=== PATIENT | male | born 1960 | race Caucasian/White ===

== ENCOUNTER 2020-09-30 12:55 | Outpatient (REF) | payer OTHER, SELFPAY ==
--- NOTE | 2020-09-30 13:04 | XR_ITS ---
EXAMINATION: CERVICAL SPINE, THORACIC SPINE, BILATERAL SHOULDERS. CLINICAL INFORMATION: Pain. COMPARISON: None TECHNIQUE: Cervical spine 5 views. Thoracic spine 3 views. 4 views each shoulder. FINDINGS: Cervical spine: There is mild straightening of cervical lordosis. There is loss of C5-C6 and C6-C7 disc heights with moderate ventral spondylosis. Rest the disc heights are normal. There is moderate bilateral narrowing of neural foramina from uncovertebral hypertrophic changes at the C4-C5 and C5-C6 disc level. Thoracic spine: There is normal thoracic kyphosis. The vertebral heights and alignment is normal. Mild loss of T12-L1 and L1/L2 disc heights with moderate ventral spondylosis noted. There is minimal levoscoliosis and mid dorsal spine. No acute fracture, lytic or sclerotic process seen. The paravertebral soft tissues are normal. Right shoulder: There is mild loss of right AC joint space with periarticular spurring. The glenohumeral joint space is maintained normal. No fracture, loose bodies or subluxation seen. Left shoulder: The glenohumeral and AC joint space is maintained normal. No visible acute fracture, dislocation or subluxation seen. The soft tissues are normal. XR/XR thoracic spine 3V IMPRESSION: Degenerative disc changes C5-C6 and C6-C7 disc levels with ventral spondylosis. Facet joint arthropathy with bilateral narrowing of neural foramina as described above. Mild levoscoliosis mid dorsal spine. No acute fracture seen. There are degenerative disc changes T12-L1 and L1-L2 disc levels. Mild degenerative changes right AC joint. The left shoulder appears unremarkable.
--- NOTE | 2020-09-30 13:04 | XR_ITS ---
EXAMINATION: CERVICAL SPINE, THORACIC SPINE, BILATERAL SHOULDERS. CLINICAL INFORMATION: Pain. COMPARISON: None TECHNIQUE: Cervical spine 5 views. Thoracic spine 3 views. 4 views each shoulder. FINDINGS: Cervical spine: There is mild straightening of cervical lordosis. There is loss of C5-C6 and C6-C7 disc heights with moderate ventral spondylosis. Rest the disc heights are normal. There is moderate bilateral narrowing of neural foramina from uncovertebral hypertrophic changes at the C4-C5 and C5-C6 disc level. Thoracic spine: There is normal thoracic kyphosis. The vertebral heights and alignment is normal. Mild loss of T12-L1 and L1/L2 disc heights with moderate ventral spondylosis noted. There is minimal levoscoliosis and mid dorsal spine. No acute fracture, lytic or sclerotic process seen. The paravertebral soft tissues are normal. Right shoulder: There is mild loss of right AC joint space with periarticular spurring. The glenohumeral joint space is maintained normal. No fracture, loose bodies or subluxation seen. Left shoulder: The glenohumeral and AC joint space is maintained normal. No visible acute fracture, dislocation or subluxation seen. The soft tissues are normal. XR/XR shoulder LT min 2V IMPRESSION: Degenerative disc changes C5-C6 and C6-C7 disc levels with ventral spondylosis. Facet joint arthropathy with bilateral narrowing of neural foramina as described above. Mild levoscoliosis mid dorsal spine. No acute fracture seen. There are degenerative disc changes T12-L1 and L1-L2 disc levels. Mild degenerative changes right AC joint. The left shoulder appears unremarkable.
--- NOTE | 2020-09-30 13:04 | XR_ITS ---
EXAMINATION: CERVICAL SPINE, THORACIC SPINE, BILATERAL SHOULDERS. CLINICAL INFORMATION: Pain. COMPARISON: None TECHNIQUE: Cervical spine 5 views. Thoracic spine 3 views. 4 views each shoulder. FINDINGS: Cervical spine: There is mild straightening of cervical lordosis. There is loss of C5-C6 and C6-C7 disc heights with moderate ventral spondylosis. Rest the disc heights are normal. There is moderate bilateral narrowing of neural foramina from uncovertebral hypertrophic changes at the C4-C5 and C5-C6 disc level. Thoracic spine: There is normal thoracic kyphosis. The vertebral heights and alignment is normal. Mild loss of T12-L1 and L1/L2 disc heights with moderate ventral spondylosis noted. There is minimal levoscoliosis and mid dorsal spine. No acute fracture, lytic or sclerotic process seen. The paravertebral soft tissues are normal. Right shoulder: There is mild loss of right AC joint space with periarticular spurring. The glenohumeral joint space is maintained normal. No fracture, loose bodies or subluxation seen. Left shoulder: The glenohumeral and AC joint space is maintained normal. No visible acute fracture, dislocation or subluxation seen. The soft tissues are normal. XR/XR cervical spine 4V IMPRESSION: Degenerative disc changes C5-C6 and C6-C7 disc levels with ventral spondylosis. Facet joint arthropathy with bilateral narrowing of neural foramina as described above. Mild levoscoliosis mid dorsal spine. No acute fracture seen. There are degenerative disc changes T12-L1 and L1-L2 disc levels. Mild degenerative changes right AC joint. The left shoulder appears unremarkable.
== END 2020-09-30 12:56 | disposition home or self-care (01) ==
LOC: HO.LAB 12:55
PROVIDERS: Referring Provider Registered Nurse; Visit Provider Registered Nurse
DX: M25.511 Pain in right shoulder (principal); M25.512 Pain in left shoulder; M54.2 Cervicalgia; M54.9 Dorsalgia, unspecified; R22.0 Localized swelling, mass and lump, head
CPT/HCPCS: 72050; 72072; 73030

== ENCOUNTER 2020-10-28 12:07 | Outpatient (REF) | payer OTHER, SELFPAY ==
--- NOTE | ~2020-10-28 | XR_ITS ---
EXAMINATION: XR LUMBOSACRAL SPINE WITH OBLIQUES CLINICAL INFORMATION: Low back pain COMPARISON: None TECHNIQUE: AP, both oblique, and lateral views of the lumbar spine. Lateral view of the lumbosacral junction. FINDINGS: There is mild 4 mm retrolisthesis of L1 with respect to T12 and L2. Bone alignment is otherwise normal. No fracture or dislocation is seen. There is degenerative disc disease at L1-L2 and L5-S1. There is multilevel degenerative spondylosis. There is severe lower thoracic spine facet arthritis. XR/XR lumbar spine 4V min IMPRESSION: Mild retrolisthesis of L1 with respect to T12 and L2. Degenerative disc disease at L1-L2 and L5-S1. Severe lower lumbar spine facet arthritis.
--- NOTE | ~2020-10-28 | XR_ITS ---
EXAMINATION: XR HIP, BILATERAL CLINICAL INFORMATION: Hip pain. COMPARISON: None TECHNIQUE: Bilateral hips each 2 views. FINDINGS: In bilateral hips, there is normal articulation. Joint spaces are maintained. No acute fracture or dislocation. Subtle subchondral lucency in the superior acetabulum bilaterally, suggests mild degenerative changes. No acute pelvic fractures seen. Surgical clips projected over the scrotal region. XR/XR hip LT min 2V IMPRESSION: Mild bilateral hip joint degeneration. No acute findings.
--- NOTE | ~2020-10-28 | XR_ITS ---
EXAMINATION: XR HIP, BILATERAL CLINICAL INFORMATION: Hip pain. COMPARISON: None TECHNIQUE: Bilateral hips each 2 views. FINDINGS: In bilateral hips, there is normal articulation. Joint spaces are maintained. No acute fracture or dislocation. Subtle subchondral lucency in the superior acetabulum bilaterally, suggests mild degenerative changes. No acute pelvic fractures seen. Surgical clips projected over the scrotal region. XR/XR hip RT min 2V IMPRESSION: Mild bilateral hip joint degeneration. No acute findings.
== END 2020-10-28 12:08 | disposition home or self-care (01) ==
LOC: HO.XRAY 12:07
PROVIDERS: PCP General Practice; Visit Provider General Practice
DX: M25.551 Pain in right hip (principal); M25.552 Pain in left hip; M54.42 Lumbago with sciatica, left side
CPT/HCPCS: 72110; 73502

== ENCOUNTER → 2020-11-12 10:02 | Outpatient (BNVA) | payer OTHER, SELFPAY | PROVIDERS: PCP General Practice; Visit Provider Nurse Practitioner Family | DX: M54.16 Radiculopathy, lumbar region (principal); Z79.899 Other long term (current) drug therapy | CPT/HCPCS: 99202 ==

== ENCOUNTER 2020-11-27 18:51 | Outpatient (REF) | payer OTHER, SELFPAY ==
--- NOTE | ~2020-11-27 | MR_ITS ---
EXAMINATION: MR LUMBAR SPINE WITHOUT CONTRAST CLINICAL INFORMATION: Lumbar region radiculopathy. COMPARISON: Lumbar spine radiographs from 10/28/2020. TECHNIQUE: MRI of the lumbar spine was obtained using routine sequences without contrast. FINDINGS: Mild left convex curvature of the lumbar spine. Mild degenerative retrolisthesis of L1 on L2 and L3 on L4. Minimal degenerative grade 1 anterolisthesis of L4 on L5. Advanced degenerative disc disease at L1-L2 and L5-S1. Moderate degenerative disc disease at all additional lumbar levels. Associated mixed Modic type discogenic endplate change including mild Modic type I discogenic edema at L1-L2, L3-L4, and L5-S1. Mild marrow edema within the posterior elements of L3-L5 consistent with degenerative stress reaction. No additional suspicious marrow edema. Chronic anterior wedging of L1 with 10% loss of anterior body height. Schmorl's node within the inferior endplate of L3. Otherwise, the vertebral body heights are well-maintained. The conus medullaris terminates at the level of L1. The distal spinal cord is normal in appearance. No significant abnormalities of the paraspinal musculature. The prostate gland appears enlarged deforming the floor of the urinary bladder, measuring up to 5.5 cm. Limited evaluation of the intra-abdominal structures without significant abnormalities. The abdominal aorta is of normal contour and caliber. AXIAL SPINAL LEVELS: T12-L1: Mild diffuse disc bulge. There is moderate bilateral facet joint arthropathy. There is mild to moderate bilateral neural foraminal stenosis. There is mild spinal canal stenosis. L1-L2: Moderate diffuse disc bulge. There is moderate to severe bilateral facet joint arthropathy. There is severe right and moderate left neural foraminal stenosis. There is stenosis of the subarticular zones with mild spinal canal stenosis centrally. L2-L3: Shallow diffuse disc bulge. There is moderate bilateral facet joint arthropathy. There is no neural foraminal stenosis. There is no spinal canal stenosis. L3-L4: Moderate diffuse disc bulge. There is an ovoid structure with T1 hypointensity and weak T2 hyperintensity filling the right subarticular zone, measuring 0.7 x 0.7 x 1.4 cm. This lesion appears extradural in nature. There is moderate bilateral facet joint arthropathy. There is severe right and moderate to severe left neural foraminal stenosis. There is stenosis of the right subarticular zone with no overt spinal canal stenosis centrally. L4-L5: Moderate diffuse disc bulge. There is severe right and moderate left facet joint arthropathy. There is moderate to severe left and moderate right neural foraminal stenosis. There is stenosis of the subarticular zones with mild to moderate spinal canal stenosis centrally. L5-S1: Moderate diffuse disc bulge with posterior osseous ridging. There is moderate bilateral facet joint arthropathy. There is severe bilateral neural foraminal stenosis. There is stenosis of the subarticular zones with no overt spinal canal stenosis centrally. MR/MR lumbar spine wo con IMPRESSION: 1. There is an ovoid structure filling the right subarticular zone at L3-L4. The appearance favors extruded/sequestered disc material; however, it would be difficult to exclude a small schwannoma. Follow-up contrast-enhanced imaging may help to further characterize. 2. Otherwise, moderate to advanced multilevel degenerative spondyloarthropathy of the lumbar spine as described in detail above. Most notably, there is mild to moderate spinal canal stenosis at L4-L5. Mild spinal canal stenoses at T12-L1 and L1-L2. Stenoses of the subarticular zones at L1-L2 and from L3-S1. Moderate to severe neural foraminal stenoses from T12-L2 and L3-S1. 3. Limited evaluation appears to demonstrate enlargement of the prostate gland with indenting of the floor of the urinary bladder.
== END 2020-11-27 18:52 | disposition home or self-care (01) ==
LOC: HO.MRI 18:51
PROVIDERS: Visit Provider Anesthesiology
DX: M54.16 Radiculopathy, lumbar region (principal)
CPT/HCPCS: 72148

== ENCOUNTER → 2020-12-03 08:59 | Outpatient (BNVA) | payer OTHER, SELFPAY | PROVIDERS: Visit Provider Nurse Practitioner Family | DX: M54.16 Radiculopathy, lumbar region (principal) | CPT/HCPCS: 99212 ==

== ENCOUNTER 2020-12-23 14:57 | Outpatient (REF) | payer OTHER, SELFPAY ==
--- NOTE | ~2020-12-23 | MR_ITS ---
MR LUMBAR SPINE WITH CONTRAST CLINICAL INFORMATION: Abnormal findings on prior lumbar spine MRI. COMPARISON: Lumbar spine MRI 11/27/2020. TECHNIQUE: MRI of the lumbar spine was obtained using routine sequences with contrast. Intravenous contrast: Gadavist 8.5 mL. FINDINGS: The previously described abnormality within the right L3-L4 subarticular zone/right L4 lateral recess reflects a peripherally enhancing inferiorly migrating right paracentral disc extrusion arising from the L3-L4 disc that compresses the traversing right L4 nerve root within the right L4 lateral recess. No solid enhancing mass lesions. Right-sided Modic type I endplate signal changes at L3-L4. Advanced multilevel degenerative changes are better seen and described in detail on the previous diagnostic lumbar spine MRI. Please see that report for further details. MR/MR lumbar spine w con IMPRESSION: - The previously described abnormality within the right L3-L4 subarticular zone/right L4 lateral recess reflects a peripherally enhancing inferiorly migrating right paracentral disc extrusion arising from the L3-L4 disc that compresses the traversing right L4 nerve root within the right L4 lateral recess on image 20 of series 3. No solid enhancing mass lesions. - Advanced multilevel degenerative changes are better seen and described in detail on the previous diagnostic lumbar spine MRI. Please see that report for further details.
== END 2020-12-23 14:58 | disposition home or self-care (01) ==
LOC: HO.MRI 14:57
PROVIDERS: Visit Provider Anesthesiology
DX: R93.7 Abnormal findings on diagnostic imaging of other parts of musculoskeletal system (principal)
CPT/HCPCS: 72149; A9585

== ENCOUNTER → 2020-12-30 09:35 | Outpatient (BNVA) | payer OTHER, SELFPAY | PROVIDERS: PCP General Practice; Visit Provider Nurse Practitioner Family | DX: M54.16 Radiculopathy, lumbar region (principal); M48.061 Spinal stenosis, lumbar region without neurogenic claudication; M47.816 Spondylosis without myelopathy or radiculopathy, lumbar region | CPT/HCPCS: Q3014 ==

== ENCOUNTER 2020-12-31 14:53 | Outpatient (REF) | payer OTHER, SELFPAY ==
[2020-12-31 15:51] LABS: Blood Urea Nitrogen 20 mg/dL (9-16); Estimated Glomerular Filt Rate > 60
[2020-12-31 16:25] LABS: Prostate Specific Antigen 3.77 ng/mL (<0.05-4.0)
== END 2020-12-31 14:54 | disposition home or self-care (01) ==
LOC: HO.LAB 14:53
PROVIDERS: Absent Provider Nurse Practitioner Family; PCP General Practice; Visit Provider Urology
DX: Z01.818 Encounter for other preprocedural examination (principal); Z12.5 Encounter for screening for malignant neoplasm of prostate; N13.8 Other obstructive and reflux uropathy; N40.1 Benign prostatic hyperplasia with lower urinary tract symptoms
CPT/HCPCS: 36415; 82565; 84153; 84520

== ENCOUNTER → 2021-01-02 11:48 | Outpatient (BNVA) | payer OTHER, SELFPAY | PROVIDERS: PCP General Practice; Visit Provider Urology | DX: N40.1 Benign prostatic hyperplasia with lower urinary tract symptoms (principal); N52.01 Erectile dysfunction due to arterial insufficiency | CPT/HCPCS: 99212 ==

== ENCOUNTER 2021-01-07 17:00 | Outpatient (RCR) | payer OTHER, SELFPAY | END 2021-01-13 10:22 | disposition other institution (70) | LOC: HO.PT 17:00 | PROVIDERS: Visit Provider Internal Medicine | DX: M54.41 Lumbago with sciatica, right side (principal) | CPT/HCPCS: 97110; 97112; 97162 ==

== ENCOUNTER 2021-01-12 08:22 | Outpatient (REF) | payer OTHER, SELFPAY ==
--- NOTE | ~2021-01-12 | XR_ITS ---
EXAMINATION: RIGHT HIP. RIGHT KNEE. CLINICAL INFORMATION: Pain. COMPARISON: None TECHNIQUE: 2 views right hip. 4 views right knee. FINDINGS: Right hip: 2 views of right hip reveal no visible acute fracture, dislocation or bony erosive changes. No loose body seen. The soft tissues are normal. There is evidence of previous vasectomy changes along the proximal scrotum. Right knee: The tricompartment joint space is normal. There is no visible acute fracture, dislocation or subluxation seen. No joint effusion seen. No bony abnormality. XR/XR hip RT min 2V IMPRESSION: Unremarkable right hip and right knee exam.
--- NOTE | ~2021-01-12 | XR_ITS ---
EXAMINATION: RIGHT HIP. RIGHT KNEE. CLINICAL INFORMATION: Pain. COMPARISON: None TECHNIQUE: 2 views right hip. 4 views right knee. FINDINGS: Right hip: 2 views of right hip reveal no visible acute fracture, dislocation or bony erosive changes. No loose body seen. The soft tissues are normal. There is evidence of previous vasectomy changes along the proximal scrotum. Right knee: The tricompartment joint space is normal. There is no visible acute fracture, dislocation or subluxation seen. No joint effusion seen. No bony abnormality. XR/XR knee RT 4V IMPRESSION: Unremarkable right hip and right knee exam.
== END 2021-01-12 08:23 | disposition home or self-care (01) ==
LOC: HO.XRAY 08:22
PROVIDERS: PCP General Practice; Visit Provider General Practice
DX: M25.561 Pain in right knee (principal); M25.551 Pain in right hip
CPT/HCPCS: 73502; 73564

== ENCOUNTER 2021-07-15 14:54 | Outpatient (REF) | payer OTHER, SELFPAY ==
[2021-07-15 17:54] LABS: PSA,Total (Free>4and<10) 1.79 ng/mL (0.00-4.00)
== END 2021-07-15 14:55 | disposition home or self-care (01) ==
LOC: HO.LAB 14:54
PROVIDERS: PCP General Practice; Visit Provider Urology
DX: Z12.5 Encounter for screening for malignant neoplasm of prostate (principal); N40.1 Benign prostatic hyperplasia with lower urinary tract symptoms; N13.8 Other obstructive and reflux uropathy
CPT/HCPCS: 36415; 84153

== ENCOUNTER → 2021-07-17 09:50 | Outpatient (BNVA) | payer OTHER, SELFPAY | PROVIDERS: PCP General Practice; Visit Provider Urology | DX: N40.1 Benign prostatic hyperplasia with lower urinary tract symptoms (principal); N13.8 Other obstructive and reflux uropathy; N52.01 Erectile dysfunction due to arterial insufficiency | CPT/HCPCS: 51798; 99212 ==

== ENCOUNTER 2021-11-18 14:00 | Outpatient (REF) | payer OTHER, SELFPAY ==
--- NOTE | ~2021-11-18 | XR_ITS ---
EXAMINATION: XR shoulder RT min 2V CLINICAL INFORMATION: Reason for Exam PAIN IN RIGHT SHOULDER COMPARISON: None TECHNIQUE: Four views of the shoulder. XR/XR shoulder RT min 2V FINDINGS/IMPRESSION: No acute fracture or dislocation. Mild degenerative changes of the acromioclavicular joint with degenerative spurring. Glenohumeral joint space is maintained. Soft tissues are unremarkable. Visualized portion of lung appears clear.
--- NOTE | ~2021-11-18 | XR_ITS ---
EXAMINATION: XR hip RT min 2V CLINICAL INFORMATION: Reason for Exam PAIN IN RIGHT HIP COMPARISON: Pelvic radiographs 10/28/2020 and 01/12/2021 TECHNIQUE: Two views of the hip. XR/XR hip RT min 2V FINDINGS/IMPRESSION: No acute fracture or dislocation. Moderate degenerative changes of the hip with loss of superolateral joint space which appears progressed from prior. Os acetabuli. Few calcified phleboliths in the pelvis. Stable subcentimeter sclerotic density in the right femur, possibly reflective of a bone island.
== END 2021-11-18 14:01 | disposition home or self-care (01) ==
LOC: HO.XRAY 14:00
PROVIDERS: PCP General Practice; Visit Provider General Practice
DX: M25.511 Pain in right shoulder (principal)
CPT/HCPCS: 73030; 73502

== ENCOUNTER 2021-12-03 09:54 | Outpatient (REF) | payer OTHER, SELFPAY ==
--- NOTE | ~2021-12-03 | XR_ITS ---
EXAMINATION: XR PELVIS CLINICAL INFORMATION: Pain in the hip COMPARISON: 11/18/2021 TECHNIQUE: AP view of the pelvis. FINDINGS: No fracture or dislocation. The hips are well aligned. Moderate degenerative change of the right hip with joint space narrowing, sclerosis, and osteophyte formation. Mild degenerative change of the left hip. The pelvic rim is intact. The sacroiliac joints and pubic symphysis are well aligned. Degenerative changes are seen at the lower lumbar spine. XR/XR pelvis 1-2V IMPRESSION: Moderate degenerative changes of the right hip.
== END 2021-12-03 09:55 | disposition home or self-care (01) ==
LOC: HO.HOSX 09:54
PROVIDERS: Visit Provider Orthopaedic Surgery
DX: M25.551 Pain in right hip (principal); M25.552 Pain in left hip; M53.86 Other specified dorsopathies, lumbar region; M16.11 Unilateral primary osteoarthritis, right hip; S43.001D Unspecified subluxation of right shoulder joint, subsequent encounter; V29.9XXD Motorcycle rider (driver) (passenger) injured in unspecified traffic accident, subsequent encounter; M54.12 Radiculopathy, cervical region; F17.210 Nicotine dependence, cigarettes, uncomplicated; F10.21 Alcohol dependence, in remission; F19.11 Other psychoactive substance abuse, in remission; F31.9 Bipolar disorder, unspecified
CPT/HCPCS: 72170; 99202

== ENCOUNTER 2022-02-02 14:00 | Outpatient (RCR) | payer OTHER, SELFPAY | END 2022-04-07 15:08 | disposition home or self-care (01) | LOC: HO.PT 14:00 | PROVIDERS: PCP General Practice; Visit Provider General Practice | DX: M25.551 Pain in right hip (principal) | CPT/HCPCS: 97110; 97161 ==

== ENCOUNTER 2022-02-04 13:59 | Outpatient (REF) | payer OTHER, SELFPAY ==
--- NOTE | ~2022-02-04 | US_ITS ---
EXAMINATION: US SCROTUM CLINICAL INFORMATION: Right testicular mass. COMPARISON: None TECHNIQUE: A sonogram of the scrotum was performed assessing leos-scale appearance and color Doppler flow. Spectral Doppler analysis of the arterial and venous flow were performed in the testes bilaterally. FINDINGS: RIGHT: Right testicle measures 3.77 x 1.64 x 2.96 cm, volume 9.59 mL. There is a small approximately 0.1 cm calcification in the periphery of the testicle. Spectral Doppler analysis of the arterial and venous flow is normal in the right testis. Right epididymal Doppler flow is normal. There are prominent varicosities, some of which demonstrate internal heterogeneous content, suggesting varicocele with possible thrombosis. There is a small hydrocele with internal septations and layering debris. LEFT: Left testicle measures 3.55 x 1.52 x 2.84 cm, volume 8.01 mL. There are several subcentimeter calcifications, largest measuring up to 0.1 cm. Spectral Doppler analysis of the arterial and venous flow is normal in the left testis. Left epididymal Doppler flow is increased. There is an elongated hyperechoic structure measuring approximately 0.5 cm in length in the soft tissues anterior to the left testis with posterior dirty shadowing. Varicoceles are also noted. There is a moderate size hydrocele with low-level echoes. US/US scrotum IMPRESSION: Complex examination with several findings. 1. Asymmetric hyperemia of the left epididymis raising the possibility of acute epididymitis. 2. Nonspecific elongated hyperechoic structure with posterior dirty shadowing adjacent to the left testis, could represent a foreign body with surrounding air. Recommend correlation with physical examination for history of trauma or a gangrenous infection. 3. Left greater than right hydroceles with debris and septations, concerning for superimposed infection. 4. Bilateral varicoceles. Some of these engorged veins are thrombosed on the right side. 5. Nonspecific bilateral testicular calcifications. This critical result was discussed with Diana HERNANDEZ at 02/05/2022 4:37 PM and it was ascertained that the content and urgency of the report was understood at the time of direct communication.
== END 2022-02-04 14:00 | disposition home or self-care (01) ==
LOC: HO.HMGCX 13:59
PROVIDERS: Visit Provider General Practice
DX: N50.89 Other specified disorders of the male genital organs (principal)
CPT/HCPCS: 76870

== ENCOUNTER 2022-03-12 16:00 | Emergency (ER) | payer OTHER, SELFPAY ==
--- NOTE | ~2022-03-12 | US_ITS ---
EXAMINATION: US SCROTUM CLINICAL INFORMATION: Right testicular pain. Question epididymitis.. COMPARISON: Scrotal ultrasound dated 02/04/2022. TECHNIQUE: A sonogram of the scrotum was performed assessing leos-scale appearance and color Doppler flow. Spectral Doppler analysis of the arterial and venous flow were performed in the testes bilaterally. FINDINGS: RIGHT: Right testicle measures 3.9 x 2.7 x 2.3 cm, volume 12.4 mL. A few scattered parenchymal calcifications are seen, nonspecific. No focal testicular parenchymal lesions are visualized. Spectral Doppler analysis of the arterial and venous flow in the right testis was not performed. Right epididymal head is normal in size. The previously demonstrated right varicocele is not specifically imaged, though some serpiginous vascular structures are seen in the soft tissues posterior to the right testicle, incompletely visualized. There is a persistent small complex hydrocele with low-level internal echoes and thin internal septations, similar to the previous exam. Right epididymal Doppler flow is normal. LEFT: Left testicle measures 3.6 x 2.1 x 2.4 cm, volume 9.5 mL. Nonspecific coarse calcifications is seen in region of the rete testes. No focal testicular parenchymal lesions are visualized. Spectral Doppler analysis of the arterial and venous flow in the left testis was not performed. Left epididymal head is normal in size. Small left mildly complicated hydrocele with internal septations and low-level internal echoes. Previously seen left-sided varicocele was not definitely seen.. Left epididymal Doppler flow is normal.there is a linear echogenic foreign body seen in the extratesticular soft tissues in the lateral left hemiscrotum, measuring 0.6 cm in length. There is a small complex hydrocele again noted with low-level internal echoes and thin internal septations, similar to the prior exam. US/US scrotum IMPRESSION: 1. No evidence of epididymoorchitis. No definite evidence of testicular torsion, though evaluation is mildly limited without the benefit of spectral Doppler assessment. The patient had left the department and could not be brought back for spectral Doppler analysis. 2. Bilateral complex hydroceles again seen. 3. Varicoceles previously demonstrated are poorly visualized on this exam. 4. Redemonstration of linear echogenic foreign body in the soft tissues lateral to the left testicle.
[2022-03-12 16:07] VITALS: BP 143/93; PULSE 124; RESP 18; TEMP 36.4; O2SAT 95; BMI 30.7
[2022-03-12 16:28] LABS: MANUAL DIFF FLAG NO
[2022-03-12 16:29] LABS: Basophils Percent Auto 0.4 % (0-2); Eosinophils Absolute Auto 0.2 X10*3/uL (0.0-0.4); Eosinophils Percent Auto 1.9 % (0-4); Hematocrit 48.8 % (42.0-52.0); Hemoglobin 16.2 g/dl (14.0-18.0); Imm Gran Abs Auto 0.03 X10*3/uL (0.00-0.03); Imm Gran Pct Auto 0.3 % (0.0-0.4); Lymphocytes Absolute Auto 2.6 X10*3/uL (1.2-4.9); Lymphocytes Percent Auto 25.3 % (20-40); Mean Corpuscular HGB Conc 33.2 g/dl (31.0-36.0); Mean Corpuscular Hemoglobin 29.6 pg (27.0-33.0); Mean Corpuscular Volume 89.2 fL (80.0-98.0); Mean Platelet Volume 8.7 fL (9.4-12.4); Monocytes Percent Auto 9.8 % (2-11); Neutrophils Absolute Auto 6.5 x10*3/uL (2.0-8.3); Neutrophils Percent Auto 62.3 % (45-73); Platelet Count 332 X10*3/uL (160-400); Red Blood Count 5.47 X10*6/uL (4.60-5.80); Red Cell Distribution Width 13.4 % (11.0-16.0); White Blood Count 10.4 X10*3/uL (4.8-10.8)
[2022-03-12 16:37] LABS: Appearance Urine HAZY; Color Urine DK YELLOW; Glucose Urine UA NEG (NEG); Leukocyte Esterase Urine NEG (NEG); Nitrite Urine NEG (NEG); Specific Gravity - Urine >= 1.030 (1.005-1.025); UACC Culture Trigger NO; Urine Blood 3+ (NEG); Urine Ketones 5 MG/DL (NEG); Urine Protein 2+ MG/DL (NEG-TRACE)
[2022-03-12 16:54] LABS: Amorphous Sediment Urine 2+ /LPF; Calcium Oxalate Crystals Urine TRACE /LPF; Mucus Urine 4+ /LPF; RBC Urine 30-49 /HPF (0); Squamous Epithelial Cell Urine TRACE /LPF; WBC Urine 0 /HPF (0-4)
[2022-03-12 16:57] LABS: Alanine Aminotransferase 22 U/L (0-40); Albumin Level 4.2 g/dL (3.5-5.0); Alkaline Phosphatase 86 U/L (39-117); Anion Gap 12 (12-20); Aspartate Amino Transferase 16 U/L (5-37); Bilirubin Total 0.4 mg/dL (0.0-1.0); Blood Urea Nitrogen 15 mg/dL (9-16); Calcium 9.4 mg/dL (8.4-10.2); Carbon Dioxide 25 mmol/L (22-29); Chloride 107 mmol/L (96-108); Creatinine Clr Calc Pharmacy 74.8; Estimated Glomerular Filt Rate > 60; Glucose Random 128 mg/dL (60-115); Lipase 23 U/L (8-78); Sodium 140 mmol/L (135-145); Total Protein 6.6 g/dL (6.5-8.0)
--- NOTE | 2022-03-12 17:19 | ED.MALEGU ---
HPI - Male Genitourinary General Chief complaint: Urogenital-Male Stated complaint: Infection left testicle Time Seen by Provider: 03/12/22 17:19 Source: patient Mode of arrival: ambulatory Limitations: no limitations History of Present Illness HPI Narrative: Patient's history of a right epididymitis in 02/24 been treated with Levaquin comes here for increased pain and swelling for last few days now complaining of pain in the left testicle also no penile discharge no urinary symptoms Related Data Home Medications Medication Instructions Recorded Confirmed acetaminophen 650 mg 1,300 mg PO BID PRN 11/12/20 12/30/20 tablet,extended release bupropion HCl (smoking deter) 150 150 mg PO BID 11/12/20 12/30/20 mg tablet,12 hr sustained-release(smoking deterrent) diclofenac sodium 1 % topical gel g topical 11/12/20 12/30/20 divalproex 250 mg tablet,delayed 250 mg PO BID 11/12/20 12/30/20 release atorvastatin 20 mg tablet 20 mg PO DAILY 01/02/21 ibuprofen 800 mg tablet 800 mg PO TID 01/02/21 sildenafil 50 mg tablet 50 mg PO DAILY PRN 01/02/21 Previous Rx's Medication Instructions Recorded tamsulosin 0.4 mg capsule 0.4 mg PO BEDTIME PRN Urinary 01/08/21 weakness 30 days #30 caps doxycycline hyclate 100 mg tablet 100 mg PO BID #20 tabs 03/12/22 ibuprofen 600 mg tablet 600 mg PO Q6H PRN pain #20 tabs 03/12/22 Allergies Allergy/AdvReac Type Severity Reaction Status Date / Time No Known Allergies Allergy Verified 07/17/21 10:01 [No Known Allergies*] Review of Systems Review of Systems: Yes all other systems are reviewed and are negative [facility] Past Medical History Medical History Alcoholism in remission Benign prostatic hyperplasia with lower urinary tract symptoms Bipolar 1 disorder Cervical radiculopathy Chronic neck and back pain Drug addiction in remission History of adenomatous polyp of colon Social History Social History Alcohol intake: former Patient Tobacco Use Status: Current everyday Tobacco user Tobacco use type: Cigarette Cigarettes Per Day: 20 Years Smoked: 35 Advance Directives: No Advance Directives Information Provided: Yes Physical Exam Vital Signs: Vital Signs: Last Vital Signs Temp 97.6 F 03/12/22 16:07 Pulse 99 03/12/22 17:26 Resp 18 03/12/22 17:26 BP 113/71 03/12/22 17:26 Pulse Ox 95 03/12/22 17:26 O2 Del Method 03/12/22 17:26 BMI result Body Mass Index 30.7 Appearance: Alert. Oriented X3. No acute distress. Neck: Normal inspection. Neck supple. CVS: Normal heart rate and rhythm. Pulses normal. Respiratory: No respiratory distress. Equal air entry bilateral, Abdomen: Soft and nontender. Bowel sounds are present, no mass palpable, no CVA tenderness Skin: Skin warm and dry. Normal skin color. Normal skin turgor. Extremities: No lower extremity edema. No calf tenderness Neuro: Oriented X 3. : Male genitals images: 1. Slight swelling of the epididymis with tenderness no fluid collection no hydrocele or hernia MDM - Male Genitourinary MDM Narrative Medical decision making narrative: Please complex right hydrocele patient patient home advised to follow with urologist Lab Data Attestation: I reviewed the patient's lab results. Result diagrams: 03/12/22 16:21 03/12/22 16:21 Labs: Lab Results 03/12/22 03/12/22 03/12/22 Range/Units 16:21 16:21 16:21 WBC 10.4 (4.8-10.8) X10*3/uL RBC 5.47 (4.60-5.80) X10*6/uL Hgb 16.2 (14.0-18.0) g/dl Hct 48.8 (42.0-52.0) % MCV 89.2 (80.0-98.0) fL MCH 29.6 (27.0-33.0) pg MCHC 33.2 (31.0-36.0) g/dl RDW 13.4 (11.0-16.0) % Plt Count 332 (160-400) X10*3/uL MPV 8.7 L (9.4-12.4) fL Immature Gran % (Auto) 0.3 (0.0-0.4) % Neut % (Auto) 62.3 (45-73) % Lymph % (Auto) 25.3 (20-40) % [place] % (Auto) 9.8 (2-11) % Eos % (Auto) 1.9 (0-4) % Baso % (Auto) 0.4 (0-2) % Lymph # (Auto) 2.6 (1.2-4.9) X10*3/uL [place] # (Auto) 1.0 (0.1-1.2) X10*3/uL Eos # (Auto) 0.2 (0.0-0.4) X10*3/uL Baso # (Auto) 0.0 (0.0-0.2) X10*3/uL Abs Immat Gran (auto) 0.03 (0.00-0.03) X10*3/uL Absolute Neuts (auto) 6.5 (2.0-8.3) x10*3/uL Absolute Nucleated RBC 0.000 (0.0-0.012) X10*3/uL Nucleated RBC % (auto) 0.0 (0.0-0.2) /100WBC Sodium 140 (135-145) mmol/L Potassium 4.0 (3.3-5.1) mmol/L Chloride 107 (96-108) mmol/L Carbon Dioxide 25 (22-29) mmol/L Anion Gap 12 (12-20) BUN 15 (9-16) mg/dL Creatinine 1.08 (0.5-1.4) mg/dL Estim Creat Clear Calc 74.8 Estimated GFR > 60 Random Glucose 128 H (60-115) mg/dL Calcium 9.4 (8.4-10.2) mg/dL Total Bilirubin 0.4 (0.0-1.0) mg/dL AST 16 (5-37) U/L ALT 22 (0-40) U/L Alkaline Phosphatase 86 (39-117) U/L Total Protein 6.6 (6.5-8.0) g/dL Albumin 4.2 (3.5-5.0) g/dL Lipase 23 (8-78) U/L Urine Color DK YELLOW Urine Appearance HAZY Urine pH 6.0 (5.0-8.0) Ur Specific [place] >= 1.030 H (1.005-1.025) Urine Protein 2+ H (NEG-TRACE) MG/DL Urine Glucose (UA) NEG (NEG) MG/DL Urine Ketones 5 (NEG) MG/DL Urine Blood 3+ H (NEG) Urine Nitrite NEG (NEG) Ur Leukocyte Esterase NEG (NEG) Urine RBC 30-49 H (0) /HPF Urine WBC 0 (0-4) /HPF Ur Squamous Epith Cells TRACE /LPF Calcium Oxalate Crystal TRACE /LPF Amorphous Sediment 2+ /LPF Urine Bacteria NONE /LPF RBC Casts 1-4 /LPF Urine Mucus 4+ /LPF Discharge Plan Discharge Clinical Impression: Hydrocele, right Patient Disposition: Home, Self-Care Instructions: Hydrocele (ED) Additional Instructions: Scrotal support as advised Follow with urologist Doxycycline and ibuprofen for inflammation Prescriptions: New ibuprofen 600 mg tablet 600 mg PO Q6H PRN (Reason: pain) Qty: 20 0RF doxycycline hyclate 100 mg tablet 100 mg PO BID Qty: 20 0RF No Action tamsulosin 0.4 mg capsule 0.4 mg PO BEDTIME PRN (Reason: Urinary weakness) 30 Days Qty: 30 6RF acetaminophen 650 mg tablet extended release 1,300 mg PO BID PRN divalproex 250 mg tablet,delayed release (DR/EC) 250 mg PO BID diclofenac sodium 1 % gel topical bupropion HCl (smoking deter) 150 mg tablet extended release 12 hr 150 mg PO BID ibuprofen 800 mg tablet 800 mg PO TID sildenafil 50 mg tablet 50 mg PO DAILY PRN atorvastatin 20 mg tablet 20 mg PO DAILY Referrals: Silvino Dwyer MD [Physician] - 1 week Interventions: ED Discharge Assessment Last Done: 03/12/22 20:13
[2022-03-12 17:26] VITALS: BP 113/71; PULSE 99; RESP 18; O2SAT 95
[2022-03-12] MEDS: Ibuprofen 600 MG TABLET PO (19:44)
[2022-03-13 02:44] LABS: CT PCR NOT DETECTED (Not Detect.); NG PCR NOT DETECTED (Not Detect.)
== END 2022-03-12 20:22 | disposition home or self-care (01) ==
PROVIDERS: Emergency Provider Internal Medicine; PCP General Practice
DX: N43.2 Other hydrocele (principal); N50.812 Left testicular pain; N50.811 Right testicular pain; F17.200 Nicotine dependence, unspecified, uncomplicated; F11.11 Opioid abuse, in remission; F10.11 Alcohol abuse, in remission
CPT/HCPCS: 36415; 76870; 80053; 81001; 83690; 85025; 87491; 87591; 99284

== ENCOUNTER 2022-08-05 12:15 | Outpatient (REF) | payer OTHER, SELFPAY | END 2022-08-05 12:16 | disposition home or self-care (01) | LOC: HO.HOSX 12:15 | PROVIDERS: Visit Provider Orthopaedic Surgery | DX: Z13.89 Encounter for screening for other disorder (principal) ==

== ENCOUNTER 2022-10-20 11:00 | Outpatient (RCR) | payer OTHER, SELFPAY ==
--- NOTE | 2022-10-20 12:24 | P.HPPSP_ITS ---
HPI Date of Service: 10/20/22 Chief Complaint: bipolar,[place] Sources of Information: patient interviewed, chart reviewed and crisis/core team assessment reviewed HPI Medical Problems Affecting Mental Status: No Narrative: Mr. Friedman is a male, referred to partial program through his therapist, due to increased symptoms of depression, including isolation, feeling helpless, poor sleep, decreased energy, decreased appetite alternating with over eating, poor concentration. History of bipolar I and cocaine use disorder. Patient explains that past several years due to COVID he has become more more isolated, where his symptoms have steadily worsened. Also would have cocaine delivered to his home. States he would use when he got paid the beginning of the month, and it would last approximately 1 week. Lives alone. First sought treatment with a therapist in 1991, while in [place]. Has been treated off and on in the past for bipolar disorder, has had good effect with Depakote in the past. Has had episodes of coby/hypomania in his past, where he would stay up for days at a time, start multiple projects in the home, with grandiosity, flight of ideas, pressured speech, engagement in risky behaviors. Was recently started with Depakote 250 mg b.i.d. last week. Had also taken trazodone in the past, which helped with sleep. Had been taking 100 mg from an old script, dose was changed last week to 50 mg at bedtime. He states that it is helping, although continues to struggle with staying asleep. Denies any SI/HI, no safety concerns. 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 Last use of coke was 4-5 days ago. No cravings or withdrawals at this time. Describes mood today as ?impressively normal ?, but then states that he is experiencing some depression and anxiety. Looks forward to participation in the program, as he would like to become more active in his own mental health, does not want to isolate an continue to have symptoms worsen. Also would like to focus on recovery from cocaine use. Past Psychiatric History: Medication trials: Wellbutrin, Depakote, trazodone, took others, but does not recall the names. PHP in early . Has therapist, recently met with a psych prescriber through [facility], does not recall name. No IP hx Medical Evaluation Reviewed: Yes [facility] Medical History Alcoholism in remission Benign prostatic hyperplasia with lower urinary tract symptoms Bipolar 1 disorder Cervical radiculopathy Chronic neck and back pain Drug addiction in remission History of adenomatous polyp of colon Family History: Mother: Depression/anxiety Social History: Born and raised in [facility], 1 sister, 1 brother. 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 and 3 times. Two daughters 1 son. History of homelessness. Currently living in subsidized housing, would like to move to a safer neighborhood. Substance History: Nicotine: Longstanding, current half pack per day. Cannabis longstanding, occasional. Last used 10/16/2022. Crack cocaine since , longstanding chronic, last use 10/16/2022. Alcohol: history alcohol use disorder, last use 2018. Trauma History: Reports trauma history, no details provided Meds/Allergies Meds Home Medications Medication Instructions Recorded Confirmed Type acetaminophen 650 mg 1,300 mg PO BID PRN 11/12/20 12/30/20 History tablet,extended release bupropion HCl (smoking deter) 150 150 mg PO BID 11/12/20 12/30/20 History mg tablet,12 hr sustained-release(smoking deterrent) diclofenac sodium 1 % topical gel g topical 11/12/20 12/30/20 History divalproex 250 mg tablet,delayed 250 mg PO BID 11/12/20 12/30/20 History release atorvastatin 20 mg tablet 20 mg PO DAILY 01/02/21 History ibuprofen 800 mg tablet 800 mg PO TID 01/02/21 History sildenafil 50 mg tablet 50 mg PO DAILY PRN 01/02/21 History Allergies Allergies Allergy/AdvReac Type Severity Reaction Status Date / Time No Known Allergies Allergy Verified 07/07/22 14:31 [No Known Allergies*] Mental Status Exam Mental Status Exam Narrative: Well-developed male. Appears stated age. Appropriately dressed for weather/occasion. Ambulates with walker. No tics or tremors, no cogwheeling or rigidity noted. No perceptual disturbances, no evidience of psychosis noted. No constriction or lability of affect noted. Patient Appearance: Appropriate Patient Orientation: Person, Place, Time and Situation Level of Consciousness: Appropriate and Alert Patient Behavior: Appropriate, Cooperative and Good Eye Contact Mood Description: Depressed and Anxious Affect Description: Depressed and Anxious Patient Cognition Impaired: No Ability to Follow Directions: Good Speech Pattern: Appropriate Memory Description: Intact Hallucinations: None Delusions: Not Present Thought Process: Intact Thought Content: positive for Intact Depressive Symptoms: Increased Anxiety, Difficulty Sleeping, Changes in Appetite, Loss of Int. in Activity, Isolating-Friends/Family, Increased Fatigue, Loss of Energy and Difficulty Concentrating Judgement: Fair Assessment & Plan Assessment & Plan (1) Bipolar 1 disorder, depressed, moderate: Status: Acute Code(s): F31.32 - Bipolar disorder, current episode depressed, moderate Assessment and Plan: Patient presents with recent crack cocaine use, bipolar 1 disorder, episode currently depressed. Referred by outpatient therapist presents with no affect No lability or constriction of affect noted. Was referred due to increased symptoms of feeling isolated, helpless, poor sleep, decreased energy, fluctuating appetite, poor concentration. No SI, either active or passive. Recently has been restarted with Depakote 250 b.i.d., reports that he started it last week. Also reports has been restarted with trazodone, current dose 50 mg at bedtime p.r.n. for sleep. (2) Cocaine dependence, uncomplicated: Status: Acute Code(s): F14.20 - Cocaine dependence, uncomplicated Assessment and Plan: Reports has struggled with cooking addiction since the 80s. Has had periods of sobriety. Reports that he has become more isolated in past several years, was having it delivered to his home. Last use 4 days ago. He denies any withdrawals or cravings at this time. Plan 1. Continue with current [facility] plan of care. 2. Continue with medications as currently prescribed by outpatient providers. 3. Education regarding substance use provided. 4. Follow-up as per protocol. Patient educated on: diagnosis, medication risk/benefits, substance abuse and therapeutic strategies Informed Consent: understands Reason for continued partial hosp. stay Substantial Risk for: inability to function and rapid decompensation Certification I certify that partial hospital treatment is medically necessary due to the symptoms and problems resulting from the patient's mental illness and the failure to treat the patient at the partial hospital level of care would likely result in the patient requiring inpatient psychiatric care which could not be prevented at a less intensive level of care. Time Spent With Patient Time: Total time managing care of this patient today _60___ minutes.
--- NOTE | 2022-10-20 13:13 | PC.ADMIT ---
Unable to complete nursing assessment as patient left the program. I called the patient at home and the person who answered the phone stated he went to the store and will be right back. I asked the person who answered the phone to have him call me when he gets back. Patient may have thought he was here for a half day.
--- NOTE | 2022-10-21 09:35 | HO.PHP ---
The client did not come in this morning and did not call. I called him but he did not answer. I could not leave a message because he did not set up his voicemail. I called Olivia Connor , his emergency contact. She did not answer and did not have her voicemail set up either.
--- NOTE | 2022-10-21 15:18 | HO.PHP ---
I spoke with the clients contact Estefany. She reports that client was sick today and will be in tomorrow.
--- NOTE | 2022-10-21 15:19 | HO.PHP ---
The clients case was reviewed and opened in tratement team
--- NOTE | 2022-10-22 09:43 | HO.PHP ---
I called the client because he did not come in today. I could not leave a message because his voice mail is not set up.
== END 2022-10-20 23:59 | disposition left against medical advice (07) ==
LOC: HO.PHPA 11:00
PROVIDERS: Visit Provider Psychiatry & Neurology Psychiatry
DX: F31.32 Bipolar disorder, current episode depressed, moderate (principal); F14.20 Cocaine dependence, uncomplicated; Z79.899 Other long term (current) drug therapy
CPT/HCPCS: 90791; 90853

== ENCOUNTER 2022-11-22 20:11 | Emergency (ER) | payer OTHER, SELFPAY ==
[2022-11-22 20:16] VITALS: BP 152/101; BP 158/98; PULSE 102; PULSE 114; RESP 20; TEMP 36.8; O2SAT 98; O2SAT 99; BMI 29.0
--- NOTE | 2022-11-22 21:10 | ED.MALEGU ---
HPI - Male Genitourinary General Chief complaint: Urogenital-Male Stated complaint: unable to void Time Seen by Provider: 11/22/22 21:10 Source: patient Mode of arrival: ambulatory Limitations: no limitations History of Present Illness HPI Narrative: 62-year-old male who presents emergency department for evaluation of urinary retention. He states he has not been able to urinate 24 hours. He states that he is experiencing lower abdominal pain which she states the constant, pressure-like pain and the urge to urinate but is unable to. He states that in 2019 he had bladder obstruction secondary to enlarged prostate required procedure and Jones catheter. He denied fever, chills, dysuria or frequency. He states that over the past 2 months he has had difficulty urinating. Related Data Home Medications Medication Instructions Recorded Confirmed acetaminophen 650 mg 1,300 mg PO BID PRN 11/12/20 12/30/20 tablet,extended release bupropion HCl (smoking deter) 150 150 mg PO BID 11/12/20 12/30/20 mg tablet,12 hr sustained-release(smoking deterrent) diclofenac sodium 1 % topical gel g topical 11/12/20 12/30/20 divalproex 250 mg tablet,delayed 250 mg PO BID 11/12/20 12/30/20 release atorvastatin 20 mg tablet 20 mg PO DAILY 01/02/21 ibuprofen 800 mg tablet 800 mg PO TID 01/02/21 sildenafil 50 mg tablet 50 mg PO DAILY PRN 01/02/21 Previous Rx's Medication Instructions Recorded tamsulosin 0.4 mg capsule 0.4 mg PO BEDTIME PRN Urinary 01/08/21 weakness 30 days #30 caps doxycycline hyclate 100 mg tablet 100 mg PO BID #20 tabs 03/12/22 ibuprofen 600 mg tablet 600 mg PO Q6H PRN pain #20 tabs 03/12/22 ciprofloxacin HCl 500 mg tablet 500 mg PO Q12H 10 days #20 tabs 11/22/22 (Cipro) tamsulosin 0.4 mg capsule (Flomax) 0.4 mg PO DAILY #30 caps 11/22/22 Allergies Allergy/AdvReac Type Severity Reaction Status Date / Time No Known Allergies Allergy Verified 07/07/22 14:31 [No Known Allergies*] Review of Systems Review of Systems: Yes all other systems are reviewed and are negative PMFSH Past Medical History Medical History Alcoholism in remission Benign prostatic hyperplasia with lower urinary tract symptoms Bipolar 1 disorder Cervical radiculopathy Chronic neck and back pain Drug addiction in remission History of adenomatous polyp of colon Social History Social History Household Members: None Alcohol intake: never Patient Tobacco Use Status: Current everyday Tobacco user Tobacco use type: Cigarette Cigarettes Per Day: 20 Years Smoked: 35 Smoked in Last 30 Days: Yes Use of substances other than those prescribed or required for medical reasons: Yes Substance Use Type: [employer] Drugs and Marijuana Substance Use Frequency: Occasionally Advance Directives: No Advance Directives Information Provided: No Physical Exam Vital Signs: Vital Signs: Last Vital Signs Temp 98.3 F 11/22/22 20:16 Pulse 114 H 11/22/22 20:16 Resp 20 11/22/22 20:16 BP 158/98 H 11/22/22 20:16 Pulse Ox 99 11/22/22 20:16 O2 Del Method 11/22/22 20:16 BMI result Body Mass Index 29.0 Elevated blood pressure 158/90, elevated prostate 114 General: Awake, alert, male patient appears to be in distress secondary to his abdominal pain HEENT: Normal cephalic atraumatic, pupils equal round reactive light, sclera contact however normal, mouth revealed moist membranes Neck: Soft Lungs: Clear to auscultation, breath sounds symmetric bilaterally Abdomen: Bladder is distended, moderate to severe suprapubic tenderness Back: No CVA tenderness Extremities: No Neuro: Nonfocal Medical Decision Making Medical Decision Making MDM Narrative: 62-year-old male who has a history of BPH status post procedure 2019 who presents to emergency department with 2 months of difficulty urinating with 24 hours of unable to urinate. Vital signs did reveal an elevated pulse and elevated blood pressure. Exam revealed distended bladder with moderate to severe tenderness palpation over the suprapubic area. Patient's presentation is consistent with urinary retention. I ordered CBC, CMP, urinalysis. Patient was ordered to get a Jones catheter 2313: My interpretation of patient's labs are as follows: Elevated WBC 59811. Elevated BUN 18. Elevated glucose 116. Urinalysis was positive for blood, protein and leukocyte esterase negative for nitrates. Microscopic revealed 11-20 RBCs 21-50 WBCs but no bacteria. The Jones catheter was inserted by nursing staff the patient had 1600 cc of urine drained from his bladder. Patient was given Flomax 0.4 mg orally. I will treat the patient with antibiotics for possible UTI versus prostatitis. Patient was given Levaquin 750 mg orally. He was started on ciprofloxacin 500 mg q.12 hours for 7 days. He was also started on Flomax 0.4 mg at night. Patient was advised to contact her on-call urologist for follow-up in 4-7 days. Differential Diagnosis Differential Diagnoses: The differential diagnosis associated with the presentation includes Differential diagnosis includes was not limited to prostate hypertrophy, prostate cancer, prostatitis, urinary tract infection, urethral stricture, bladder dystonia Admission/Observation Differential diagnosis includes but is not limited to urinary tract infection, prostatitis, BPH, prostate cancer, bladder obstruction, urethral stricture Lab Data [facility] Lab Attestation statement: I reviewed the patient's lab results. Please see [facility] 11/22/22 21:05 11/22/22 21:05 Labs: Lab Results 11/22/22 11/22/22 11/22/22 Range/Units 21:05 21:05 21:37 WBC 12.5 H (4.8-10.8) X10*3/uL RBC 5.87 H (4.60-5.80) X10*6/uL Hgb 17.3 (14.0-18.0) g/dl Hct 52.0 (42.0-52.0) % MCV 88.6 (80.0-98.0) fL MCH 29.5 (27.0-33.0) pg MCHC 33.3 (31.0-36.0) g/dl RDW 13.2 (11.0-16.0) % Plt Count 340 (160-400) X10*3/uL MPV 8.7 L (9.4-12.4) fL Absolute Nucleated RBC 0.000 (0.0-0.012) X10*3/uL Nucleated RBC % (auto) 0.0 (0.0-0.2) /100WBC Sodium 140 (135-145) mmol/L Potassium 4.3 (3.3-5.1) mmol/L Chloride 105 (96-108) mmol/L Carbon Dioxide 24 (22-29) mmol/L Anion Gap 15 (12-20) BUN 18 H (9-16) mg/dL Creatinine 0.93 (0.5-1.4) mg/dL Estim Creat Clear Calc 84.7 Estimated GFR > 60 Random Glucose 116 H (60-115) mg/dL Calcium 9.4 (8.4-10.2) mg/dL Total Bilirubin 0.4 (0.0-1.0) mg/dL AST 14 (5-37) U/L ALT 11 (0-40) U/L Alkaline Phosphatase 78 (39-117) U/L Total Protein 6.9 (6.5-8.0) g/dL Albumin 4.3 (3.5-5.0) g/dL Urine Color Yellow Urine Appearance Clear Urine pH 6.5 (5.0-9.0) Ur Specific [place] 1.020 (1.005-1.025) Urine Protein 30 (1+) H (Neg-Trace) mg/dL Urine Glucose (UA) Negative (Negative) mg/dL Urine Ketones Trace (Negative) mg/dL Urine Blood Small (1+) H (Negative) Urine Nitrite Negative (Negative) Ur Leukocyte Esterase Small (1+) H (Negative) Urine RBC 11-20 H (0-2) /HPF Urine WBC 21-50 H (0-5) /HPF Ur Squamous Epith Cells 0-2 (0-2) /HPF Urine Bacteria None Seen (None Seen) Hyaline Casts 0-2 (0-2) /LPF Discharge Plan Discharge Clinical Impression: Acute urinary retention, Acute prostatitis Patient Disposition: Home, Self-Care Instructions: Prostatitis (ED), Urinary Retention in Men (ED) Additional Instructions: When we inserted the Jones catheter into her bladder you had 1600 cc of urine that was drained out. Your blood work was unremarkable. Your urine did reveal 11-20 red blood cells and 21-50 white blood cells in your microscopic evaluation but there was no bacteria. At this time a concerned that she might have a urinary tract infection versus an infection of your prostate as the cause of your inability to urinate. You received Levaquin 750 mg orally. I am starting you on an antibiotic called ciprofloxacin 500 mg every 12 hours. Take your 1st dose of ciprofloxacin tomorrow night (11/23/2022) at 9:00PM and then take it every 12 hours for 10 days You also received Flomax (tamsulosin) 0.4 mg orally. This medication helps reduce swelling in your prostate, take this once a night and take your next dose tomorrow night at 9:00PM Follow-up with on-call urologist, Dr. Dwyer in 4-7 days for re-evaluation. Please return to the emergency department if your symptoms get worse or if you develop any symptoms that are concerning to you. Prescriptions: New ciprofloxacin HCl [Cipro] 500 mg tablet 500 mg PO Q12H 10 Days Qty: 20 0RF tamsulosin [Flomax] 0.4 mg capsule 0.4 mg PO DAILY Qty: 30 0RF No Action tamsulosin 0.4 mg capsule 0.4 mg PO BEDTIME PRN (Reason: Urinary weakness) 30 Days Qty: 30 6RF ibuprofen 600 mg tablet 600 mg PO Q6H PRN (Reason: pain) Qty: 20 0RF doxycycline hyclate 100 mg tablet 100 mg PO BID Qty: 20 0RF acetaminophen 650 mg tablet extended release 1,300 mg PO BID PRN divalproex 250 mg tablet,delayed release (DR/EC) 250 mg PO BID diclofenac sodium 1 % gel topical bupropion HCl (smoking deter) 150 mg tablet extended release 12 hr 150 mg PO BID ibuprofen 800 mg tablet 800 mg PO TID sildenafil 50 mg tablet 50 mg PO DAILY PRN atorvastatin 20 mg tablet 20 mg PO DAILY Referrals: Silvino Dwyer MD [Physician] - 1 week (Urinary retention, 1600 cc, UTI versus prostatitis)
[2022-11-22 21:14] LABS: Hemoglobin 17.3 g/dl (14.0-18.0); Mean Corpuscular HGB Conc 33.3 g/dl (31.0-36.0); Mean Corpuscular Hemoglobin 29.5 pg (27.0-33.0); Mean Corpuscular Volume 88.6 fL (80.0-98.0); Mean Platelet Volume 8.7 fL (9.4-12.4); Platelet Count 340 X10*3/uL (160-400); Red Blood Count 5.87 X10*6/uL (4.60-5.80); Red Cell Distribution Width 13.2 % (11.0-16.0); White Blood Count 12.5 X10*3/uL (4.8-10.8)
[2022-11-22 21:40] LABS: Alanine Aminotransferase 11 U/L (0-40); Albumin Level 4.3 g/dL (3.5-5.0); Alkaline Phosphatase 78 U/L (39-117); Anion Gap 15 (12-20); Aspartate Amino Transferase 14 U/L (5-37); Bilirubin Total 0.4 mg/dL (0.0-1.0); Blood Urea Nitrogen 18 mg/dL (9-16); Calcium 9.4 mg/dL (8.4-10.2); Carbon Dioxide 24 mmol/L (22-29); Chloride 105 mmol/L (96-108); Creatinine Clr Calc Pharmacy 84.7; Estimated Glomerular Filt Rate > 60; Glucose Random 116 mg/dL (60-115); Potassium 4.3 mmol/L (3.3-5.1); Sodium 140 mmol/L (135-145); Total Protein 6.9 g/dL (6.5-8.0)
--- NOTE | 2022-11-22 21:45 | PC.NURSE ---
PT A&Ox4, reports pressure and inability to void feeling very uncomfortable x 24 hours, denies any pain. Pt independent to beside commode. Bladder scan result >999 mL, provider notified, new order to place F/C. 18 F lakhani cath placed, draining clear, dark yellow urine, sample collected and sent to lab. Pt tolerated well, reports instant relief .
[2022-11-22 21:46] LABS: Appearance Urine Clear; Color Urine Yellow; Glucose Urine UA Negative (Negative); Leukocyte Esterase Urine Small (1+) (Negative); Nitrite Urine Negative (Negative); PH 6.5 (5.0-9.0); UMIC TRIGGER UACC YES; Urine Blood Small (1+) (Negative); Urine Ketones Trace mg/dL (Negative); Urine Protein 30 (1+) mg/dL (Neg-Trace)
[2022-11-22 21:51] LABS: Bacteria Urine None Seen (None Seen); Hyaline Casts Urine 0-2 /LPF (0-2); Squamous Epithelial Cell Urine 0-2 /HPF (0-2); UACC Culture Trigger YES; WBC Urine 21-50 /HPF (0-5)
[2022-11-22] MEDS: levoFLOXacin 750 MG TABLET PO (23:27)
[2022-11-22] MEDS: Tamsulosin HCL 0.4 MG CAPSULE PO (23:27)
[2022-11-22 23:28] VITALS: BP 128/80; PULSE 90; RESP 16; TEMP 37.2; O2SAT 98
--- NOTE | 2022-11-22 23:44 | PC.NURSE ---
Pt teaching done on how to change leg bag, demonstration and teach back, pt understood.
== END 2022-11-22 23:50 | disposition home or self-care (01) ==
PROVIDERS: Emergency Provider Emergency Medicine Emergency Medical Services; PCP General Practice
DX: R33.9 Retention of urine, unspecified (principal); N41.9 Inflammatory disease of prostate, unspecified
CPT/HCPCS: 36415; 80053; 81001; 85027; 87086; 99283; 99284; 99285

== ENCOUNTER 2023-05-08 23:57 | Inpatient (IN) | payer OTHER, SELFPAY ==
[2023-05-09 00:06] VITALS: BP 118/78; PULSE 80; RESP 20; TEMP 36.8; O2SAT 95; BMI 29.4
--- NOTE | 2023-05-09 00:13 | ECG_ITS ---
Test Reason : drug use Blood Pressure : / mmHG Vent. Rate : 078 BPM Atrial Rate : 078 BPM P-R Int : 160 ms QRS Dur : 102 ms QT Int : 392 ms P-R-T Axes : 044 008 024 degrees QTc Int : 446 ms Normal sinus rhythm Nonspecific T wave abnormality Abnormal ECG No previous ECGs available Referred By: Generic ED Physician Electronically Signed By:RAMANA ROBLES
--- NOTE | 2023-05-09 00:37 | ED_ITS ---
HPI - General Adult General Chief complaint: Psychiatric Symptoms Stated complaint: si and drug use Time Seen by Provider: 05/09/23 00:15 Source: patient, RN notes reviewed and old records reviewed Mode of arrival: EMS Limitations: no limitations History of Present Illness HPI narrative: Patient is a 63-year-old male presents for evaluation of cocaine abuse. Patient reports that he has been smoking crack cocaine since Tuesday. He reported to EMS staff that he was apparently suicidal. At the time of my evaluation he reports that he is not having any thoughts of harming himself or anybody else It was reported that he had taken unknown amount of trazodone prior to arrival Patient reports ?I took 2 or 3 pills. ? He reports that he is seeking help with cocaine abuse because ?I just need to stop. ? Patient reports chronic lower back pain and ?sciatica. ? He is able to ambulate with his walker Denies any change from baseline regarding his back pain He does not use IV drugs Related Data Home Medications Medication Instructions Recorded Confirmed acetaminophen 650 mg 1,300 mg PO BID PRN 11/12/20 12/30/20 tablet,extended release bupropion HCl (smoking deter) 150 150 mg PO BID 11/12/20 12/30/20 mg tablet,12 hr sustained-release(smoking deterrent) diclofenac sodium 1 % topical gel g topical 11/12/20 12/30/20 divalproex 250 mg tablet,delayed 250 mg PO BID 11/12/20 12/30/20 release atorvastatin 20 mg tablet 20 mg PO DAILY 01/02/21 ibuprofen 800 mg tablet 800 mg PO TID 01/02/21 sildenafil 50 mg tablet 50 mg PO DAILY PRN 01/02/21 Previous Rx's Medication Instructions Recorded tamsulosin 0.4 mg capsule 0.4 mg PO BEDTIME PRN Urinary 01/08/21 weakness 30 days #30 caps doxycycline hyclate 100 mg tablet 100 mg PO BID #20 tabs 03/12/22 ibuprofen 600 mg tablet 600 mg PO Q6H PRN pain #20 tabs 03/12/22 ciprofloxacin HCl 500 mg tablet 500 mg PO Q12H 10 days #20 tabs 11/22/22 (Cipro) tamsulosin 0.4 mg capsule (Flomax) 0.4 mg PO DAILY #30 caps 11/22/22 Allergies Allergy/AdvReac Type Severity Reaction Status Date / Time No Known Allergies Allergy Verified 07/07/22 14:31 [No Known Allergies*] Review of Systems 2 Constitutional: Constitutional: Denies chills, Denies fever(s) and Denies headache(s) Eyes: Eyes: Denies blurry vision ENT: Denies headache(s) Cardiovascular: Cardiovascular: Denies chest pain and Denies dyspnea Respiratory: Respiratory: Denies cough and Denies dyspnea Gastrointestinal: Gastrointestinal: Denies abdominal pain, Denies nausea and Denies vomiting Musculoskeletal: Musculoskeletal: Reports back pain (chronic) Integumentary/Breasts: Skin/Breast: Denies rash Neurologic: Denies headache(s) Psychiatric: Psychiatric: Reports suicidal ideation PMFSH Past Medical History Medical History Alcoholism in remission Benign prostatic hyperplasia with lower urinary tract symptoms Bipolar 1 disorder Cervical radiculopathy Chronic neck and back pain Drug addiction in remission History of adenomatous polyp of colon Social History Social History Household Members: None Alcohol intake: never Patient Tobacco Use Status: Current everyday Tobacco user Tobacco use type: Cigarette Cigarettes Per Day: 20 Years Smoked: 35 Smoked in Last 30 Days: Yes Use of substances other than those prescribed or required for medical reasons: Yes Substance Use Type: Crack/Cocaine Advance Directives: No Advance Directives Information Provided: No Healthcare Proxy: No Guardian: No Physical Exam ED Vital Signs: Vital Signs - 24 hr 05/09/23 00:06 05/09/23 00:53 05/09/23 03:50 Temperature 98.3 F 98.6 F Pulse Rate 80 84 81 Respiratory Rate 20 16 17 Blood Pressure 118/78 109/72 107/64 Pulse Oximetry 95 93 95 Oxygen Delivery Method Room Air Room Air Room Air 05/09/23 05:50 Temperature 99.1 F Pulse Rate 81 Respiratory Rate 20 Blood Pressure 111/63 Pulse Oximetry 93 Oxygen Delivery Method Room Air BMI result Body Mass Index 29.4 Const General: healthy appearing, comfortable, no acute distress, alert and awake Nutritional Appearance: well nourished Orientation/consciousness: patient oriented x3 HENMT Head: Yes normocephalic and Yes atraumatic Eyes Eyelids: Yes eyelids normal Conjunctivae: conjunctivae normal Sclerae: sclerae normal Corneas: corneas normal Pupils: Equal, round and reactive pupils present EOM: EOMs intact bilaterally Neck Neck: Yes full ROM Resp Effort & Inspection: normal respiratory effort, able to speak in complete sentences and not labored GI Inspection: No distended Skin General skin exam: elasticity normal Neuro General: patient oriented x3 Cranial nerves: Yes Equal, round and reactive pupils present and Yes Bilaterally intact EOM present Cognition (Neuro): normal cognition Extrem Other: Moving all extremities well without any obvious deformities Course Reevaluation(s) Reevaluation #1: And nursing staff discussed with poison control who recommended adding on a magnesium and phosphorus level. Also recommends giving magnesium a at were above 2 and potassium at above 4. The patient's potassium was 3.6, therefore he was given oral potassium Time: 01:28 Reevaluation #2: On both EKGs there are no issues, CPK is down trending, poison Control has cleared the patient and I am clearing the patient for further evaluation by the care team. Time: 06:28 Reevaluation #3: patient under physician observation, normal vital signs, no events overnight reported by nurses, still expressing suicidal ideation, bed search is underway patient is coming voluntary, continuous physician observation. Time: 12:42 Medications Administered Discontinued Medications Generic Name Dose Route Start Last Admin Trade Name Freq PRN Reason Stop Dose Admin Ceftriaxone Sodium 1 gm/ 50 mls @ 100 mls/hr 05/09/23 04:59 05/09/23 06:15 Sodium Chloride IV 05/09/23 05:28 Infused ONCE ONE Infusion Potassium Chloride 40 meq 05/09/23 01:27 05/09/23 01:32 Potassium Chloride Er 20 Meq Tab.Er.Prt PO 05/09/23 01:28 40 meq ONCE ONE Administration Medical Decision Making Medical Decision Making [facility] Narrative: 63-year-old male presents for evaluation of cocaine abuse and reported suicidal ideation. The patient denies suicidal ideation to me. Given the discrepancy in the story he will still be evaluate the care team once medically cleared. The patient reports that healing took 2 or 3 trazodone. Plan for labs, urine sample for medical clearance Differential Diagnosis Differential Diagnoses: The differential diagnosis associated with the presentation includes Depression Suicidal ideation Bipolar disorder Cocaine abuse Polysubstance abuse Lab Data 05/09/23 00:51 05/09/23 00:51 Labs: Lab Results 05/09/23 05/09/2305/09/23 Range/Units 00:51 00:51 00:51 WBC 10.5 (4.8-10.8) X10*3/uL RBC 5.36 (4.60-5.80) X10*6/uL Hgb 15.8 (14.0-18.0) g/dl Hct 46.2 (42.0-52.0) % MCV 86.2 (80.0-98.0) fL MCH 29.5 (27.0-33.0) pg MCHC 34.2 (31.0-36.0) g/dl RDW 13.5 (11.0-16.0) % Plt Count 284 (160-400) X10*3/uL MPV 8.6 L (9.4-12.4) fL Immature Gran % (Auto) 0.2 (0.0-0.4) % Neut % (Auto) 61.5 (45-73) % Lymph % (Auto) 21.3 (20-40) % Marshall % (Auto) 14.1 H (2-11) % Eos % (Auto) 2.4 (0-4) % Baso % (Auto) 0.5 (0-2) % Lymph # (Auto) 2.2 (1.2-4.9) X10*3/uL Marshall # (Auto) 1.5 H (0.1-1.2) X10*3/uL Eos # (Auto) 0.3 (0.0-0.4) X10*3/uL Baso # (Auto) 0.1 (0.0-0.2) X10*3/uL Abs Immat Gran (auto) 0.02 (0.00-0.03) X10*3/uL Absolute Neuts (auto) 6.5 (2.0-8.3) x10*3/uL Absolute Nucleated RBC 0.000 (0.0-0.012) X10*3/uL Nucleated RBC % (auto) 0.0 (0.0-0.2) /100WBC PT (11.1-13.3) SEC INR (0.9-1.1) Sodium 140 (135-145) mmol/L Potassium 3.6 (3.3-5.1) mmol/L Chloride 106 (96-108) mmol/L Carbon Dioxide 26 (22-29) mmol/L Anion Gap 12 (12-20) BUN 16 (9-16) mg/dL Creatinine 0.87 (0.5-1.4) mg/dL Estim Creat Clear Calc 89.9 Estimated GFR > 60 Random Glucose 123 H (60-115) mg/dL Calcium 9.5 (8.4-10.2) mg/dL Phosphorus 4.1 (2.7-4.5) mg/dL Magnesium 2.1 (1.6-2.6) mg/dL Total Bilirubin 0.8 (0.0-1.0) mg/dL AST 24 (5-37) U/L ALT 18 (0-40) U/L Alkaline Phosphatase 58 (39-117) U/L Total Creatine Kinase 676 H (38-174) U/L Troponin I High Sens (<3.5-35.0) ng/L Total Protein 6.4 L (6.5-8.0) g/dL Albumin 4.1 (3.5-5.0) g/dL Urine Color Urine Appearance Urine pH (5.0-9.0) Ur Specific Moriarty (1.005-1.025) Urine Protein (Neg-Trace) mg/dL Urine Glucose (UA) (Negative) mg/dL Urine Ketones (Negative) mg/dL Urine Blood (Negative) Urine Nitrite (Negative) Ur Leukocyte Esterase (Negative) Urine RBC (0-2) /HPF Urine WBC (0-5) /HPF Ur Squamous Epith Cells (0-2) /HPF Urine Bacteria (None Seen) Hyaline Casts (0-2) /LPF Salicylates < 5.0 L (15-30) mg/dL Urine Opiates Screen (Not Detect) Urine Fentanyl Screen (Not Detect) Acetaminophen < 17 (<30) mcg/mL Ur Barbiturates Screen (Not Detect) Ur Phencyclidine Scrn (Not Detect) Ur Amphetamines Screen (Not Detect) U Benzodiazepines Scrn (Not Detect) Urine Cocaine Screen (Not Detect) U Marijuana (THC) Screen (Not Detect) Ethyl Alcohol mg/dL 05/09/23 05/09/23 05/09/23 Range/Units 00:51 00:51 00:51 WBC (4.8-10.8) X10*3/uL RBC (4.60-5.80) X10*6/uL Hgb (14.0-18.0) g/dl Hct (42.0-52.0) % MCV (80.0-98.0) fL MCH (27.0-33.0) pg MCHC (31.0-36.0) g/dl RDW (11.0-16.0) % Plt Count (160-400) X10*3/uL MPV (9.4-12.4) fL Immature Gran % (Auto) (0.0-0.4) % Neut % (Auto) (45-73) % Lymph % (Auto) (20-40) % Marshall % (Auto) (2-11) % Eos % (Auto) (0-4) % Baso % (Auto) (0-2) % Lymph # (Auto) (1.2-4.9) X10*3/uL Marshall # (Auto) (0.1-1.2) X10*3/uL Eos # (Auto) (0.0-0.4) X10*3/uL Baso # (Auto) (0.0-0.2) X10*3/uL Abs Immat Gran (auto) (0.00-0.03) X10*3/uL Absolute Neuts (auto) (2.0-8.3) x10*3/uL Absolute Nucleated RBC (0.0-0.012) X10*3/uL Nucleated RBC % (auto) (0.0-0.2) /100WBC PT 12.5 (11.1-13.3) SEC INR 1.0 (0.9-1.1) Sodium (135-145) mmol/L Potassium (3.3-5.1) mmol/L Chloride (96-108) mmol/L Carbon Dioxide (22-29) mmol/L Anion Gap (12-20) BUN (9-16) mg/dL Creatinine (0.5-1.4) mg/dL Estim Creat Clear Calc Estimated GFR Random Glucose (60-115) mg/dL Calcium (8.4-10.2) mg/dL Phosphorus (2.7-4.5) mg/dL Magnesium (1.6-2.6) mg/dL Total Bilirubin (0.0-1.0) mg/dL AST (5-37) U/L ALT (0-40) U/L Alkaline Phosphatase (39-117) U/L Total Creatine Kinase (38-174) U/L Troponin I High Sens < 2.7 (<3.5-35.0) ng/L Total Protein (6.5-8.0) g/dL Albumin (3.5-5.0) g/dL Urine Color Urine Appearance Urine pH (5.0-9.0) Ur Specific Moriarty (1.005-1.025) Urine Protein (Neg-Trace) mg/dL Urine Glucose (UA) (Negative) mg/dL Urine Ketones (Negative) mg/dL Urine Blood (Negative) Urine Nitrite (Negative) Ur Leukocyte Esterase (Negative) Urine RBC (0-2) /HPF Urine WBC (0-5) /HPF Ur Squamous Epith Cells (0-2) /HPF Urine Bacteria (None Seen) Hyaline Casts (0-2) /LPF Salicylates (15-30) mg/dL Urine Opiates Screen (Not Detect) Urine Fentanyl Screen (Not Detect) Acetaminophen (<30) mcg/mL Ur Barbiturates Screen (Not Detect) Ur Phencyclidine Scrn (Not Detect) Ur Amphetamines Screen (Not Detect) U Benzodiazepines Scrn (Not Detect) Urine Cocaine Screen (Not Detect) U Marijuana (THC) Screen (Not Detect) Ethyl Alcohol < 10 mg/dL 05/09/23 05/09/23 05/09/23 Range/Units 04:35 04:35 06:04 WBC (4.8-10.8) X10*3/uL RBC (4.60-5.80) X10*6/uL Hgb (14.0-18.0) g/dl Hct (42.0-52.0) % MCV (80.0-98.0) fL MCH (27.0-33.0) pg MCHC (31.0-36.0) g/dl RDW (11.0-16.0) % Plt Count (160-400) X10*3/uL MPV (9.4-12.4) fL Immature Gran % (Auto) (0.0-0.4) % Neut % (Auto) (45-73) % Lymph % (Auto) (20-40) % Marshall % (Auto) (2-11) % Eos % (Auto) (0-4) % Baso % (Auto) (0-2) % Lymph # (Auto) (1.2-4.9) X10*3/uL Marshall # (Auto) (0.1-1.2) X10*3/uL Eos # (Auto) (0.0-0.4) X10*3/uL Baso # (Auto) (0.0-0.2) X10*3/uL Abs Immat Gran (auto) (0.00-0.03) X10*3/uL Absolute Neuts (auto) (2.0-8.3) x10*3/uL Absolute Nucleated RBC (0.0-0.012) X10*3/uL Nucleated RBC % (auto) (0.0-0.2) /100WBC PT (11.1-13.3) SEC INR (0.9-1.1) Sodium (135-145) mmol/L Potassium (3.3-5.1) mmol/L Chloride (96-108) mmol/L Carbon Dioxide (22-29) mmol/L Anion Gap (12-20) BUN (9-16) mg/dL Creatinine (0.5-1.4) mg/dL Estim Creat Clear Calc Estimated GFR Random Glucose (60-115) mg/dL Calcium (8.4-10.2) mg/dL Phosphorus (2.7-4.5) mg/dL Magnesium (1.6-2.6) mg/dL Total Bilirubin (0.0-1.0) mg/dL AST (5-37) U/L ALT (0-40) U/L Alkaline Phosphatase (39-117) U/L Total Creatine Kinase 537 H (38-174) U/L Troponin I High Sens (<3.5-35.0) ng/L Total Protein (6.5-8.0) g/dL Albumin (3.5-5.0) g/dL Urine Color Yellow Urine Appearance Clear Urine pH 6.0 (5.0-9.0) Ur Specific Moriarty 1.010 (1.005-1.025) Urine Protein Trace (Neg-Trace) mg/dL Urine Glucose (UA) Negative (Negative) mg/dL Urine Ketones Negative (Negative) mg/dL Urine Blood Moderate (2+) H (Negative) Urine Nitrite Positive H (Negative) Ur Leukocyte Esterase Small (1+) H (Negative) Urine RBC 11-20 H (0-2) /HPF Urine WBC 21-50 H (0-5) /HPF Ur Squamous Epith Cells 0-2 (0-2) /HPF Urine Bacteria Trace (None Seen) Hyaline Casts 0-2 (0-2) /LPF Salicylates (15-30) mg/dL Urine Opiates Screen Not Detected (Not Detect) Urine Fentanyl Screen Not Detected (Not Detect) Acetaminophen (<30) mcg/mL Ur Barbiturates Screen Not Detected (Not Detect) Ur Phencyclidine Scrn Not Detected (Not Detect) Ur Amphetamines Screen Not Detected (Not Detect) U Benzodiazepines Scrn Not Detected (Not Detect) Urine Cocaine Screen POSITIVE H (Not Detect) U Marijuana (THC) Screen Not Detected (Not Detect) Ethyl Alcohol mg/dL Discharge Plan Discharge Clinical Impression: Cocaine abuse, Depression, Suicide attempt, Acute UTI Patient Disposition: Still a Patient Prescriptions: No Action tamsulosin 0.4 mg capsule 0.4 mg PO BEDTIME PRN (Reason: Urinary weakness) 30 Days Qty: 30 6RF ciprofloxacin HCl [Cipro] 500 mg tablet 500 mg PO Q12H 10 Days Qty: 20 0RF tamsulosin [Flomax] 0.4 mg capsule 0.4 mg PO DAILY Qty: 30 0RF ibuprofen 600 mg tablet 600 mg PO Q6H PRN (Reason: pain) Qty: 20 0RF doxycycline hyclate 100 mg tablet 100 mg PO BID Qty: 20 0RF acetaminophen 650 mg tablet extended release 1,300 mg PO BID PRN divalproex 250 mg tablet,delayed release (DR/EC) 250 mg PO BID diclofenac sodium 1 % gel topical bupropion HCl (smoking deter) 150 mg tablet extended release 12 hr 150 mg PO BID ibuprofen 800 mg tablet 800 mg PO TID sildenafil 50 mg tablet 50 mg PO DAILY PRN atorvastatin 20 mg tablet 20 mg PO DAILY Interventions: [place]-Suicide Risk Severity Scale Last Done: 05/09/23 05:56
[2023-05-09 00:53] VITALS: BP 109/72; PULSE 84; RESP 16; TEMP 37; O2SAT 93
[2023-05-09 00:58] LABS: Basophils Absolute Auto 0.1 X10*3/uL (0.0-0.2); Basophils Percent Auto 0.5 % (0-2); Eosinophils Absolute Auto 0.3 X10*3/uL (0.0-0.4); Eosinophils Percent Auto 2.4 % (0-4); Hematocrit 46.2 % (42.0-52.0); Hemoglobin 15.8 g/dl (14.0-18.0); Imm Gran Abs Auto 0.02 X10*3/uL (0.00-0.03); Imm Gran Pct Auto 0.2 % (0.0-0.4); Lymphocytes Absolute Auto 2.2 X10*3/uL (1.2-4.9); Lymphocytes Percent Auto 21.3 % (20-40); MANUAL DIFF FLAG NO; Mean Corpuscular HGB Conc 34.2 g/dl (31.0-36.0); Mean Corpuscular Hemoglobin 29.5 pg (27.0-33.0); Mean Corpuscular Volume 86.2 fL (80.0-98.0); Mean Platelet Volume 8.6 fL (9.4-12.4); Monocytes Absolute Auto 1.5 X10*3/uL (0.1-1.2); Monocytes Percent Auto 14.1 % (2-11); Neutrophils Absolute Auto 6.5 x10*3/uL (2.0-8.3); Neutrophils Percent Auto 61.5 % (45-73); Platelet Count 284 X10*3/uL (160-400); Red Blood Count 5.36 X10*6/uL (4.60-5.80); Red Cell Distribution Width 13.5 % (11.0-16.0); White Blood Count 10.5 X10*3/uL (4.8-10.8)
[2023-05-09 01:03] LABS: Prothrombin Time 12.5 SEC (11.1-13.3)
[2023-05-09 01:14] LABS: Alanine Aminotransferase 18 U/L (0-40); Albumin Level 4.1 g/dL (3.5-5.0); Alkaline Phosphatase 58 U/L (39-117); Anion Gap 12 (12-20); Aspartate Amino Transferase 24 U/L (5-37); Bilirubin Total 0.8 mg/dL (0.0-1.0); Blood Urea Nitrogen 16 mg/dL (9-16); Calcium 9.5 mg/dL (8.4-10.2); Carbon Dioxide 26 mmol/L (22-29); Chloride 106 mmol/L (96-108); Creatinine Clr Calc Pharmacy 89.9; Estimated Glomerular Filt Rate > 60; Glucose Random 123 mg/dL (60-115); Potassium 3.6 mmol/L (3.3-5.1); Sodium 140 mmol/L (135-145); Total Protein 6.4 g/dL (6.5-8.0)
[2023-05-09 01:15] LABS: Acetaminophen LAB < 17 mcg/mL (<30); Ethanol < 10 mg/dL; Salicylate < 5.0 mg/dL (15-30)
[2023-05-09 01:24] LABS: Troponin-I High Sensitivity < 2.7 ng/L (<3.5-35.0)
--- NOTE | 2023-05-09 01:27 | PC.NURSE ---
this rn contacted poison control center regarding pt to start new case per poison control staff. recommendations include, add magnesium and CPK levels. potassium should be maintained at 4.0 supplement if under 4.0. if magnesium under 2.0 supplement. supportive care should be followed this rn made ivan lee aware of poison control recommendations. awaiting orders at this time
[2023-05-09] MEDS: Potassium Chloride ER 20 MEQ TAB.ER.PRT 40 MEQ PO (01:32)
[2023-05-09 02:06] LABS: Magnesium 2.1 mg/dL (1.6-2.6); Phosphorus 4.1 mg/dL (2.7-4.5)
--- NOTE | 2023-05-09 03:46 | PC.NURSE ---
1: [address] lights dimmed awaiting for pt to provide urine sample
[2023-05-09 03:50] VITALS: BP 107/64; PULSE 81; RESP 17; O2SAT 95
--- NOTE | 2023-05-09 04:15 | ECG_ITS ---
Test Reason : DRUG USE - REPEAT EKG Blood Pressure : / mmHG Vent. Rate : 079 BPM Atrial Rate : 079 BPM P-R Int : 156 ms QRS Dur : 102 ms QT Int : 390 ms P-R-T Axes : 063 019 045 degrees QTc Int : 447 ms Normal sinus rhythm Normal ECG When compared with ECG of 09-MAY-2023 00:15, No significant change was found Referred By: Cristin Chatman Electronically Signed By:RAMANA ROBLES
[2023-05-09 04:41] LABS: Appearance Urine Clear; Color Urine Yellow; Glucose Urine UA Negative (Negative); Leukocyte Esterase Urine Small (1+) (Negative); Nitrite Urine Positive (Negative); UMIC TRIGGER UACC YES; Urine Blood Moderate (2+) (Negative); Urine Ketones Negative (Negative); Urine Protein Trace mg/dL (Neg-Trace)
[2023-05-09 04:46] LABS: Bacteria Urine Trace (None Seen); Hyaline Casts Urine 0-2 /LPF (0-2); Squamous Epithelial Cell Urine 0-2 /HPF (0-2); UACC Culture Trigger YES; WBC Urine 21-50 /HPF (0-5)
[2023-05-09 04:55] LABS: Amphetamine Screen Urine Not Detected (Not Detect); Barbiturates, Urine Not Detected (Not Detect); Benzodiazepines Screen Urine Not Detected (Not Detect); Cannabinoid Screen Urine Not Detected (Not Detect); Cocaine Screen Urine POSITIVE (Not Detect); Fentanyl, urine Not Detected (Not Detect); Opiate Screen Urine Not Detected (Not Detect); Phencyclidine Screen Urine Not Detected (Not Detect)
[2023-05-09] MEDS: cefTRIAXone sodium 1 GM in 0.9 % Sodium Chloride 50 ML IV (05:28)
--- NOTE | 2023-05-09 05:37 | PC.NURSE ---
repeat ekg done per poison control this rn contacted poison control with results from ekg. per poison control staff repeat cpk NOW and pt should be awake for pt to be considered medically cleared by poison control this rn made dr dominique aware of poison control recomendations
--- NOTE | 2023-05-09 05:39 | PC.NURSE ---
per dr dominique pt to get iv antibiotics does not need blood cultures prior pt medicated according to lokesh
[2023-05-09 05:50] VITALS: BP 111/63; PULSE 81; RESP 20; TEMP 37.3; O2SAT 93
--- NOTE | 2023-05-09 05:51 | MHC.EDTECH ---
Patient was using urinal and it spilled a bit so I replaced all the bed linens. He sat on the side of the bed and stood for 2-3 seconds with 1 assist, very unsteady and wobbled so patient was directed to sit back on the side of the bed, which he did with no problems.
--- NOTE | 2023-05-09 06:41 | PC.NURSE ---
late entry- per poison control pt okay to be medically cleared if CPK is trending down. per dr dominique pt cleared for pod. pt able to tolerate po liquids and food. pt ambulatory with walker as baseline iv removed prior to transfer to pod
--- NOTE | 2023-05-09 07:13 | PC.NURSE ---
Resumed care of patient this AM, they are currently resting, safety measures in place, Q15 min checks maintained. Awaiting care team consult at this time
--- NOTE | 2023-05-09 08:02 | PC.NURSE ---
Care team at bedside with patient, pt reporting he was having leg cramps, pt making groaning noises. Care team attempting to do their assessment, and pt not fully answering questions. Staff asked patient multiple times if he wanted her to come back, pt kept saying no, but did not want to fully participate in conversation.
--- NOTE | 2023-05-09 08:10 | MHC.CARE ---
care team attempted to meet with patient. He appears to be unable to engage at this point. intermittently falling asleep, possibly responding to internal stimuli. Bizarre affect. Reports nonstop use of crack since Tuesday and also states he maybe attempted suicide on trazodone but states he got too tired. Plan to have patient sleep for another hour or so and attempt assessment again. Alluded to wanting breakfast and asked when we were going to [employer].
--- NOTE | 2023-05-09 09:56 | PC.NURSE ---
Pt started yelling out, and rolling around in the bed, this RN to bedside to assess patient where he reported having a charley horse, and just needed to sit up. Pt would not fully open eyes, and was not speaking full sentences and words to respond to RN questions. Pt then got up to go to BR, he was unsure of how to use walker, staff assist. Pt in bathroom, making uncomprehendable sounds, reporting to staff he is okay at this time.
--- NOTE | 2023-05-09 11:59 | MHC.CARE ---
at this time, given patient making suicidal statements and inconsistent / avoidant reporting around mental health sx and the intent of his over ingestion of trazodone (to sleep or to attempt suicide) he will be admitted inpatient psych for safety, further observation.
[2023-05-09 14:14] VITALS: BP 121/69; PULSE 83; RESP 18; TEMP 36.1; O2SAT 99
--- NOTE | 2023-05-09 15:10 | PC.NURSE ---
assumed care of patient at 1500, patient resting on bed at this time, respirations even and unlabored, skin pwd, no apparent distress. Continue plan of care for inpt admission
[2023-05-09 16:08] LABS: COVID-19 Test Negative (Negative); IDNOW Serial# BCCEAD1C
--- NOTE | 2023-05-09 18:41 | PC.NURSE ---
report given to DAVID Finley on M5
[2023-05-09] MEDS: traZODone HCL 50 MG TABLET PO (22:18)
[2023-05-09] MEDS: Nicotine Polacrilex 2 MG GUM 4 MG BUCCAL (22:19)
[2023-05-09] MEDS: Acetaminophen 325 MG TABLET 650 MG PO (22:19)
[2023-05-09] MEDS: Nitrofurantoin Monohyd/M-Cryst 100 MG CAPSULE PO (22:19)
[2023-05-09] MEDS: Tamsulosin HCL 0.4 MG CAPSULE PO (22:19)
--- NOTE | 2023-05-09 22:34 | PC.ADMIT ---
PT is a 63 year old Indonesian speaking male that arrived on this unit at 20:00 from the [facility] and was placed on 5 minute safety checks due to equipment (walker to assist with ambulation). PT was BIBA after an unknown person called EMS due to pt ingesting more than prescribed Trazodone. PT reports to this sports book writer that he was smoking excessive amounts of crack cocaine since Tuesday and took like 3 Trazodone in an attempt to end his life. PT alludes to someone wanting to kill him and he felt his only choice was to commit suicide. PT's thought process is disorganized and speech is tangential. It is unclear if this is delusional in nature. PT reports a chronic longstanding hx of crack cocaine use and a pattern of spending all of his money on drugs when he is paid and then leaving himself with no money for the rest of the month. PT also reports frequently being indebted to dealers and feels hopeless to stop this cycle. PT frequently alludes to being afraid for his life throughout the entirety of admissions process but does not elaborate. PT reports one prior psych admission about 20 years ago. PT reports having adult children with whom he has strained relationships with and a support system is lacking. PT reports a positive relationship with his providers at [facility]. When asked about goals for discharge pt states I need to get out of here. Maybe out to [place]? I need to be kept safe . TOX + for cocaine, COVID neg, labs did show a UTI and PT is being treated with Macrobid. PT is a current someday smoker and is interested in Nicotine replacement. PT agrees to the annual FLU vaccine. PT denies current SI/HI, AH/VH. VS stable. Currently resting, in no apparent distress. Admission orders obtained, tx plan completed. Safety tool still needs to be completed. Will continue to monitor.
[2023-05-10] MEDS: OLANZapine 5 MG TABLET PO (02:41)
[2023-05-10] MEDS: traZODone HCL 50 MG TABLET PO ×2 (02:41→20:47)
[2023-05-10 08:34] LABS: Estimated Average Glucose 111 mg/dL; Hemoglobin A1C 149.6703 umol/L; Hemoglobin A1c % 5.5 % (<6.0)
[2023-05-10 08:41] LABS: Alanine Aminotransferase 17 U/L (0-40); Albumin Level 3.9 g/dL (3.5-5.0); Alkaline Phosphatase 57 U/L (39-117); Anion Gap 12 (12-20); Aspartate Amino Transferase 17 U/L (5-37); Bilirubin Total 0.2 mg/dL (0.0-1.0); Blood Urea Nitrogen 17 mg/dL (9-16); Calcium 9.5 mg/dL (8.4-10.2); Carbon Dioxide 27 mmol/L (22-29); Chloride 106 mmol/L (96-108); Cholesterol 152 mg/dL (<200); Creatinine Clr Calc Pharmacy 95.4; Estimated Glomerular Filt Rate > 60; Glucose Fasting 123 mg/dL (60-99); HDL Cholesterol 41 mg/dL (>40); LDL Cholesterol Calculated 82 mg/dL (<100); Potassium 3.8 mmol/L (3.3-5.1); Sodium 141 mmol/L (135-145); Total Protein 6.4 g/dL (6.5-8.0); Triglycerides 146 mg/dL (<150)
[2023-05-10 09:06] VITALS: BP 117/69; PULSE 74; RESP 16; TEMP 37.1; O2SAT 97
[2023-05-10] MEDS: bisacodyL 5 MG TABLET.DR PO (09:09)
[2023-05-10] MEDS: Tamsulosin HCL 0.4 MG CAPSULE PO (09:09)
[2023-05-10] MEDS: Nitrofurantoin Monohyd/M-Cryst 100 MG CAPSULE PO ×2 (09:10→20:47)
--- NOTE | 2023-05-10 16:34 | HO.PSYADMNOT ---
HPI Date of Service: 05/10/23 Chief Complaint: Bipolar Disorder, Cocaine Use Disorder Sources of Information: patient interviewed, chart reviewed and crisis/core team assessment reviewed HPI Subjective Notes: Ayala Warning and Conditional Voluntary Healthcare Proxy: No Guardianship: No Medical Problems Affecting Mental Status: No Narrative: 63 yo male, history of bipolar disorder, cocaine use disorder to ER via EMS he believes due to binge cocaine use and overuse of Trazodone to assist with sleep and possibly as a suicide attempt. Pt reports a long history of addiction, beginning AA for alcohol dependence in 1991 and crack in the s. He reports he had stopped, however after graduating from [employer] in 2019 with AD in chemistry and environmental science he impulsively returned to use/relapse after partner left him. Today, he is somewhat tangential, and needed to be interviewed while resting in bed. He is scattered in history, however, does give this message. He currently believes that he needs to leave the area as he owes money to peers and believes his safety may be at risk. He discussed CSS and encouraged tw to make contact with [facility] Kareem Shaffer (therapist), he will tell you what I need to do. I need to get away from this stuff . Pt also reports a history of bipolar disorder, type I with history of coby and current noncompliance with Valproate. Past Psychiatric History: Medication trials: Wellbutrin, Depakote, trazodone, took others, but does not recall the names. PHP in early . Has therapist, recently met with a psych prescriber through [facility], does not recall name. No IP hx PHP Oct 2022 [facility] [place] Medical Evaluation Reviewed: Yes [facility] Medical History Alcoholism in remission Benign prostatic hyperplasia with lower urinary tract symptoms Bipolar 1 disorder Cervical radiculopathy Chronic neck and back pain Drug addiction in remission History of adenomatous polyp of colon Family History: Mother: Depression/anxiety Social History: Born and raised in [place] [facility] [facility] [place], 1 sister, 1 brother. 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 Two daughters 1 son. History of homelessness. Currently living in subsidized housing, would like to move to a safer neighborhood. 2019 graduate [employer] in chemistry and environmental sciences- AD Substance History: Alcohol-sober Cocaine-since Cannabis Nicotine Trauma History: Reports trauma history, no details provided Diagnostics Vital Signs (24Hr): Vital Signs - 24 hr 05/10/23 09:06 Temperature 98.7 F Pulse Rate 74 Respiratory Rate 16 Blood Pressure 117/69 Pulse Oximetry 97 Oxygen Delivery Method Room Air BMI result Body Mass Index 29.4 Labs 05/09/23 00:51 05/10/23 08:01 Labs: Laboratory Results - last 48 hr 05/09/23 05/09/23 05/09/23 00:51 00:51 00:51 WBC 10.5 RBC 5.36 Hgb 15.8 Hct 46.2 MCV 86.2 MCH 29.5 MCHC 34.2 RDW 13.5 Plt Count 284 MPV 8.6 L Immature Gran % (Auto) 0.2 Neut % (Auto) 61.5 Lymph % (Auto) 21.3 [place] % (Auto) 14.1 H Eos % (Auto) 2.4 Baso % (Auto) 0.5 Lymph # (Auto) 2.2 [place] # (Auto) 1.5 H Eos # (Auto) 0.3 Baso # (Auto) 0.1 Abs Immat Gran (auto) 0.02 Absolute Neuts (auto) 6.5 Absolute Nucleated RBC 0.000 Nucleated RBC % (auto) 0.0 PT INR Sodium 140 Potassium 3.6 Chloride 106 Carbon Dioxide 26 Anion Gap 12 BUN 16 Creatinine 0.87 Estim Creat Clear Calc 89.9 Estimated GFR > 60 Random Glucose 123 H Fasting Glucose Estimat Average Glucose Hemoglobin A1c % Calcium 9.5 Phosphorus 4.1 Magnesium 2.1 Total Bilirubin 0.8 AST 24 ALT 18 Alkaline Phosphatase 58 Total Creatine Kinase 676 H Troponin I High Sens Total Protein 6.4 L Albumin 4.1 Triglycerides Cholesterol LDL Cholesterol, Calc HDL Cholesterol Urine Color Urine Appearance Urine pH Ur Specific Lott Urine Protein Urine Glucose (UA) Urine Ketones Urine Blood Urine Nitrite Ur Leukocyte Esterase Urine RBC Urine WBC Ur Squamous Epith Cells Urine Bacteria Hyaline Casts Salicylates < 5.0 L Urine Opiates Screen Urine Fentanyl Screen Acetaminophen < 17 Ur Barbiturates Screen Ur Phencyclidine Scrn Ur Amphetamines Screen U Benzodiazepines Scrn Urine Cocaine Screen U Marijuana (THC) Screen Ethyl Alcohol COVID-19 ([facility]) COVID-19 Clin Com 05/09/23 05/09/2305/09/23 00:51 00:51 00:51 WBC RBC Hgb Hct MCV MCH MCHC RDW Plt Count MPV Immature Gran % (Auto) Neut % (Auto) Lymph % (Auto) Marinette % (Auto) Eos % (Auto) Baso % (Auto) Lymph # (Auto) [place] # (Auto) Eos # (Auto) Baso # (Auto) Abs Immat Gran (auto) Absolute Neuts (auto) Absolute Nucleated RBC Nucleated RBC % (auto) PT 12.5 INR 1.0 Sodium Potassium Chloride Carbon Dioxide Anion Gap BUN Creatinine Estim Creat Clear Calc Estimated GFR Random Glucose Fasting Glucose Estimat Average Glucose Hemoglobin A1c % Calcium Phosphorus Magnesium Total Bilirubin AST ALT Alkaline Phosphatase Total Creatine Kinase Troponin I High Sens < 2.7 Total Protein Albumin Triglycerides Cholesterol LDL Cholesterol, Calc HDL Cholesterol Urine Color Urine Appearance Urine pH Ur Specific Lott Urine Protein Urine Glucose (UA) Urine Ketones Urine Blood Urine Nitrite Ur Leukocyte Esterase Urine RBC Urine WBC Ur Squamous Epith Cells Urine Bacteria Hyaline Casts Salicylates Urine Opiates Screen Urine Fentanyl Screen Acetaminophen Ur Barbiturates Screen Ur Phencyclidine Scrn Ur Amphetamines Screen U Benzodiazepines Scrn Urine Cocaine Screen U Marijuana (THC) Screen Ethyl Alcohol < 10 COVID-19 (BREONNA) COVID-19 Clin Com 05/09/23 05/09/23 05/09/23 04:35 04:35 06:04 WBC RBC Hgb Hct MCV MCH MCHC RDW Plt Count MPV Immature Gran % (Auto) Neut % (Auto) Lymph % (Auto) Marinette % (Auto) Eos % (Auto) Baso % (Auto) Lymph # (Auto) Marinette # (Auto) Eos # (Auto) Baso # (Auto) Abs Immat Gran (auto) Absolute Neuts (auto) Absolute Nucleated RBC Nucleated RBC % (auto) PT INR Sodium Potassium Chloride Carbon Dioxide Anion Gap BUN Creatinine Estim Creat Clear Calc Estimated GFR Random Glucose Fasting Glucose Estimat Average Glucose Hemoglobin A1c % Calcium Phosphorus Magnesium Total Bilirubin AST ALT Alkaline Phosphatase Total Creatine Kinase 537 H Troponin I High Sens Total Protein Albumin Triglycerides Cholesterol LDL Cholesterol, Calc HDL Cholesterol Urine Color Yellow Urine Appearance Clear Urine pH 6.0 Ur Specific Lott 1.010 Urine Protein Trace Urine Glucose (UA) Negative Urine Ketones Negative Urine Blood Moderate (2+) H Urine Nitrite Positive H Ur Leukocyte Esterase Small (1+) H Urine RBC 11-20 H Urine WBC 21-50 H Ur Squamous Epith Cells 0-2 Urine Bacteria Trace Hyaline Casts 0-2 Salicylates Urine Opiates Screen Not Detected Urine Fentanyl Screen Not Detected Acetaminophen Ur Barbiturates Screen Not Detected Ur Phencyclidine Scrn Not Detected Ur Amphetamines Screen Not Detected U Benzodiazepines Scrn Not Detected Urine Cocaine Screen POSITIVE H U Marijuana (THC) Screen Not Detected Ethyl Alcohol COVID-19 (BREONNA) COVID-19 Clin Com 05/09/23 05/10/23 05/10/23 15:50 08:01 08:01 WBC RBC Hgb Hct MCV MCH MCHC RDW Plt Count MPV Immature Gran % (Auto) Neut % (Auto) Lymph % (Auto) Marinette % (Auto) Eos % (Auto) Baso % (Auto) Lymph # (Auto) [place] # (Auto) Eos # (Auto) Baso # (Auto) Abs Immat Gran (auto) Absolute Neuts (auto) Absolute Nucleated RBC Nucleated RBC % (auto) PT INR Sodium 141 Potassium 3.8 Chloride 106 Carbon Dioxide 27 Anion Gap 12 BUN 17 H Creatinine 0.82 Estim Creat Clear Calc 95.4 Estimated GFR > 60 Random Glucose Fasting Glucose 123 H Estimat Average Glucose 111 Hemoglobin A1c % 5.5 Calcium 9.5 Phosphorus Magnesium Total Bilirubin 0.2 AST 17 ALT 17 Alkaline Phosphatase 57 Total Creatine Kinase 339 H Troponin I High Sens Total Protein 6.4 L Albumin 3.9 Triglycerides 146 Cholesterol 152 LDL Cholesterol, Calc 82 HDL Cholesterol 41 Urine Color Urine Appearance Urine pH Ur Specific Lott Urine Protein Urine Glucose (UA) Urine Ketones Urine Blood Urine Nitrite Ur Leukocyte Esterase Urine RBC Urine WBC Ur Squamous Epith Cells Urine Bacteria Hyaline Casts Salicylates Urine Opiates Screen Urine Fentanyl Screen Acetaminophen Ur Barbiturates Screen Ur Phencyclidine Scrn Ur Amphetamines Screen U Benzodiazepines Scrn Urine Cocaine Screen U Marijuana (THC) Screen Ethyl Alcohol COVID-19 (BREONNA) Negative COVID-19 Clin Com See Note EKG EKG Comment: 05/09- NSR QTc 447, rate 79 Meds/Allergies Meds Home Medications Medication Instructions Recorded Confirmed Type sildenafil 50 mg tablet 50 mg PO DAILY PRN Sexual Activity 01/02/21 05/09/23 History bisacodyl 5 mg tablet,delayed 5 mg PO DAILY 05/09/23 05/09/23 History release trazodone 100 mg tablet 100 mg PO BEDTIME 05/09/23 05/09/23 History Allergies Allergies Allergy/AdvReac Type Severity Reaction Status Date / Time No Known Allergies Allergy Verified 05/09/23 18:22 [No Known Allergies*] Mental Status Exam Mental Status Exam Patient Appearance: Fatigued Patient Orientation: Person, Place and Situation Level of Consciousness: Alert Patient Behavior: Talkative, Anxious, Fearful, Fatigued, Distractible, Confused and Good Eye Contact Mood Description: Anxious and Apprehensive Affect Description: Anxious and Apprehensive Patient Cognition Impaired: Yes Ability to Follow Directions: Fair Speech Pattern: Spontaneous Speech Memory Description: Episodic Impaired Hallucinations: None Delusions: Paranoid Ideation and Present Perceptual Disturbances: Derealization Thought Process: Distracted, Rumination and Confusion Thought Content: positive for Flight of Ideas, positive for Circumstantial, positive for Perseveration, positive for Tangential and positive for Suicidal Ideation Depressive Symptoms: Increased Anxiety, Diff. Making Decisions, Difficulty Sleeping, Feelings of Worthlessness, Hopelessness, Isolating-Friends/Family, Feelings of Guilt, Unhappiness, Increased Fatigue, Thoughts of /Suicide, Low Self Esteem, Loss of Energy and Difficulty Concentrating Judgement: Poor Assessment & Plan Assessment & Plan (1) Bipolar 1 disorder, depressed, moderate: Status: Acute Code(s): F31.32 - Bipolar disorder, current episode depressed, moderate (2) Cocaine dependence, uncomplicated: Status: Acute Code(s): F14.20 - Cocaine dependence, uncomplicated Plan 63 yo male, history of bipolar I disorder with coby, cocaine use disorder. To ER due to binge use of cocaine and overuse of Trazodone in an attempt to sleep/suicide attempt. Plan: Restart Depakote ER 500 mg HS MVI/Folic Acid B12,Folate, TSH, A1C Collateral contact Discharge planning-pt looking for a program out of the local area. Patient educated on: therapeutic strategies Informed Consent: understands and further education needed Reason for continued inpatient stay Substantial Risk for: rapid decompensation Statement Statement: I have reviewed the history and physical and performed a pertinent examination on my patient. No changes have occurred unless specified. If the History and Physical was not performed prior to admission, the Hospitalist's service will be consulted for completing the admission physical. Time Spent With Patient Time: Total time managing care of this patient today ____ minutes.
[2023-05-10 18:00] VITALS: BP 145/75; PULSE 101; RESP 22; TEMP 37; O2SAT 93
[2023-05-10] MEDS: Divalproex Sodium ER 500 MG TAB.ER.24H PO (20:49)
[2023-05-11 08:30] VITALS: BP 113/81; PULSE 82; RESP 18; TEMP 36.3; O2SAT 95
[2023-05-11] MEDS: Tamsulosin HCL 0.4 MG CAPSULE PO (09:06)
[2023-05-11] MEDS: Multivitamin TABLET 1 TAB PO (09:07)
[2023-05-11] MEDS: Nitrofurantoin Monohyd/M-Cryst 100 MG CAPSULE PO ×2 (09:07→20:42)
[2023-05-11] MEDS: bisacodyL 5 MG TABLET.DR PO (09:07)
[2023-05-11 09:45] LABS: Estimated Average Glucose 111 mg/dL; Hemoglobin A1c % 5.5 % (<6.0)
[2023-05-11 10:42] LABS: Thyroid Stimulating Hormone 1.05 uIU/mL (0.32-4.0)
[2023-05-11 10:50] LABS: Folate 7.1 ng/mL (> or = 4.0); Vitamin B12 256 pg/mL (200-900)
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
[2023-05-11 20:00] VITALS: BP 131/63; PULSE 97; TEMP 36.4
[2023-05-11] MEDS: Divalproex Sodium ER 500 MG TAB.ER.24H PO (20:41)
[2023-05-11] MEDS: traZODone HCL 100 MG TABLET PO (20:41)
[2023-05-11] MEDS: Milk of Magnesia 30 ML ORAL.SUSP PO (20:48)
[2023-05-12] MEDS: bisacodyL 5 MG TABLET.DR PO (09:35)
[2023-05-12] MEDS: Multivitamin TABLET 1 TAB PO (09:35)
[2023-05-12] MEDS: Nitrofurantoin Monohyd/M-Cryst 100 MG CAPSULE PO ×2 (09:35→21:14)
[2023-05-12] MEDS: Tamsulosin HCL 0.4 MG CAPSULE PO (09:35)
[2023-05-12 09:50] VITALS: BP 125/58; PULSE 90; RESP 18; TEMP 36.4; O2SAT 95
[2023-05-12 12:42] VITALS: BMI 30.3
[2023-05-12] MEDS: polyethylene glycoL 3350 17 GM POWD.PACK PO (13:06)
[2023-05-12 16:19] VITALS: BP 110/85; PULSE 88; TEMP 36.9
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
[2023-05-12] MEDS: Divalproex Sodium ER 500 MG TAB.ER.24H PO (21:14)
[2023-05-12] MEDS: Ibuprofen 600 MG TABLET PO (21:14)
[2023-05-12] MEDS: traZODone HCL 100 MG TABLET PO (21:14)
[2023-05-13 08:20] VITALS: BP 139/74; PULSE 92; RESP 18; TEMP 35.8; O2SAT 94
[2023-05-13] MEDS: Nitrofurantoin Monohyd/M-Cryst 100 MG CAPSULE PO ×2 (08:45→22:05)
[2023-05-13] MEDS: Tamsulosin HCL 0.4 MG CAPSULE PO (08:45)
[2023-05-13] MEDS: bisacodyL 5 MG TABLET.DR PO (08:45)
[2023-05-13] MEDS: Multivitamin TABLET 1 TAB PO (08:45)
[2023-05-13] MEDS: Ibuprofen 600 MG TABLET PO ×2 (08:47→20:19)
[2023-05-13] MEDS: Nicotine Polacrilex 2 MG GUM 4 MG BUCCAL ×2 (14:13→16:40)
--- NOTE | 2023-05-13 18:25 | MHC.RECOVRN ---
This travel writer met with patient after receiving addiction consult. Pt admitted for SI. Pt engaged in conversation, hyperverbal, some tangents. Pt reports stimulant use since the 1979's. Pt reports long periods of recovery [id number], brief recurrence, recovery time [id number]. Pt states during periods of sustained recovery was deeply involved with NA, which pt found helpful in maintaining recovery. 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 Pt reports increased stressors in 2019 led to recurrence. Pt reports involved with [facility] [place]. Pt reports goal of abstinence, is interested in CSS then TSS level of care. Pt requesting to speak with job coach/job developer. This travel writer reviewed recovery resources, pt verbalize understanding. Pt extremely knowledgeable of harm reduction, recovery supports. Resources left with patient. job coach/job developer to meet with patient edy.
--- NOTE | 2023-05-13 19:21 | P.PNPSI_ITS ---
Subjective Subjective Date of Service: 05/13/23 Reason For Visit: Bipolar Disorder, Cocaine Use Disorder Subjective Notes: Conditional Voluntary Healthcare Proxy: No Guardianship: No Medical Problems Affecting Mental Status: No Interim History: Pt continues to become clearer in thought and decision making. I will go to [facility], that is a reasonable program who can help me. Maybe I have over-reacted to my interpretation of my situation. Continues to look at program options, however, believes he will be healthier not living locally. Medication Compliance: Yes Side effects from medications: No Attending Groups: Intermittent Review of Systems Acute medical concerns: No Medical Review of Systems: unchanged Mental Status Exam Mental Status Exam Patient Appearance: Appropriate Patient Orientation: Person, Place, Time and Situation Level of Consciousness: Alert Patient Behavior: Talkative, Anxious, Distractible and Good Eye Contact Mood Description: Apprehensive Affect Description: Apprehensive Patient Cognition Impaired: No Ability to Follow Directions: Good Speech Pattern: Spontaneous Speech Memory Description: Episodic Impaired Hallucinations: None Delusions: Not Present Perceptual Disturbances: Derealization Thought Process: Distracted and Rumination Thought Content: positive for Circumstantial and positive for Perseveration Depressive Symptoms: Increased Anxiety, Diff. Making Decisions, Difficulty Sleeping, Feelings of Worthlessness, Hopelessness, Isolating-Friends/Family, Feelings of Guilt, Unhappiness, Low Self Esteem, Loss of Energy and Difficulty Concentrating Judgement: Good Diagnostics Vital Signs (24Hr): Vital Signs - 24 hr 05/13/23 08:20 Temperature 96.5 F L Pulse Rate 92 Respiratory Rate 18 Blood Pressure 139/74 Pulse Oximetry 94 Oxygen Delivery Method Room Air BMI result Body Mass Index 30.3 Labs 05/09/23 00:51 05/10/23 08:01 Medications Medications Current Medications Acetaminophen (Acetaminophen 325 Mg Tablet) 650 mg PO Q6H PRN PRN Reason: Headache/Pain Mild Scale (1-3) Last Admin: 05/09/23 22:19 Dose: 650 mg Al Hydroxide/Mg Hydroxide (Magnesium Hydrox/Alum Hydrox 30 Ml Oral.Susp) 30 ml PO Q6H PRN PRN Reason: Heartburn/Nausea Bisacodyl (Bisacodyl 5 Mg Tablet.) 5 mg PO DAILY LENNY Last Admin: 05/13/23 08:45 Dose: 5 mg Bisacodyl (Bisacodyl 5 Mg Tablet.) 10 mg PO DAILY PRN PRN Reason: Constipation Divalproex Sodium (Divalproex Sodium Er 500 Mg Tab.Er.24h) 1,000 mg PO BEDTIME LENNY Ibuprofen (Ibuprofen 600 Mg Tablet) 600 mg PO Q6H PRN PRN Reason: Pain, Mild (Pain Scale 1-3) Magnesium Hydroxide (Milk Of Magnesia 30 Ml Oral.Susp) 30 ml PO DAILY PRN PRN Reason: Constipation Last Admin: 05/11/23 20:48 Dose: 30 ml Multivitamins/Vitamin C (Multivitamin Tablet) 1 tab PO DAILY LENNY Last Admin: 05/13/23 08:45 Dose: 1 tab Nicotine (Nicotine 21 Mg Patch.Td24) 21 mg TRANSDERMA DAILY PRN PRN Reason: smoking cessation Nicotine Polacrilex (Nicotine Polacrilex 2 Mg Gum) 4 mg BUCCAL Q2H PRN PRN Reason: Nicotine Cravings Last Admin: 05/13/23 16:40 Dose: 4 mg Nitrofurantoin Macrocrystals (Nitrofurantoin Monohyd/M-Cryst 100 Mg Capsule) 100 mg PO BID [facility] Stop: 05/16/23 22:04 Last Admin: 05/13/23 08:45 Dose: 100 mg Olanzapine (Olanzapine 5 Mg Tablet) 5 mg PO TID PRN PRN Reason: agitation Last Admin: 05/10/23 02:41 Dose: 5 mg Olanzapine (Olanzapine 5 Mg Tablet) 5 mg PO BEDTIME [facility] Polyethylene Glycol (Polyethylene Glycol 3350 17 Gm Powd.Pack) 17 gm PO DAILY PRN PRN Reason: Constipation Last Admin: 05/12/23 13:06 Dose: 17 gm Tamsulosin HCl (Tamsulosin Hcl 0.4 Mg Capsule) 0.4 mg PO DAILY [facility] Last Admin: 05/13/23 08:45 Dose: 0.4 mg Trazodone HCl (Trazodone Hcl 100 Mg Tablet) 100 mg PO BEDTIME PRN PRN Reason: Insomnia Last Admin: 05/12/23 21:14 Dose: 100 mg Allergies Allergies Allergy/AdvReac Type Severity Reaction Status Date / Time No Known Allergies Allergy Verified 05/09/23 18:22 [No Known Allergies*] Assessment & Plan Assessment & Plan (1) Bipolar 1 disorder, depressed, moderate: Status: Acute Code(s): F31.32 - Bipolar disorder, current episode depressed, moderate (2) Cocaine dependence, uncomplicated: Status: Acute Code(s): F14.20 - Cocaine dependence, uncomplicated Plan 63 yo male, history of bipolar I disorder with coby, cocaine use disorder. To ER due to binge use of cocaine and overuse of Trazodone in an attempt to sleep/suicide attempt. Plan: Restart Depakote ER 500 mg HS MVI/Folic Acid B12,Folate, TSH, A1C Collateral contact Discharge planning-pt looking for a program out of the local area. 05/12/23 Increase Depakote to 1000 mg HS Zyprexa 5 mg hs 05/13/23 Tolerating medication changes Continue current regime/plan Patient educated on: medication risk/benefits and therapeutic strategies Informed Consent: understands Reason for continued inpatient stay Substantial Risk for: rapid decompensation Time Spent With Patient Time: Total time managing care of this patient today ____ minutes.
--- NOTE | 2023-05-13 20:36 | MHC.RECOVSUP ---
? Reason for consult:[place] o? Current location:[place]? o? Identified substance use concern:? -? Support ? Intervention: o? Community resources provided o? Harm reduction discussion ? Plan:Continue with inpatient treatment ? ? Additional information:RC met with this pt and discussed treatment options, this pt would like to continue treatment at a [facility], please follow up with this pt and submit a referral for [facility].
[2023-05-13 20:40] VITALS: BP 128/80; PULSE 93; TEMP 36.5
[2023-05-13] MEDS: Divalproex Sodium ER 500 MG TAB.ER.24H 1000 MG PO (22:04)
[2023-05-13] MEDS: traZODone HCL 100 MG TABLET PO (22:04)
[2023-05-13] MEDS: OLANZapine 5 MG TABLET PO (22:05)
[2023-05-14] MEDS: Ibuprofen 600 MG TABLET PO ×3 (02:34→21:00)
--- NOTE | 2023-05-14 08:15 | P.EN_ITS ---
Event Note Date of Service: 05/14/23 Event Note: Addiction consult placed for resource recovery engineer support Patient seen by financial wellness coach on 05/13. Requesting CSS referral Time Spent With Patient Time: Total time managing care of this patient today ____ minutes.
--- NOTE | 2023-05-14 08:15 | PM.EVENT ---
Event Note Date of Service: 05/14/23 Event Note: Addiction consult placed for college basketball coach support Patient seen by head girls golf coach on 05/13. Requesting CSS referral Time Spent With Patient Time: Total time managing care of this patient today ____ minutes.
[2023-05-14] MEDS: Nitrofurantoin Monohyd/M-Cryst 100 MG CAPSULE PO ×2 (08:40→20:59)
[2023-05-14] MEDS: Multivitamin TABLET 1 TAB PO (08:40)
[2023-05-14] MEDS: bisacodyL 5 MG TABLET.DR PO (08:40)
[2023-05-14] MEDS: Tamsulosin HCL 0.4 MG CAPSULE PO (08:40)
[2023-05-14 08:43] VITALS: BP 100/49; PULSE 70; RESP 18; TEMP 37.1; O2SAT 96
--- NOTE | 2023-05-14 08:47 | HO.PSYCHPN ---
Subjective Subjective Date of Service: 05/14/23 Reason For Visit: Bipolar Disorder, Cocaine Use Disorder Subjective Notes: Conditional Voluntary Healthcare Proxy: No Guardianship: No Medical Problems Affecting Mental Status: No Interim History: Increase in back pain reports-Lidocaine patch ordered, pt moved closer to the nursing station to decrease ambulation need. Today, discussed concerns about relationships with his son and son's mother. Son has pseudoseizure disorder and mental health issues. He reports a stronger alliance with son that son's mother and worries how this will effect him going away for treatment. This was discussed. Tolerating medications-finding increase dosage of Valproate and initiation of Olanzapine helpful. Will get labs 05/15. Medication Compliance: Yes Side effects from medications: No Attending Groups: Intermittent Review of Systems Acute medical concerns: No Medical Review of Systems: unchanged Mental Status Exam Mental Status Exam Patient Appearance: Appropriate Patient Orientation: Person, Place, Time and Situation Level of Consciousness: Alert Patient Behavior: Talkative, Anxious, Distractible and Good Eye Contact Mood Description: Apprehensive Affect Description: Apprehensive Patient Cognition Impaired: No Ability to Follow Directions: Good Speech Pattern: Spontaneous Speech Memory Description: Episodic Impaired Hallucinations: None Delusions: Not Present Perceptual Disturbances: Derealization Thought Process: Distracted and Rumination Thought Content: positive for Circumstantial and positive for Perseveration Depressive Symptoms: Increased Anxiety, Diff. Making Decisions, Difficulty Sleeping, Feelings of Worthlessness, Hopelessness, Isolating-Friends/Family, Feelings of Guilt, Unhappiness, Low Self Esteem, Loss of Energy and Difficulty Concentrating Judgement: Good Diagnostics Vital Signs (24Hr): Vital Signs - 24 hr 05/13/23 20:40 05/14/23 08:43 Temperature 97.7 F 98.7 F Pulse Rate 93 70 Respiratory Rate 18 Blood Pressure 128/80 100/49 L Pulse Oximetry 96 Oxygen Delivery Method Room Air BMI result Body Mass Index 30.3 Labs 05/15/23 07:19 05/15/23 07:19 Medications Medications Current Medications Acetaminophen (Acetaminophen 325 Mg Tablet) 650 mg PO Q6H PRN PRN Reason: Headache/Pain Mild Scale (1-3) Last Admin: 05/09/23 22:19 Dose: 650 mg Al Hydroxide/Mg Hydroxide (Magnesium Hydrox/Alum Hydrox 30 Ml Oral.Susp) 30 ml PO Q6H PRN PRN Reason: Heartburn/Nausea Bisacodyl (Bisacodyl 5 Mg Tablet.Dr) 5 mg PO DAILY [facility] Last Admin: 05/14/23 08:40 Dose: 5 mg Bisacodyl (Bisacodyl 5 Mg Tablet.Dr) 10 mg PO DAILY PRN PRN Reason: Constipation Divalproex Sodium (Divalproex Sodium Er 500 Mg Tab.Er.24h) 1,000 mg PO BEDTIME [facility] Last Admin: 05/13/23 22:04 Dose: 1,000 mg Ibuprofen (Ibuprofen 600 Mg Tablet) 600 mg PO Q6H PRN PRN Reason: Pain, Mild (Pain Scale 1-3) Last Admin: 05/14/23 02:34 Dose: 600 mg Magnesium Hydroxide (Milk Of Magnesia 30 Ml Oral.Susp) 30 ml PO DAILY PRN PRN Reason: Constipation Last Admin: 05/11/23 20:48 Dose: 30 ml Multivitamins/Vitamin C (Multivitamin Tablet) 1 tab PO DAILY [facility] Last Admin: 05/14/23 08:40 Dose: 1 tab Nicotine (Nicotine 21 Mg Patch.Td24) 21 mg TRANSDERMA DAILY PRN PRN Reason: smoking cessation Nicotine Polacrilex (Nicotine Polacrilex 2 Mg Gum) 4 mg BUCCAL Q2H PRN PRN Reason: Nicotine Cravings Last Admin: 05/13/23 16:40 Dose: 4 mg Nitrofurantoin Macrocrystals (Nitrofurantoin Monohyd/M-Cryst 100 Mg Capsule) 100 mg PO BID [facility] Stop: 05/16/23 22:04 Last Admin: 05/14/23 08:40 Dose: 100 mg Olanzapine (Olanzapine 5 Mg Tablet) 5 mg PO TID PRN PRN Reason: agitation Last Admin: 05/10/23 02:41 Dose: 5 mg Olanzapine (Olanzapine 5 Mg Tablet) 5 mg PO BEDTIME [facility] Last Admin: 05/13/23 22:05 Dose: 5 mg Polyethylene Glycol (Polyethylene Glycol 3350 17 Gm Powd.Pack) 17 gm PO DAILY PRN PRN Reason: Constipation Last Admin: 05/12/23 13:06 Dose: 17 gm Tamsulosin HCl (Tamsulosin Hcl 0.4 Mg Capsule) 0.4 mg PO DAILY [facility] Last Admin: 05/14/23 08:40 Dose: 0.4 mg Trazodone HCl (Trazodone Hcl 100 Mg Tablet) 100 mg PO BEDTIME PRN PRN Reason: Insomnia Last Admin: 05/13/23 22:04 Dose: 100 mg Allergies Allergies Allergy/AdvReac Type Severity Reaction Status Date / Time No Known Allergies Allergy Verified 05/09/23 18:22 [No Known Allergies*] Assessment & Plan Assessment & Plan (1) Bipolar 1 disorder, depressed, moderate: Status: Acute Code(s): F31.32 - Bipolar disorder, current episode depressed, moderate (2) Cocaine dependence, uncomplicated: Status: Acute Code(s): F14.20 - Cocaine dependence, uncomplicated Plan 63 yo male, history of bipolar I disorder with coby, cocaine use disorder. To ER due to binge use of cocaine and overuse of Trazodone in an attempt to sleep/suicide attempt. Plan: Restart Depakote ER 500 mg HS MVI/Folic Acid B12,Folate, TSH, A1C Collateral contact Discharge planning-pt looking for a program out of the local area. 05/12/23 Increase Depakote to 1000 mg HS Olanzapine 5 mg hs 05/13/23 Lidocaine Patch for back x 2. Continue regime and plan of care. Tolerating medication changes 05/14/23 Valproate Level Patient educated on: therapeutic strategies Informed Consent: understands Reason for continued inpatient stay Substantial Risk for: rapid decompensation Time Spent With Patient Time: Total time managing care of this patient today ____ minutes.
[2023-05-14] MEDS: Acetaminophen 325 MG TABLET 650 MG PO (12:53)
[2023-05-14] MEDS: Lidocaine 4 % Patch ADH..PATCH 1 PATCH TRANSDERMA (14:52)
[2023-05-14 18:00] VITALS: BP 148/97; PULSE 94; RESP 18; TEMP 36.7; O2SAT 96
[2023-05-14] MEDS: Divalproex Sodium ER 500 MG TAB.ER.24H 1000 MG PO (20:59)
[2023-05-14] MEDS: OLANZapine 5 MG TABLET PO ×2 (20:59→23:24)
[2023-05-14] MEDS: traZODone HCL 100 MG TABLET PO (21:00)
--- NOTE | 2023-05-15 05:45 | P.PNPSI_ITS ---
Subjective Subjective Date of Service: 05/15/23 Reason For Visit: Bipolar Disorder, Cocaine Use Disorder Subjective Notes: Conditional Voluntary Healthcare Proxy: No Guardianship: No Medical Problems Affecting Mental Status: No Interim History: Valproate Level 38.8 Continues to improve. Engaged with family, peers, milieu. Making discharge plans for longer term addiction treatment. Tolerating regime, feeling Olanzapine added to Valproate has been useful. Medication Compliance: Yes Side effects from medications: No Attending Groups: Intermittent Review of Systems Acute medical concerns: No Medical Review of Systems: unchanged Mental Status Exam Mental Status Exam Patient Appearance: Appropriate Patient Orientation: Person, Place, Time and Situation Level of Consciousness: Alert Patient Behavior: Talkative, Anxious, Distractible and Good Eye Contact Mood Description: Apprehensive Affect Description: Apprehensive Patient Cognition Impaired: No Ability to Follow Directions: Good Speech Pattern: Spontaneous Speech Memory Description: Episodic Impaired Hallucinations: None Delusions: Not Present Perceptual Disturbances: Derealization Thought Process: Distracted and Rumination Thought Content: positive for Circumstantial and positive for Perseveration Depressive Symptoms: Increased Anxiety, Diff. Making Decisions, Difficulty Sleeping, Feelings of Worthlessness, Hopelessness, Isolating-Friends/Family, Feelings of Guilt, Unhappiness, Low Self Esteem, Loss of Energy and Difficulty Concentrating Judgement: Good Diagnostics Vital Signs (24Hr): Vital Signs - 24 hr 05/14/23 08:43 05/14/23 18:00 Temperature 98.7 F 98.1 F Pulse Rate 70 94 Respiratory Rate 18 18 Blood Pressure 100/49 L 148/97 H Pulse Oximetry 96 96 Oxygen Delivery Method Room Air Room Air BMI result Body Mass Index 30.3 Labs 05/15/23 07:19 05/15/23 07:19 Medications Medications Current Medications Acetaminophen (Acetaminophen 325 Mg Tablet) 650 mg PO Q6H PRN PRN Reason: Headache/Pain Mild Scale (1-3) Last Admin: 05/14/23 12:53 Dose: 650 mg Al Hydroxide/Mg Hydroxide (Magnesium Hydrox/Alum Hydrox 30 Ml Oral.Susp) 30 ml PO Q6H PRN PRN Reason: Heartburn/Nausea Bisacodyl (Bisacodyl 5 Mg Tablet.Dr) 5 mg PO DAILY LENNY Last Admin: 05/14/23 08:40 Dose: 5 mg Bisacodyl (Bisacodyl 5 Mg Tablet.) 10 mg PO DAILY PRN PRN Reason: Constipation Divalproex Sodium (Divalproex Sodium Er 500 Mg Tab.Er.24h) 1,000 mg PO BEDTIME [facility] Last Admin: 05/14/23 20:59 Dose: 1,000 mg Ibuprofen (Ibuprofen 600 Mg Tablet) 600 mg PO Q6H PRN PRN Reason: Pain, Mild (Pain Scale 1-3) Last Admin: 05/14/23 21:00 Dose: 600 mg Lidocaine (Lidocaine 4 % Patch Adh..Patch) 2 patch TRANSDERMA DAILY [facility]; Protocol Last Admin: 05/14/23 18:09 Dose: Not Given Magnesium Hydroxide (Milk Of Magnesia 30 Ml Oral.Susp) 30 ml PO DAILY PRN PRN Reason: Constipation Last Admin: 05/11/23 20:48 Dose: 30 ml Multivitamins/Vitamin C (Multivitamin Tablet) 1 tab PO DAILY [facility] Last Admin: 05/14/23 08:40 Dose: 1 tab Nicotine (Nicotine 21 Mg Patch.Td24) 21 mg TRANSDERMA DAILY PRN PRN Reason: smoking cessation Nicotine Polacrilex (Nicotine Polacrilex 2 Mg Gum) 4 mg BUCCAL Q2H PRN PRN Reason: Nicotine Cravings Last Admin: 05/13/23 16:40 Dose: 4 mg Nitrofurantoin Macrocrystals (Nitrofurantoin Monohyd/M-Cryst 100 Mg Capsule) 100 mg PO BID [facility] Stop: 05/16/23 22:04 Last Admin: 05/14/23 20:59 Dose: 100 mg Olanzapine (Olanzapine 5 Mg Tablet) 5 mg PO TID PRN PRN Reason: agitation Last Admin: 05/14/23 23:24 Dose: 5 mg Olanzapine (Olanzapine 5 Mg Tablet) 5 mg PO BEDTIME [facility] Last Admin: 05/14/23 20:59 Dose: 5 mg Polyethylene Glycol (Polyethylene Glycol 3350 17 Gm Powd.Pack) 17 gm PO DAILY PRN PRN Reason: Constipation Last Admin: 05/12/23 13:06 Dose: 17 gm Tamsulosin HCl (Tamsulosin Hcl 0.4 Mg Capsule) 0.4 mg PO DAILY [facility] Last Admin: 05/14/23 08:40 Dose: 0.4 mg Trazodone HCl (Trazodone Hcl 100 Mg Tablet) 100 mg PO BEDTIME PRN PRN Reason: Insomnia Last Admin: 05/14/23 21:00 Dose: 100 mg Allergies Allergies Allergy/AdvReac Type Severity Reaction Status Date / Time No Known Allergies Allergy Verified 05/09/23 18:22 [No Known Allergies*] Assessment & Plan Assessment & Plan (1) Bipolar 1 disorder, depressed, moderate: Status: Acute Code(s): F31.32 - Bipolar disorder, current episode depressed, moderate (2) Cocaine dependence, uncomplicated: Status: Acute Code(s): F14.20 - Cocaine dependence, uncomplicated Plan 63 yo male, history of bipolar I disorder with coby, cocaine use disorder. To ER due to binge use of cocaine and overuse of Trazodone in an attempt to sleep/suicide attempt. Plan: Restart Depakote ER 500 mg HS MVI/Folic Acid B12,Folate, TSH, A1C Collateral contact Discharge planning-pt looking for a program out of the local area. 05/12/23 Increase Depakote to 1000 mg HS Olanzapine 5 mg hs 05/13/23 Lidocaine Patch for back x 2. Continue regime and plan of care. Tolerating medication changes 05/15/23 Awaiting placement acceptance Valproate 38.8. Dosage increase 05/16. Continue current regime Patient educated on: therapeutic strategies Informed Consent: understands Reason for continued inpatient stay Substantial Risk for: rapid decompensation Time Spent With Patient Time: Total time managing care of this patient today ____ minutes.
[2023-05-15 07:37] LABS: Basophils Absolute Auto 0.1 X10*3/uL (0.0-0.2); Basophils Percent Auto 0.6 % (0-2); Eosinophils Absolute Auto 0.3 X10*3/uL (0.0-0.4); Eosinophils Percent Auto 3.7 % (0-4); Hematocrit 47.1 % (42.0-52.0); Hemoglobin 15.8 g/dl (14.0-18.0); Imm Gran Abs Auto 0.06 X10*3/uL (0.00-0.03); Imm Gran Pct Auto 0.7 % (0.0-0.4); Lymphocytes Absolute Auto 2.8 X10*3/uL (1.2-4.9); Lymphocytes Percent Auto 32.2 % (20-40); MANUAL DIFF FLAG NO; Mean Corpuscular HGB Conc 33.5 g/dl (31.0-36.0); Mean Corpuscular Hemoglobin 29.8 pg (27.0-33.0); Mean Corpuscular Volume 88.9 fL (80.0-98.0); Mean Platelet Volume 8.6 fL (9.4-12.4); Monocytes Percent Auto 11.4 % (2-11); Neutrophils Absolute Auto 4.5 x10*3/uL (2.0-8.3); Neutrophils Percent Auto 51.4 % (45-73); Platelet Count 293 X10*3/uL (160-400); Red Cell Distribution Width 13.2 % (11.0-16.0); White Blood Count 8.7 X10*3/uL (4.8-10.8)
[2023-05-15 07:56] LABS: Valproate 38.8 mcg/mL (50.0-100.0)
[2023-05-15 07:59] LABS: Alanine Aminotransferase 20 U/L (0-40); Albumin Level 3.8 g/dL (3.5-5.0); Alkaline Phosphatase 61 U/L (39-117); Anion Gap 17 (12-20); Aspartate Amino Transferase 15 U/L (5-37); Bilirubin Total 0.2 mg/dL (0.0-1.0); Blood Urea Nitrogen 9 mg/dL (9-16); Calcium 9.1 mg/dL (8.4-10.2); Carbon Dioxide 21 mmol/L (22-29); Chloride 106 mmol/L (96-108); Creatinine Clr Calc Pharmacy 99.2; Estimated Glomerular Filt Rate > 60; Glucose Random 186 mg/dL (60-115); Potassium 4.2 mmol/L (3.3-5.1); Sodium 140 mmol/L (135-145); Total Protein 6.7 g/dL (6.5-8.0)
[2023-05-15] MEDS: Nitrofurantoin Monohyd/M-Cryst 100 MG CAPSULE PO ×2 (08:27→21:27)
[2023-05-15] MEDS: Ibuprofen 600 MG TABLET PO ×2 (08:27→21:27)
[2023-05-15] MEDS: Tamsulosin HCL 0.4 MG CAPSULE PO (08:28)
[2023-05-15] MEDS: bisacodyL 5 MG TABLET.DR PO (08:28)
[2023-05-15] MEDS: Multivitamin TABLET 1 TAB PO (08:28)
[2023-05-15 08:35] VITALS: BP 115/76; PULSE 85; RESP 18; TEMP 36.7; O2SAT 96
[2023-05-15] MEDS: Lidocaine 4 % Patch ADH..PATCH 2 PATCH TRANSDERMA (11:57)
[2023-05-15 16:28] VITALS: BP 149/74; PULSE 100; RESP 20; TEMP 36.6; O2SAT 96
[2023-05-15] MEDS: OLANZapine 5 MG TABLET PO (21:26)
[2023-05-15] MEDS: Divalproex Sodium ER 500 MG TAB.ER.24H 1000 MG PO (21:27)
[2023-05-15] MEDS: traZODone HCL 100 MG TABLET PO (21:28)
[2023-05-16] MEDS: Lidocaine 4 % Patch ADH..PATCH 2 PATCH TRANSDERMA (06:46)
[2023-05-16] MEDS: Nitrofurantoin Monohyd/M-Cryst 100 MG CAPSULE PO ×2 (08:26→20:46)
[2023-05-16] MEDS: Tamsulosin HCL 0.4 MG CAPSULE PO (08:26)
[2023-05-16] MEDS: bisacodyL 5 MG TABLET.DR PO (08:26)
[2023-05-16] MEDS: Multivitamin TABLET 1 TAB PO (08:26)
[2023-05-16 08:40] VITALS: BP 124/75; PULSE 91; RESP 18; TEMP 36.4; O2SAT 96
[2023-05-16] MEDS: Ibuprofen 600 MG TABLET PO ×2 (09:28→20:46)
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
[2023-05-16 20:38] VITALS: BP 151/95; PULSE 109; TEMP 36.8
[2023-05-16] MEDS: Divalproex Sodium ER 500 MG TAB.ER.24H 1500 MG PO (20:46)
[2023-05-16] MEDS: traZODone HCL 100 MG TABLET PO (20:47)
[2023-05-16] MEDS: OLANZapine 5 MG TABLET PO (20:47)
[2023-05-16] MEDS: Magnesium Hydrox/Alum Hydrox 30 ML ORAL.SUSP PO (20:47)
[2023-05-17 06:00] VITALS: BP 117/69; PULSE 80; RESP 16; TEMP 36.6; O2SAT 96
[2023-05-17] MEDS: bisacodyL 5 MG TABLET.DR PO (09:23)
[2023-05-17] MEDS: Nicotine Polacrilex 2 MG GUM 4 MG BUCCAL (09:23)
[2023-05-17] MEDS: Tamsulosin HCL 0.4 MG CAPSULE PO (09:23)
[2023-05-17] MEDS: Multivitamin TABLET 1 TAB PO (09:23)
[2023-05-17] MEDS: Ibuprofen 600 MG TABLET PO (09:26)
--- NOTE | 2023-05-17 16:41 | P.PNPSI_ITS ---
Subjective Subjective Date of Service: 05/17/23 Reason For Visit: Bipolar Disorder, Cocaine Use Disorder Subjective Notes: Conditional Voluntary Healthcare Proxy: No Guardianship: No Medical Problems Affecting Mental Status: No Interim History: I act like a clown most of the time, but I hurt . Pt continues to be clear, awaits [facility] placement. Depakote increase to 1500 mg, EKG WNL, Valproate 38.8 Reports feeling improved. Spent time today talking about his relationship with his son, who has mental illness, and his concerns for him moving forward. Discussed therapeutic interventions and supportive techniques he can utilize to support his son. Discussed supports he can access for himself for parenting. Medication Compliance: Yes Side effects from medications: No Attending Groups: Intermittent Review of Systems Acute medical concerns: No Medical Review of Systems: unchanged Mental Status Exam Mental Status Exam Patient Appearance: Appropriate Patient Orientation: Person, Place, Time and Situation Level of Consciousness: Alert Patient Behavior: Talkative, Anxious, Distractible and Good Eye Contact Mood Description: Apprehensive Affect Description: Apprehensive Patient Cognition Impaired: No Ability to Follow Directions: Good Speech Pattern: Spontaneous Speech Memory Description: Episodic Impaired Diagnostics Vital Signs (24Hr): Vital Signs - 24 hr 05/16/23 20:38 05/17/23 06:00 Temperature 98.2 F 98 F Pulse Rate 109 H 80 Respiratory Rate 16 Blood Pressure 151/95 H 117/69 Pulse Oximetry 96 Oxygen Delivery Method Room Air BMI result Body Mass Index 30.3 Labs 05/15/23 07:19 05/15/23 07:19 Medications Medications Current Medications Acetaminophen (Acetaminophen 325 Mg Tablet) 650 mg PO Q6H PRN PRN Reason: Headache/Pain Mild Scale (1-3) Last Admin: 05/14/23 12:53 Dose: 650 mg Al Hydroxide/Mg Hydroxide (Magnesium Hydrox/Alum Hydrox 30 Ml Oral.Susp) 30 ml PO Q6H PRN PRN Reason: Heartburn/Nausea Last Admin: 05/16/23 20:47 Dose: 30 ml Bisacodyl (Bisacodyl 5 Mg Tablet.Dr) 5 mg PO DAILY [facility] Last Admin: 05/17/23 09:23 Dose: 5 mg Bisacodyl (Bisacodyl 5 Mg Tablet.) 10 mg PO DAILY PRN PRN Reason: Constipation Divalproex Sodium (Divalproex Sodium Er 500 Mg Tab.Er.24h) 1,500 mg PO BEDTIME [facility] Last Admin: 05/16/23 20:46 Dose: 1,500 mg Ibuprofen (Ibuprofen 600 Mg Tablet) 600 mg PO Q6H PRN PRN Reason: Pain, Mild (Pain Scale 1-3) Last Admin: 05/17/23 09:26 Dose: 600 mg Lidocaine (Lidocaine 4 % Patch Adh..Patch) 2 patch TRANSDERMA DAILY [facility]; Protocol Last Admin: 05/17/23 09:28 Dose: Not Given Magnesium Hydroxide (Milk Of Magnesia 30 Ml Oral.Susp) 30 ml PO DAILY PRN PRN Reason: Constipation Last Admin: 05/11/23 20:48 Dose: 30 ml Multivitamins/Vitamin C (Multivitamin Tablet) 1 tab PO DAILY [facility] Last Admin: 05/17/23 09:23 Dose: 1 tab Nicotine (Nicotine 21 Mg Patch.Td24) 21 mg TRANSDERMA DAILY PRN PRN Reason: smoking cessation Nicotine Polacrilex (Nicotine Polacrilex 2 Mg Gum) 4 mg BUCCAL Q2H PRN PRN Reason: Nicotine Cravings Last Admin: 05/17/23 09:23 Dose: 4 mg Olanzapine (Olanzapine 5 Mg Tablet) 5 mg PO TID PRN PRN Reason: agitation Last Admin: 05/14/23 23:24 Dose: 5 mg Olanzapine (Olanzapine 5 Mg Tablet) 5 mg PO BEDTIME [facility] Last Admin: 05/16/23 20:47 Dose: 5 mg Polyethylene Glycol (Polyethylene Glycol 3350 17 Gm Powd.Pack) 17 gm PO DAILY PRN PRN Reason: Constipation Last Admin: 05/12/23 13:06 Dose: 17 gm Tamsulosin HCl (Tamsulosin Hcl 0.4 Mg Capsule) 0.4 mg PO DAILY [facility] Last Admin: 05/17/23 09:23 Dose: 0.4 mg Trazodone HCl (Trazodone Hcl 100 Mg Tablet) 100 mg PO BEDTIME PRN PRN Reason: Insomnia Last Admin: 05/16/23 20:47 Dose: 100 mg Allergies Allergies Allergy/AdvReac Type Severity Reaction Status Date / Time No Known Allergies Allergy Verified 05/09/23 18:22 [No Known Allergies*] Assessment & Plan Assessment & Plan (1) Bipolar 1 disorder, depressed, moderate: Status: Acute Code(s): F31.32 - Bipolar disorder, current episode depressed, moderate (2) Cocaine dependence, uncomplicated: Status: Acute Code(s): F14.20 - Cocaine dependence, uncomplicated Plan 63 yo male, history of bipolar I disorder with coby, cocaine use disorder. To ER due to binge use of cocaine and overuse of Trazodone in an attempt to sleep/suicide attempt. Plan: Restart Depakote ER 500 mg HS MVI/Folic Acid B12,Folate, TSH, A1C Collateral contact Discharge planning-pt looking for a program out of the local area. 05/12/23 Increase Depakote to 1000 mg HS Olanzapine 5 mg hs 05/13/23 Lidocaine Patch for back x 2. Continue regime and plan of care. Tolerating medication changes 05/15/23 Awaiting placement acceptance Valproate 38.8. Dosage increase 05/16. Continue current regime 05/16 continue tx. pending acceptance to [facility]. 05/17 Continue current regime and plan of care. Patient educated on: therapeutic strategies Informed Consent: understands Reason for continued inpatient stay Substantial Risk for: rapid decompensation Time Spent With Patient Time: Total time managing care of this patient today ____ minutes.
[2023-05-17 17:39] VITALS: BP 122/68; PULSE 99; TEMP 36.9
[2023-05-17] MEDS: Lidocaine 4 % Patch ADH..PATCH 2 PATCH TRANSDERMA (18:04)
[2023-05-17] MEDS: Divalproex Sodium ER 500 MG TAB.ER.24H 1500 MG PO (21:45)
[2023-05-17] MEDS: OLANZapine 5 MG TABLET PO (21:45)
[2023-05-17] MEDS: traZODone HCL 100 MG TABLET PO (21:45)
[2023-05-18 08:08] VITALS: BP 119/75; PULSE 94; RESP 16; TEMP 36.3; O2SAT 100
[2023-05-18] MEDS: Multivitamin TABLET 1 TAB PO (08:39)
[2023-05-18] MEDS: Tamsulosin HCL 0.4 MG CAPSULE PO (08:39)
[2023-05-18] MEDS: bisacodyL 5 MG TABLET.DR PO (08:41)
[2023-05-18] MEDS: Ibuprofen 600 MG TABLET PO (14:29)
[2023-05-18] MEDS: guaiFENesin DM 200/20/10 ML 10 ML SYRUP PO ×2 (14:29→19:09)
[2023-05-18 15:33] LABS: COVID-19 Test Negative (Negative); IDNOW Serial# BCCEAD1C
--- NOTE | 2023-05-18 17:22 | P.PNPSI_ITS ---
Subjective Subjective Date of Service: 05/18/23 Reason For Visit: Bipolar Disorder, Cocaine Use Disorder Subjective Notes: Conditional Voluntary Healthcare Proxy: No Guardianship: No Medical Problems Affecting Mental Status: No Interim History: Telling peers he will go to [place] to a recovery center. Discussed with pt. He has no plans to go to [place], states his brother lives there and I wanted to throw people off. 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 HI expressed. When discussed pt has no intent, I just want to go in my direction and leave them alone while they leave me alone. Will leave his apartment. Looking forward to [facility]. Medication Compliance: Yes Side effects from medications: No Attending Groups: Intermittent Review of Systems Acute medical concerns: No Medical Review of Systems: unchanged Mental Status Exam Mental Status Exam Patient Appearance: Appropriate Patient Orientation: Person, Place, Time and Situation Level of Consciousness: Alert Patient Behavior: Talkative, Anxious, Distractible and Good Eye Contact Mood Description: Apprehensive Affect Description: Apprehensive Patient Cognition Impaired: No Ability to Follow Directions: Good Speech Pattern: Spontaneous Speech Memory Description: Episodic Impaired Diagnostics Vital Signs (24Hr): Vital Signs - 24 hr 05/17/23 17:39 05/18/23 08:08 Temperature 98.4 F 97.4 F Pulse Rate 99 94 Respiratory Rate 16 Blood Pressure 122/68 119/75 Pulse Oximetry 100 Oxygen Delivery Method Room Air BMI result Body Mass Index 30.3 Labs 05/15/23 07:19 05/15/23 07:19 Labs: Laboratory Results - last 48 hr 05/18/23 14:42 COVID-19 ([facility]) Negative COVID-19 Clin Com See Note Medications Medications Current Medications Acetaminophen (Acetaminophen 325 Mg Tablet) 650 mg PO Q6H PRN PRN Reason: Headache/Pain Mild Scale (1-3) Last Admin: 05/14/23 12:53 Dose: 650 mg Al Hydroxide/Mg Hydroxide (Magnesium Hydrox/Alum Hydrox 30 Ml Oral.Susp) 30 ml PO Q6H PRN PRN Reason: Heartburn/Nausea Last Admin: 05/16/23 20:47 Dose: 30 ml Bisacodyl (Bisacodyl 5 Mg Tablet.) 5 mg PO DAILY [facility] Last Admin: 05/18/23 08:41 Dose: 5 mg Bisacodyl (Bisacodyl 5 Mg Tablet.Dr) 10 mg PO DAILY PRN PRN Reason: Constipation Divalproex Sodium (Divalproex Sodium Er 500 Mg Tab.Er.24h) 1,500 mg PO BEDTIME [facility] Last Admin: 05/17/23 21:45 Dose: 1,500 mg Guaifenesin/Dextromethorphan (Guaifenesin Dm 200/20/10 Ml 10 Ml Syrup) 10 ml PO Q6H [facility] Last Admin: 05/18/23 14:29 Dose: 10 ml Ibuprofen (Ibuprofen 600 Mg Tablet) 600 mg PO Q6H PRN PRN Reason: Pain, Mild (Pain Scale 1-3) Last Admin: 05/18/23 14:29 Dose: 600 mg Lidocaine (Lidocaine 4 % Patch Adh..Patch) 2 patch TRANSDERMA DAILY [facility]; Protocol Last Admin: 05/18/23 08:45 Dose: Not Given Magnesium Hydroxide (Milk Of Magnesia 30 Ml Oral.Susp) 30 ml PO DAILY PRN PRN Reason: Constipation Last Admin: 05/11/23 20:48 Dose: 30 ml Multivitamins/Vitamin C (Multivitamin Tablet) 1 tab PO DAILY [facility] Last Admin: 05/18/23 08:39 Dose: 1 tab Nicotine (Nicotine 21 Mg Patch.Td24) 21 mg TRANSDERMA DAILY PRN PRN Reason: smoking cessation Nicotine Polacrilex (Nicotine Polacrilex 2 Mg Gum) 4 mg BUCCAL Q2H PRN PRN Reason: Nicotine Cravings Last Admin: 05/17/23 09:23 Dose: 4 mg Olanzapine (Olanzapine 5 Mg Tablet) 5 mg PO TID PRN PRN Reason: agitation Last Admin: 05/14/23 23:24 Dose: 5 mg Olanzapine (Olanzapine 5 Mg Tablet) 5 mg PO BEDTIME [facility] Last Admin: 05/17/23 21:45 Dose: 5 mg Polyethylene Glycol (Polyethylene Glycol 3350 17 Gm Powd.Pack) 17 gm PO DAILY PRN PRN Reason: Constipation Last Admin: 05/12/23 13:06 Dose: 17 gm Tamsulosin HCl (Tamsulosin Hcl 0.4 Mg Capsule) 0.4 mg PO DAILY [facility] Last Admin: 05/18/23 08:39 Dose: 0.4 mg Trazodone HCl (Trazodone Hcl 100 Mg Tablet) 100 mg PO BEDTIME PRN PRN Reason: Insomnia Last Admin: 05/17/23 21:45 Dose: 100 mg Allergies Allergies Allergy/AdvReac Type Severity Reaction Status Date / Time No Known Allergies Allergy Verified 05/09/23 18:22 [No Known Allergies*] Assessment & Plan Assessment & Plan (1) Bipolar 1 disorder, depressed, moderate: Status: Acute Code(s): F31.32 - Bipolar disorder, current episode depressed, moderate (2) Cocaine dependence, uncomplicated: Status: Acute Code(s): F14.20 - Cocaine dependence, uncomplicated Plan 63 yo male, history of bipolar I disorder with coby, cocaine use disorder. To ER due to binge use of cocaine and overuse of Trazodone in an attempt to sleep/suicide attempt. Plan: Restart Depakote ER 500 mg HS MVI/Folic Acid B12,Folate, TSH, A1C Collateral contact Discharge planning-pt looking for a program out of the local area. 05/12/23 Increase Depakote to 1000 mg HS Olanzapine 5 mg hs 05/13/23 Lidocaine Patch for back x 2. Continue regime and plan of care. Tolerating medication changes 05/15/23 Awaiting placement acceptance Valproate 38.8. Dosage increase 05/16. Continue current regime 05/16 continue tx. pending acceptance to [facility]. 05/18 continue regime and plan of care. Does report cough, cough medicine prn ordered Continue to monitor Patient educated on: medication risk/benefits, therapeutic strategies and medical condition Informed Consent: understands Reason for continued inpatient stay Substantial Risk for: rapid decompensation Time Spent With Patient Time: Total time managing care of this patient today ____ minutes.
[2023-05-18] MEDS: Acetaminophen 325 MG TABLET 650 MG PO (17:48)
[2023-05-18 18:00] VITALS: BP 124/70; PULSE 90; RESP 18; TEMP 36.1
[2023-05-18] MEDS: Nicotine Polacrilex 2 MG GUM 4 MG BUCCAL (20:03)
[2023-05-18] MEDS: Lidocaine 4 % Patch ADH..PATCH 2 PATCH TRANSDERMA (21:42)
[2023-05-18] MEDS: Divalproex Sodium ER 500 MG TAB.ER.24H 1500 MG PO (21:42)
[2023-05-18] MEDS: traZODone HCL 100 MG TABLET PO (21:42)
[2023-05-18] MEDS: OLANZapine 5 MG TABLET PO (21:42)
[2023-05-19 08:10] VITALS: BP 135/87; PULSE 89; RESP 16; TEMP 36.6; O2SAT 96
[2023-05-19] MEDS: guaiFENesin DM 200/20/10 ML 10 ML SYRUP PO ×3 (09:10→18:45)
[2023-05-19] MEDS: bisacodyL 5 MG TABLET.DR PO (09:10)
[2023-05-19] MEDS: Multivitamin TABLET 1 TAB PO (09:10)
[2023-05-19] MEDS: Tamsulosin HCL 0.4 MG CAPSULE PO (09:10)
[2023-05-19 12:55] VITALS: BMI 31.9
[2023-05-19] MEDS: Ibuprofen 600 MG TABLET PO (17:47)
--- NOTE | 2023-05-19 18:55 | HO.PSYCHPN ---
Subjective Subjective Date of Service: 05/19/23 Reason For Visit: Bipolar Disorder, Cocaine Use Disorder Subjective Notes: Conditional Voluntary Healthcare Proxy: No Guardianship: No Medical Problems Affecting Mental Status: No Interim History: Discussed feeling good about getting his treatment in order and doing what is needed to take care of himself. Discussed concerns about his finances and irresponsiblity. Talked of a possible search for a personal financial representative payee. Feels the first of the month is triggering as he has funds, needs to pay expenses but is tempted . Wanting to manage that time better to avoid a problem. Discussed back pain and his surgery on 01/23 along with concerns about chronic pain mgt. Medication Compliance: Yes Side effects from medications: No Attending Groups: Yes Review of Systems Acute medical concerns: No Medical Review of Systems: unchanged Mental Status Exam Mental Status Exam Patient Appearance: Appropriate Patient Orientation: Person, Place, Time and Situation Level of Consciousness: Alert Patient Behavior: Talkative, Anxious, Distractible and Good Eye Contact Mood Description: Apprehensive Affect Description: Apprehensive Patient Cognition Impaired: No Ability to Follow Directions: Good Speech Pattern: Spontaneous Speech Memory Description: Episodic Impaired Diagnostics Vital Signs (24Hr): Vital Signs - 24 hr 05/19/23 08:10 Temperature 97.8 F Pulse Rate 89 Respiratory Rate 16 Blood Pressure 135/87 Pulse Oximetry 96 Oxygen Delivery Method Room Air BMI result Body Mass Index 31.9 Labs 05/15/23 07:19 05/15/23 07:19 Labs: Laboratory Results - last 48 hr 05/18/23 14:42 COVID-19 ([facility]) Negative COVID-19 Clin Com See Note Medications Medications Current Medications Acetaminophen (Acetaminophen 325 Mg Tablet) 650 mg PO Q6H PRN PRN Reason: Headache/Pain Mild Scale (1-3) Last Admin: 05/18/23 17:48 Dose: 650 mg Al Hydroxide/Mg Hydroxide (Magnesium Hydrox/Alum Hydrox 30 Ml Oral.Susp) 30 ml PO Q6H PRN PRN Reason: Heartburn/Nausea Last Admin: 05/16/23 20:47 Dose: 30 ml Bisacodyl (Bisacodyl 5 Mg Tablet.) 5 mg PO DAILY [facility] Last Admin: 05/19/23 09:10 Dose: 5 mg Bisacodyl (Bisacodyl 5 Mg Tablet.) 10 mg PO DAILY PRN PRN Reason: Constipation Divalproex Sodium (Divalproex Sodium Er 500 Mg Tab.Er.24h) 1,500 mg PO BEDTIME [facility] Last Admin: 05/18/23 21:42 Dose: 1,500 mg Guaifenesin/Dextromethorphan (Guaifenesin Dm 200/20/10 Ml 10 Ml Syrup) 10 ml PO Q6H [facility] Last Admin: 05/19/23 18:45 Dose: 10 ml Ibuprofen (Ibuprofen 600 Mg Tablet) 600 mg PO Q6H PRN PRN Reason: Pain, Mild (Pain Scale 1-3) Last Admin: 05/19/23 17:47 Dose: 600 mg Lidocaine (Lidocaine 4 % Patch Adh..Patch) 2 patch TRANSDERMA DAILY [facility]; Protocol Last Admin: 05/18/23 21:42 Dose: 2 patch Magnesium Hydroxide (Milk Of Magnesia 30 Ml Oral.Susp) 30 ml PO DAILY PRN PRN Reason: Constipation Last Admin: 05/11/23 20:48 Dose: 30 ml Multivitamins/Vitamin C (Multivitamin Tablet) 1 tab PO DAILY [facility] Last Admin: 05/19/23 09:10 Dose: 1 tab Nicotine (Nicotine 21 Mg Patch.Td24) 21 mg TRANSDERMA DAILY PRN PRN Reason: smoking cessation Nicotine Polacrilex (Nicotine Polacrilex 2 Mg Gum) 4 mg BUCCAL Q2H PRN PRN Reason: Nicotine Cravings Last Admin: 05/18/23 20:03 Dose: 4 mg Olanzapine (Olanzapine 5 Mg Tablet) 5 mg PO TID PRN PRN Reason: agitation Last Admin: 05/14/23 23:24 Dose: 5 mg Olanzapine (Olanzapine 5 Mg Tablet) 5 mg PO BEDTIME [facility] Last Admin: 05/18/23 21:42 Dose: 5 mg Polyethylene Glycol (Polyethylene Glycol 3350 17 Gm Powd.Pack) 17 gm PO DAILY PRN PRN Reason: Constipation Last Admin: 05/12/23 13:06 Dose: 17 gm Tamsulosin HCl (Tamsulosin Hcl 0.4 Mg Capsule) 0.4 mg PO DAILY [facility] Last Admin: 05/19/23 09:10 Dose: 0.4 mg Trazodone HCl (Trazodone Hcl 100 Mg Tablet) 100 mg PO BEDTIME PRN PRN Reason: Insomnia Last Admin: 05/18/23 21:42 Dose: 100 mg Allergies Allergies Allergy/AdvReac Type Severity Reaction Status Date / Time No Known Allergies Allergy Verified 05/09/23 18:22 [No Known Allergies*] Assessment & Plan Assessment & Plan (1) Bipolar 1 disorder, depressed, moderate: Status: Acute Code(s): F31.32 - Bipolar disorder, current episode depressed, moderate (2) Cocaine dependence, uncomplicated: Status: Acute Code(s): F14.20 - Cocaine dependence, uncomplicated Plan 63 yo male, history of bipolar I disorder with coby, cocaine use disorder. To ER due to binge use of cocaine and overuse of Trazodone in an attempt to sleep/suicide attempt. Plan: Restart Depakote ER 500 mg HS MVI/Folic Acid B12,Folate, TSH, A1C Collateral contact Discharge planning-pt looking for a program out of the local area. 05/12/23 Increase Depakote to 1000 mg HS Olanzapine 5 mg hs 05/13/23 Lidocaine Patch for back x 2. Continue regime and plan of care. Tolerating medication changes 05/15/23 Awaiting placement acceptance Valproate 38.8. Dosage increase 05/16. Continue current regime 05/16 continue tx. pending acceptance to [facility]. 05/17 Continue current regime and plan of care. 05/19 Continue current regime and plan of care. Patient educated on: therapeutic strategies and medical condition Informed Consent: understands and further education needed Reason for continued inpatient stay Substantial Risk for: rapid decompensation Time Spent With Patient Time: Total time managing care of this patient today ____ minutes.
[2023-05-19] MEDS: Nicotine Polacrilex 2 MG GUM 4 MG BUCCAL (19:16)
[2023-05-19 19:40] VITALS: BP 126/75; PULSE 99; TEMP 36.8
[2023-05-19] MEDS: Divalproex Sodium ER 500 MG TAB.ER.24H 1500 MG PO (22:04)
[2023-05-19] MEDS: traZODone HCL 100 MG TABLET PO (22:04)
[2023-05-19] MEDS: OLANZapine 5 MG TABLET PO (22:04)
[2023-05-20] MEDS: guaiFENesin DM 200/20/10 ML 10 ML SYRUP PO ×2 (06:33→20:44)
[2023-05-20] MEDS: Tamsulosin HCL 0.4 MG CAPSULE PO (08:55)
[2023-05-20] MEDS: Ibuprofen 600 MG TABLET PO ×2 (08:56→16:04)
[2023-05-20] MEDS: bisacodyL 5 MG TABLET.DR PO (08:56)
[2023-05-20] MEDS: Multivitamin TABLET 1 TAB PO (08:56)
[2023-05-20 09:05] VITALS: BP 129/70; PULSE 94; RESP 18; TEMP 36.6; O2SAT 96
--- NOTE | 2023-05-20 12:54 | HO.PSYCHPN ---
Subjective Subjective Date of Service: 05/20/23 Reason For Visit: Bipolar Disorder, Cocaine Use Disorder Subjective Notes: Conditional Voluntary Healthcare Proxy: No Guardianship: No Medical Problems Affecting Mental Status: No Interim History: Discussed increasing HS Olanzapine vs adding a.m. dose. Pt prefers HS consolidation. Will increase to 10 mg. Also reports some breakthrough sx when going to bed in the form of feeling agitated. Overall feeling improved, on track and working things out he reports. Physical therapy ordered for gait weakness (spinal surgery 01/25). Anxious about going to [facility]. Apprehensive as to when they will have a bed. Medication Compliance: Yes Side effects from medications: No Attending Groups: Yes Review of Systems Acute medical concerns: No Mental Status Exam Mental Status Exam Patient Appearance: Appropriate Patient Orientation: Person, Place, Time and Situation Level of Consciousness: Alert Patient Behavior: Talkative, Anxious, Distractible and Good Eye Contact Mood Description: Apprehensive Affect Description: Apprehensive Patient Cognition Impaired: No Ability to Follow Directions: Good Speech Pattern: Spontaneous Speech Memory Description: Episodic Impaired Diagnostics Vital Signs (24Hr): Vital Signs - 24 hr 05/19/23 19:40 05/20/23 09:05 Temperature 98.2 F 97.9 F Pulse Rate 99 94 Respiratory Rate 18 Blood Pressure 126/75 129/70 Pulse Oximetry 96 Oxygen Delivery Method Room Air BMI result Body Mass Index 31.9 Labs 05/15/23 07:19 05/15/23 07:19 Labs: Laboratory Results - last 48 hr 05/18/23 14:42 COVID-19 (BREONNA) Negative COVID-19 Clin Com See Note Medications Medications Current Medications Acetaminophen (Acetaminophen 325 Mg Tablet) 650 mg PO Q6H PRN PRN Reason: Headache/Pain Mild Scale (1-3) Last Admin: 05/18/23 17:48 Dose: 650 mg Al Hydroxide/Mg Hydroxide (Magnesium Hydrox/Alum Hydrox 30 Ml Oral.Susp) 30 ml PO Q6H PRN PRN Reason: Heartburn/Nausea Last Admin: 05/16/23 20:47 Dose: 30 ml Bisacodyl (Bisacodyl 5 Mg Tablet.) 5 mg PO DAILY LENNY Last Admin: 05/20/23 08:56 Dose: 5 mg Bisacodyl (Bisacodyl 5 Mg Tablet.) 10 mg PO DAILY PRN PRN Reason: Constipation Divalproex Sodium (Divalproex Sodium Er 500 Mg Tab.Er.24h) 1,500 mg PO BEDTIME [facility] Last Admin: 05/19/23 22:04 Dose: 1,500 mg Guaifenesin/Dextromethorphan (Guaifenesin Dm 200/20/10 Ml 10 Ml Syrup) 10 ml PO Q6H [facility] Last Admin: 05/20/23 06:33 Dose: 10 ml Ibuprofen (Ibuprofen 600 Mg Tablet) 600 mg PO Q6H PRN PRN Reason: Pain, Mild (Pain Scale 1-3) Last Admin: 05/20/23 08:56 Dose: 600 mg Lidocaine (Lidocaine 4 % Patch Adh..Patch) 2 patch TRANSDERMA DAILY [facility]; Protocol Last Admin: 05/20/23 08:58 Dose: Not Given Magnesium Hydroxide (Milk Of Magnesia 30 Ml Oral.Susp) 30 ml PO DAILY PRN PRN Reason: Constipation Last Admin: 05/11/23 20:48 Dose: 30 ml Multivitamins/Vitamin C (Multivitamin Tablet) 1 tab PO DAILY [facility] Last Admin: 05/20/23 08:56 Dose: 1 tab Nicotine (Nicotine 21 Mg Patch.Td24) 21 mg TRANSDERMA DAILY PRN PRN Reason: smoking cessation Nicotine Polacrilex (Nicotine Polacrilex 2 Mg Gum) 4 mg BUCCAL Q2H PRN PRN Reason: Nicotine Cravings Last Admin: 05/19/23 19:16 Dose: 4 mg Olanzapine (Olanzapine 5 Mg Tablet) 5 mg PO TID PRN PRN Reason: agitation Last Admin: 05/14/23 23:24 Dose: 5 mg Olanzapine (Olanzapine 5 Mg Tablet) 5 mg PO BID [facility] Polyethylene Glycol (Polyethylene Glycol 3350 17 Gm Powd.Pack) 17 gm PO DAILY PRN PRN Reason: Constipation Last Admin: 05/12/23 13:06 Dose: 17 gm Tamsulosin HCl (Tamsulosin Hcl 0.4 Mg Capsule) 0.4 mg PO DAILY [facility] Last Admin: 05/20/23 08:55 Dose: 0.4 mg Trazodone HCl (Trazodone Hcl 100 Mg Tablet) 100 mg PO BEDTIME PRN PRN Reason: Insomnia Last Admin: 05/19/23 22:04 Dose: 100 mg Allergies Allergies Allergy/AdvReac Type Severity Reaction Status Date / Time No Known Allergies Allergy Verified 05/09/23 18:22 [No Known Allergies*] Assessment & Plan Assessment & Plan (1) Bipolar 1 disorder, depressed, moderate: Status: Acute Code(s): F31.32 - Bipolar disorder, current episode depressed, moderate (2) Cocaine dependence, uncomplicated: Status: Acute Code(s): F14.20 - Cocaine dependence, uncomplicated Plan 63 yo male, history of bipolar I disorder with coby, cocaine use disorder. To ER due to binge use of cocaine and overuse of Trazodone in an attempt to sleep/suicide attempt. Plan: Restart Depakote ER 500 mg HS MVI/Folic Acid B12,Folate, TSH, A1C Collateral contact Discharge planning-pt looking for a program out of the local area. 05/12/23 Increase Depakote to 1000 mg HS Olanzapine 5 mg hs 05/13/23 Lidocaine Patch for back x 2. Continue regime and plan of care. Tolerating medication changes 05/15/23 Awaiting placement acceptance Valproate 38.8. Dosage increase 05/16. Continue current regime 05/16 continue tx. pending acceptance to [facility]. 05/17 Continue current regime and plan of care. 05/20 Increase Olanzapine to 10 mg HS Patient educated on: medication risk/benefits and therapeutic strategies Informed Consent: understands Reason for continued inpatient stay Substantial Risk for: rapid decompensation Time Spent With Patient Time: Total time managing care of this patient today ____ minutes.
[2023-05-20] MEDS: Lidocaine 4 % Patch ADH..PATCH 2 PATCH TRANSDERMA (16:04)
[2023-05-20 18:00] VITALS: BP 128/72; PULSE 82; RESP 18; TEMP 36.6; O2SAT 96
[2023-05-20] MEDS: Divalproex Sodium ER 500 MG TAB.ER.24H 1500 MG PO (20:45)
[2023-05-21 07:50] VITALS: BP 104/70; PULSE 88; RESP 18; TEMP 36.8; O2SAT 97
[2023-05-21] MEDS: Lidocaine 4 % Patch ADH..PATCH 2 PATCH TRANSDERMA (08:45)
[2023-05-21] MEDS: Multivitamin TABLET 1 TAB PO (08:46)
[2023-05-21] MEDS: guaiFENesin DM 200/20/10 ML 10 ML SYRUP PO ×3 (08:47→18:43)
[2023-05-21] MEDS: Tamsulosin HCL 0.4 MG CAPSULE PO (08:47)
[2023-05-21] MEDS: bisacodyL 5 MG TABLET.DR PO (08:47)
--- NOTE | 2023-05-21 10:41 | HO.PSYCHPN ---
Subjective Subjective Date of Service: 05/21/23 Reason For Visit: Bipolar Disorder, Cocaine Use Disorder Subjective Notes: Conditional Voluntary Interim History: Pt confused by my saying I was the doctor went into hx of back surgery and co back pain, then said he wanted a walker- as pain worsened last few days and that dr was going to change something before he came in but then he came into hospital- When clarified Iwas interested in his mental health, and that the back issue seemed like a longer standing issue- he reported he was fine mentally- denied current depression/si, or drug cravings Medication Compliance: Yes Side effects from medications: No Attending Groups: Yes Review of Systems Acute medical concerns: Yes back pain worsened in last few days- but seems to be walking around unit fine- no indication of need for a walker Medical Review of Systems: unchanged Mental Status Exam Mental Status Exam Patient Appearance: Unkempt Patient Orientation: Person, Place, Time and Situation Level of Consciousness: Drowsy Patient Behavior: Talkative Behavior Comments: seem to be looking for some ? of support around back issues- but then seem to dismiss psychiatric concerns Mood Description: Calm Affect Description: Labile (mild) Ability to Follow Directions: Good Speech Pattern: Rambling and Mumbled Hallucinations: None Thought Process: Distracted Thought Content: positive for Perseveration Judgement: Fair Diagnostics Vital Signs (24Hr): Vital Signs - 24 hr 05/20/23 18:00 05/21/23 07:50 Temperature 98 F 98.2 F Pulse Rate 82 88 Respiratory Rate 18 18 Blood Pressure 128/72 104/70 Pulse Oximetry 96 97 Oxygen Delivery Method Room Air Room Air BMI result Body Mass Index 31.9 Labs 05/15/23 07:19 05/15/23 07:19 Medications Medications Current Medications Acetaminophen (Acetaminophen 325 Mg Tablet) 650 mg PO Q6H PRN PRN Reason: Headache/Pain Mild Scale (1-3) Last Admin: 05/18/23 17:48 Dose: 650 mg Al Hydroxide/Mg Hydroxide (Magnesium Hydrox/Alum Hydrox 30 Ml Oral.Susp) 30 ml PO Q6H PRN PRN Reason: Heartburn/Nausea Last Admin: 05/16/23 20:47 Dose: 30 ml Bisacodyl (Bisacodyl 5 Mg Tablet.Dr) 5 mg PO DAILY [facility]ENNY Last Admin: 05/21/23 08:47 Dose: 5 mg Bisacodyl (Bisacodyl 5 Mg Tablet.Dr) 10 mg PO DAILY PRN PRN Reason: Constipation Divalproex Sodium (Divalproex Sodium Er 500 Mg Tab.Er.24h) 1,500 mg PO BEDTIME [facility] Last Admin: 05/20/23 20:45 Dose: 1,500 mg Guaifenesin/Dextromethorphan (Guaifenesin Dm 200/20/10 Ml 10 Ml Syrup) 10 ml PO Q6H [facility] Last Admin: 05/21/23 08:47 Dose: 10 ml Ibuprofen (Ibuprofen 600 Mg Tablet) 600 mg PO Q6H PRN PRN Reason: Pain, Mild (Pain Scale 1-3) Last Admin: 05/20/23 16:04 Dose: 600 mg Lidocaine (Lidocaine 4 % Patch Adh..Patch) 2 patch TRANSDERMA DAILY [facility]; Protocol Last Admin: 05/21/23 08:45 Dose: 2 patch Magnesium Hydroxide (Milk Of Magnesia 30 Ml Oral.Susp) 30 ml PO DAILY PRN PRN Reason: Constipation Last Admin: 05/11/23 20:48 Dose: 30 ml Multivitamins/Vitamin C (Multivitamin Tablet) 1 tab PO DAILY [facility] Last Admin: 05/21/23 08:46 Dose: 1 tab Nicotine (Nicotine 21 Mg Patch.Td24) 21 mg TRANSDERMA DAILY PRN PRN Reason: smoking cessation Nicotine Polacrilex (Nicotine Polacrilex 2 Mg Gum) 4 mg BUCCAL Q2H PRN PRN Reason: Nicotine Cravings Last Admin: 05/19/23 19:16 Dose: 4 mg Olanzapine (Olanzapine 5 Mg Tablet) 5 mg PO TID PRN PRN Reason: agitation Last Admin: 05/14/23 23:24 Dose: 5 mg Olanzapine (Olanzapine 10 Mg Tablet) 10 mg PO BEDTIME [facility] Polyethylene Glycol (Polyethylene Glycol 3350 17 Gm Powd.Pack) 17 gm PO DAILY PRN PRN Reason: Constipation Last Admin: 05/12/23 13:06 Dose: 17 gm Tamsulosin HCl (Tamsulosin Hcl 0.4 Mg Capsule) 0.4 mg PO DAILY [facility] Last Admin: 05/21/23 08:47 Dose: 0.4 mg Trazodone HCl (Trazodone Hcl 100 Mg Tablet) 100 mg PO BEDTIME PRN PRN Reason: Insomnia Last Admin: 05/19/23 22:04 Dose: 100 mg Allergies Allergies Allergy/AdvReac Type Severity Reaction Status Date / Time No Known Allergies Allergy Verified 05/09/23 18:22 [No Known Allergies*] Assessment & Plan Assessment & Plan (1) Bipolar 1 disorder, depressed, moderate: Status: Acute Code(s): F31.32 - Bipolar disorder, current episode depressed, moderate (2) Cocaine dependence, uncomplicated: Status: Acute Code(s): F14.20 - Cocaine dependence, uncomplicated Plan 63 yo male, history of bipolar I disorder with coby, cocaine use disorder. To ER due to binge use of cocaine and overuse of Trazodone in an attempt to sleep/suicide attempt. Plan: Restart Depakote ER 500 mg HS MVI/Folic Acid B12,Folate, TSH, A1C Collateral contact Discharge planning-pt looking for a program out of the local area. 05/12/23 Increase Depakote to 1000 mg HS Olanzapine 5 mg hs 05/13/23 Lidocaine Patch for back x 2. Continue regime and plan of care. Tolerating medication changes 05/15/23 Awaiting placement acceptance Valproate 38.8. Dosage increase 05/16. Continue current regime 05/16 continue tx. pending acceptance to [facility]. 05/17 Continue current regime and plan of care. 05/20 Increase Olanzapine to 10 mg HS 05/21 CTP referred back to outpatien around back issues Patient educated on: medical condition Informed Consent: further education needed Reason for continued inpatient stay Substantial Risk for: rapid decompensation Time Spent With Patient Time: Total time managing care of this patient today ____ minutes.
--- NOTE | 2023-05-21 12:44 | PC.NURSE ---
Pt requested walker as he is having an increase in back and hip pain since discontinuing use. Walker given, pt placed on 5 minute safety checks for equipment. Charge (AC) aware.
[2023-05-21] MEDS: Ibuprofen 600 MG TABLET PO (16:52)
[2023-05-21 21:45] VITALS: BP 123/72; PULSE 94; RESP 18; TEMP 37.2
[2023-05-21] MEDS: Divalproex Sodium ER 500 MG TAB.ER.24H 1500 MG PO (21:45)
[2023-05-21] MEDS: traZODone HCL 100 MG TABLET PO (21:45)
[2023-05-21] MEDS: OLANZapine 10 MG TABLET PO (21:46)
[2023-05-22] MEDS: guaiFENesin DM 200/20/10 ML 10 ML SYRUP PO ×4 (02:06→18:34)
[2023-05-22 08:11] VITALS: BP 132/83; PULSE 80; RESP 16; TEMP 36.4; O2SAT 96
[2023-05-22] MEDS: Tamsulosin HCL 0.4 MG CAPSULE PO (08:28)
[2023-05-22] MEDS: Multivitamin TABLET 1 TAB PO (08:28)
[2023-05-22] MEDS: bisacodyL 5 MG TABLET.DR PO (08:28)
[2023-05-22] MEDS: Ibuprofen 600 MG TABLET PO (08:28)
--- NOTE | 2023-05-22 11:31 | HO.PSYCHPN ---
Subjective Subjective Date of Service: 05/22/23 Reason For Visit: Bipolar Disorder, Cocaine Use Disorder Subjective Notes: Conditional Voluntary Interim History: 63 yo HM with problems with his drug dealer- describe convoluted story in which he is being harrased/stalked by this latrice- who accompanies him to get his ssi check monthly? - He says when he is on his med /depakote he is fine but on dc doesn't take consistently - and ends up using - unclear how much insight he actually has into this as his TP are a bit disorganized though that may be [place] Citizen as second language. Medication Compliance: Yes Side effects from medications: No Attending Groups: Yes Review of Systems Acute medical concerns: No Review of Systems: ongoing back pain/mild gait difficulty- mostly refusing to use walker - Mental Status Exam Mental Status Exam Narrative: up and engaged, less irritable or odd with provider somewhat hard to understand or follow at times Patient Appearance: Unkempt Patient Orientation: Person, Place, Time and Situation Level of Consciousness: Awake Patient Behavior: Appropriate and Cooperative Mood Description: Calm Affect Description: Apprehensive Ability to Follow Directions: Fair Speech Pattern: Garbled, Rambling, Mumbled and Poor Articulation Delusions: Present (? or could be real) Thought Process: Distracted Thought Content: positive for Perseveration and positive for Disorganized Depressive Symptoms: Increased Anxiety and Back Pain Judgement: Fair Diagnostics Vital Signs (24Hr): Vital Signs - 24 hr 05/21/23 21:45 05/22/23 08:11 Temperature 98.9 F 97.6 F Pulse Rate 94 80 Respiratory Rate 18 16 Blood Pressure 123/72 132/83 Pulse Oximetry 96 Oxygen Delivery Method Room Air BMI result Body Mass Index 31.9 Labs 05/15/23 07:19 05/15/23 07:19 Medications Medications Current Medications Acetaminophen (Acetaminophen 325 Mg Tablet) 650 mg PO Q6H PRN PRN Reason: Headache/Pain Mild Scale (1-3) Last Admin: 05/18/23 17:48 Dose: 650 mg Al Hydroxide/Mg Hydroxide (Magnesium Hydrox/Alum Hydrox 30 Ml Oral.Susp) 30 ml PO Q6H PRN PRN Reason: Heartburn/Nausea Last Admin: 05/16/23 20:47 Dose: 30 ml Bisacodyl (Bisacodyl 5 Mg Tablet.Dr) 5 mg PO DAILY [facility]ENNY Last Admin: 05/22/23 08:28 Dose: 5 mg Bisacodyl (Bisacodyl 5 Mg Tablet.Dr) 10 mg PO DAILY PRN PRN Reason: Constipation Divalproex Sodium (Divalproex Sodium Er 500 Mg Tab.Er.24h) 1,500 mg PO BEDTIME [facility] Last Admin: 05/21/23 21:45 Dose: 1,500 mg Guaifenesin/Dextromethorphan (Guaifenesin Dm 200/20/10 Ml 10 Ml Syrup) 10 ml PO Q6H [facility] Last Admin: 05/22/23 06:01 Dose: 10 ml Ibuprofen (Ibuprofen 600 Mg Tablet) 600 mg PO Q6H PRN PRN Reason: Pain, Mild (Pain Scale 1-3) Last Admin: 05/22/23 08:28 Dose: 600 mg Lidocaine (Lidocaine 4 % Patch Adh..Patch) 2 patch TRANSDERMA DAILY [facility]; Protocol Last Admin: 05/22/23 08:29 Dose: Not Given Magnesium Hydroxide (Milk Of Magnesia 30 Ml Oral.Susp) 30 ml PO DAILY PRN PRN Reason: Constipation Last Admin: 05/11/23 20:48 Dose: 30 ml Multivitamins/Vitamin C (Multivitamin Tablet) 1 tab PO DAILY [facility] Last Admin: 05/22/23 08:28 Dose: 1 tab Nicotine (Nicotine 21 Mg Patch.Td24) 21 mg TRANSDERMA DAILY PRN PRN Reason: smoking cessation Nicotine Polacrilex (Nicotine Polacrilex 2 Mg Gum) 4 mg BUCCAL Q2H PRN PRN Reason: Nicotine Cravings Last Admin: 05/19/23 19:16 Dose: 4 mg Olanzapine (Olanzapine 5 Mg Tablet) 5 mg PO TID PRN PRN Reason: agitation Last Admin: 05/14/23 23:24 Dose: 5 mg Olanzapine (Olanzapine 10 Mg Tablet) 10 mg PO BEDTIME [facility] Last Admin: 05/22/23 07:44 Dose: Not Given Polyethylene Glycol (Polyethylene Glycol 3350 17 Gm Powd.Pack) 17 gm PO DAILY PRN PRN Reason: Constipation Last Admin: 05/12/23 13:06 Dose: 17 gm Tamsulosin HCl (Tamsulosin Hcl 0.4 Mg Capsule) 0.4 mg PO DAILY [facility] Last Admin: 05/22/23 08:28 Dose: 0.4 mg Trazodone HCl (Trazodone Hcl 100 Mg Tablet) 100 mg PO BEDTIME PRN PRN Reason: Insomnia Last Admin: 05/21/23 21:45 Dose: 100 mg Allergies Allergies Allergy/AdvReac Type Severity Reaction Status Date / Time No Known Allergies Allergy Verified 05/09/23 18:22 [No Known Allergies*] Assessment & Plan Assessment & Plan (1) Bipolar 1 disorder, depressed, moderate: Status: Acute Code(s): F31.32 - Bipolar disorder, current episode depressed, moderate (2) Cocaine dependence, uncomplicated: Status: Acute Code(s): F14.20 - Cocaine dependence, uncomplicated Plan 63 yo male, history of bipolar I disorder with coby, cocaine use disorder. To ER due to binge use of cocaine and overuse of Trazodone in an attempt to sleep/suicide attempt. Plan: Restart Depakote ER 500 mg HS MVI/Folic Acid B12,Folate, TSH, A1C Collateral contact Discharge planning-pt looking for a program out of the local area. 05/12/23 Increase Depakote to 1000 mg HS Olanzapine 5 mg hs 05/13/23 Lidocaine Patch for back x 2. Continue regime and plan of care. Tolerating medication changes 05/15/23 Awaiting placement acceptance Valproate 38.8. Dosage increase 05/16. Continue current regime 05/16 continue tx. pending acceptance to [facility]. 05/17 Continue current regime and plan of care. 05/20 Increase Olanzapine to 10 mg HS 05/21 CTP referred back to outpatien around back issues 05/22 - check depakote level tomorrow - Patient educated on: other (lab) Informed Consent: understands Reason for continued inpatient stay Substantial Risk for: harm to others and rapid decompensation Time Spent With Patient Time: Total time managing care of this patient today ____ minutes.
[2023-05-22] MEDS: Nicotine Polacrilex 2 MG GUM 4 MG BUCCAL (14:00)
[2023-05-22 18:14] VITALS: BP 123/77; PULSE 92; TEMP 36.6
[2023-05-22] MEDS: Lidocaine 4 % Patch ADH..PATCH 2 PATCH TRANSDERMA (20:16)
[2023-05-22] MEDS: traZODone HCL 100 MG TABLET PO (20:22)
[2023-05-22] MEDS: Divalproex Sodium ER 500 MG TAB.ER.24H 1500 MG PO (20:22)
[2023-05-22] MEDS: OLANZapine 10 MG TABLET PO (20:22)
[2023-05-23 07:45] VITALS: BP 137/76; PULSE 79; RESP 20; TEMP 36.9; O2SAT 97
[2023-05-23] MEDS: Multivitamin TABLET 1 TAB PO (08:37)
[2023-05-23] MEDS: Ibuprofen 600 MG TABLET PO ×2 (08:37→20:47)
[2023-05-23] MEDS: Tamsulosin HCL 0.4 MG CAPSULE PO (08:37)
[2023-05-23 09:05] LABS: MANUAL DIFF FLAG NO
[2023-05-23 09:18] LABS: Basophils Absolute Auto 0.1 X10*3/uL (0.0-0.2); Basophils Percent Auto 0.7 % (0-2); Eosinophils Absolute Auto 0.3 X10*3/uL (0.0-0.4); Eosinophils Percent Auto 3.1 % (0-4); Hematocrit 47.7 % (42.0-52.0); Hemoglobin 15.8 g/dl (14.0-18.0); Imm Gran Abs Auto 0.08 X10*3/uL (0.00-0.03); Imm Gran Pct Auto 0.9 % (0.0-0.4); Lymphocytes Absolute Auto 2.8 X10*3/uL (1.2-4.9); Lymphocytes Percent Auto 31.5 % (20-40); Mean Corpuscular HGB Conc 33.1 g/dl (31.0-36.0); Mean Corpuscular Hemoglobin 29.8 pg (27.0-33.0); Mean Platelet Volume 9.2 fL (9.4-12.4); Monocytes Absolute Auto 1.3 X10*3/uL (0.1-1.2); Monocytes Percent Auto 14.7 % (2-11); Neutrophils Absolute Auto 4.4 x10*3/uL (2.0-8.3); Neutrophils Percent Auto 49.1 % (45-73); Platelet Count 281 X10*3/uL (160-400); Red Cell Distribution Width 13.4 % (11.0-16.0); White Blood Count 8.9 X10*3/uL (4.8-10.8)
[2023-05-23 09:25] LABS: Valproate 53.7 mcg/mL (50.0-100.0)
[2023-05-23 09:26] LABS: Valproate 53.2 mcg/mL (50.0-100.0)
[2023-05-23 09:30] LABS: Alanine Aminotransferase 19 U/L (0-40); Albumin Level 3.8 g/dL (3.5-5.0); Alkaline Phosphatase 52 U/L (39-117); Anion Gap 13 (12-20); Aspartate Amino Transferase 18 U/L (5-37); Bilirubin Total 0.3 mg/dL (0.0-1.0); Blood Urea Nitrogen 7 mg/dL (9-16); Calcium 9.1 mg/dL (8.4-10.2); Carbon Dioxide 25 mmol/L (22-29); Chloride 106 mmol/L (96-108); Creatinine Clr Calc Pharmacy 96.8; Estimated Glomerular Filt Rate > 60; Glucose Random 127 mg/dL (60-115); Potassium 4.3 mmol/L (3.3-5.1); Sodium 140 mmol/L (135-145); Total Protein 6.5 g/dL (6.5-8.0)
--- NOTE | 2023-05-23 13:34 | P.PNPSI_ITS ---
Subjective Subjective Date of Service: 05/23/23 Reason For Visit: Bipolar Disorder, Cocaine Use Disorder Subjective Notes: Conditional Voluntary Interim History: Reviewed in team and . Patient reports feeling upset because I found out my son is depressed . Patient reports he is hoping to get into a program soon because this place has too much drama and is like high school . Patient is hopeful and future oriented. Denies SI/HI/VH/AH. Medication Compliance: Yes Side effects from medications: No Attending Groups: Yes Review of Systems Constitutional: Reports as per HPI Eyes: Reports as per HPI Reports as per HPI Cardiovascular: Reports as per HPI Respiratory: Reports as per HPI Gastrointestinal: Reports as per HPI Genitourinary: Reports as per HPI Musculoskeletal: Reports as per HPI Skin/Breast: Reports as per HPI Reports as per HPI Psychiatric: Reports as per HPI Endocrine: Reports as per HPI Hematologic/Lymphatic: Reports as per HPI Allergic/Immunologic: Reports as per HPI Mental Status Exam Mental Status Exam Narrative: Pt is alert and oriented; behavior is cooperative, friendly and calm; dressed in casual attire; mood is described as upset ; eye contact appropriate; Speech is normal rate, volume and prosody and not pressured; no psychomotor agitation/retardation present; thought process is organized and goal directed; Thought content is on tx; otherwise pertinent to relevant topics and without any delusional content, paranoid ideations or grandiosity; denies SI/HI. There is no evidence of perceptual disturbance. Patients insight and judgment are poor but improving. Diagnostics Vital Signs (24Hr): Vital Signs - 24 hr 05/22/23 18:14 05/23/23 07:45 Temperature 97.8 F 98.5 F Pulse Rate 92 79 Respiratory Rate 20 Blood Pressure 123/77 137/76 Pulse Oximetry 97 Oxygen Delivery Method Room Air BMI result Body Mass Index 31.9 Labs 05/23/23 08:27 05/23/23 08:27 Labs: Laboratory Results - last 48 hr 05/23/23 05/23/23 08:27 08:27 WBC 8.9 RBC 5.30 Hgb 15.8 Hct 47.7 MCV 90.0 MCH 29.8 MCHC 33.1 RDW 13.4 Plt Count 281 MPV 9.2 L Immature Gran % (Auto) 0.9 H Neut % (Auto) 49.1 Lymph % (Auto) 31.5 Lake % (Auto) 14.7 H Eos % (Auto) 3.1 Baso % (Auto) 0.7 Lymph # (Auto) 2.8 Lake # (Auto) 1.3 H Eos # (Auto) 0.3 Baso # (Auto) 0.1 Abs Immat Gran (auto) 0.08 H Absolute Neuts (auto) 4.4 Absolute Nucleated RBC 0.000 Nucleated RBC % (auto) 0.0 Sodium 140 Potassium 4.3 Chloride 106 Carbon Dioxide 25 Anion Gap 13 BUN 7 L Creatinine 0.84 Estim Creat Clear Calc 96.8 Estimated GFR > 60 Random Glucose 127 H Calcium 9.1 Total Bilirubin 0.3 AST 18 ALT 19 Alkaline Phosphatase 52 Total Protein 6.5 Albumin 3.8 Valproic Acid 53.2 53.7 Medications Medications Current Medications Acetaminophen (Acetaminophen 325 Mg Tablet) 650 mg PO Q6H PRN PRN Reason: Headache/Pain Mild Scale (1-3) Last Admin: 05/18/23 17:48 Dose: 650 mg Al Hydroxide/Mg Hydroxide (Magnesium Hydrox/Alum Hydrox 30 Ml Oral.Susp) 30 ml PO Q6H PRN PRN Reason: Heartburn/Nausea Last Admin: 05/16/23 20:47 Dose: 30 ml Bisacodyl (Bisacodyl 5 Mg Tablet.) 5 mg PO DAILY [facility] Last Admin: 05/23/23 09:07 Dose: Not Given Bisacodyl (Bisacodyl 5 Mg Tablet.Dr) 10 mg PO DAILY PRN PRN Reason: Constipation Divalproex Sodium (Divalproex Sodium Er 500 Mg Tab.Er.24h) 1,500 mg PO BEDTIME [facility] Last Admin: 05/22/23 20:22 Dose: 1,500 mg Guaifenesin/Dextromethorphan (Guaifenesin Dm 200/20/10 Ml 10 Ml Syrup) 10 ml PO Q6H [facility] Last Admin: 05/23/23 08:37 Dose: Not Given Ibuprofen (Ibuprofen 600 Mg Tablet) 600 mg PO Q6H PRN PRN Reason: Pain, Mild (Pain Scale 1-3) Last Admin: 05/23/23 08:37 Dose: 600 mg Lidocaine (Lidocaine 4 % Patch Adh..Patch) 2 patch TRANSDERMA DAILY [facility]; Protocol Last Admin: 05/23/23 09:08 Dose: Not Given Magnesium Hydroxide (Milk Of Magnesia 30 Ml Oral.Susp) 30 ml PO DAILY PRN PRN Reason: Constipation Last Admin: 05/11/23 20:48 Dose: 30 ml Multivitamins/Vitamin C (Multivitamin Tablet) 1 tab PO DAILY [facility] Last Admin: 05/23/23 08:37 Dose: 1 tab Nicotine (Nicotine 21 Mg Patch.Td24) 21 mg TRANSDERMA DAILY PRN PRN Reason: smoking cessation Nicotine Polacrilex (Nicotine Polacrilex 2 Mg Gum) 4 mg BUCCAL Q2H PRN PRN Reason: Nicotine Cravings Last Admin: 05/22/23 14:00 Dose: 4 mg Olanzapine (Olanzapine 5 Mg Tablet) 5 mg PO TID PRN PRN Reason: agitation Last Admin: 05/14/23 23:24 Dose: 5 mg Olanzapine (Olanzapine 10 Mg Tablet) 10 mg PO BEDTIME [facility] Last Admin: 05/22/23 20:22 Dose: 10 mg Polyethylene Glycol (Polyethylene Glycol 3350 17 Gm Powd.Pack) 17 gm PO DAILY PRN PRN Reason: Constipation Last Admin: 05/12/23 13:06 Dose: 17 gm Tamsulosin HCl (Tamsulosin Hcl 0.4 Mg Capsule) 0.4 mg PO DAILY [facility] Last Admin: 05/23/23 08:37 Dose: 0.4 mg Trazodone HCl (Trazodone Hcl 100 Mg Tablet) 100 mg PO BEDTIME PRN PRN Reason: Insomnia Last Admin: 05/22/23 20:22 Dose: 100 mg Allergies Allergies Allergy/AdvReac Type Severity Reaction Status Date / Time No Known Allergies Allergy Verified 05/09/23 18:22 [No Known Allergies*] Assessment & Plan Assessment & Plan (1) Bipolar 1 disorder, depressed, moderate: Status: Acute Code(s): F31.32 - Bipolar disorder, current episode depressed, moderate (2) Cocaine dependence, uncomplicated: Status: Acute Code(s): F14.20 - Cocaine dependence, uncomplicated Plan 63 yo male, history of bipolar I disorder with coby, cocaine use disorder. To ER due to binge use of cocaine and overuse of Trazodone in an attempt to sleep/suicide attempt. Plan: Restart Depakote ER 500 mg HS MVI/Folic Acid B12,Folate, TSH, A1C Collateral contact Discharge planning-pt looking for a program out of the local area. 05/12/23 Increase Depakote to 1000 mg HS Olanzapine 5 mg hs 05/13/23 Lidocaine Patch for back x 2. Continue regime and plan of care. Tolerating medication changes 05/15/23 Awaiting placement acceptance Valproate 38.8. Dosage increase 05/16. Continue current regime 05/16 continue tx. pending acceptance to [facility]. 05/17 Continue current regime and plan of care. 05/20 Increase Olanzapine to 10 mg HS 05/21 CTP referred back to outpatien around back issues 05/22 - check depakote level tomorrow - 05/23: Patient reports feeling upset because I found out my son is depressed . Patient reports he is hoping to get into a program soon because this place has too much drama and is like high school . Patient is hopeful and future oriented. Denies SI/HI/VH/AH. [place]ate 53.7 Patient educated on: diagnosis, medication risk/benefits, substance abuse and therapeutic strategies Informed Consent: understands Reason for continued inpatient stay Substantial Risk for: med/psych decompensation Time Spent With Patient Time: Total time managing care of this patient today _30___ minutes.
[2023-05-23] MEDS: Lidocaine 4 % Patch ADH..PATCH 2 PATCH TRANSDERMA (13:54)
[2023-05-23] MEDS: Acetaminophen 325 MG TABLET 650 MG PO (13:56)
[2023-05-23 18:25] VITALS: BP 149/86; PULSE 94; RESP 18; TEMP 36.4; O2SAT 96
[2023-05-23] MEDS: Divalproex Sodium ER 500 MG TAB.ER.24H 1500 MG PO (20:44)
[2023-05-23] MEDS: OLANZapine 5 MG TABLET PO (20:44)
[2023-05-23] MEDS: OLANZapine 10 MG TABLET PO (20:44)
[2023-05-23] MEDS: traZODone HCL 100 MG TABLET PO (20:44)
[2023-05-23] MEDS: guaiFENesin DM 200/20/10 ML 10 ML SYRUP PO (20:45)
[2023-05-24] MEDS: guaiFENesin DM 200/20/10 ML 10 ML SYRUP PO ×3 (05:17→20:56)
[2023-05-24 08:15] VITALS: BP 133/88; PULSE 88; RESP 16; TEMP 36.4; O2SAT 97
[2023-05-24] MEDS: bisacodyL 5 MG TABLET.DR PO (08:17)
[2023-05-24] MEDS: Tamsulosin HCL 0.4 MG CAPSULE PO (08:17)
[2023-05-24] MEDS: Multivitamin TABLET 1 TAB PO (08:17)
--- NOTE | 2023-05-24 12:20 | HO.PSYCHPN ---
Subjective Subjective Date of Service: 05/24/23 Reason For Visit: Bipolar Disorder, Cocaine Use Disorder Subjective Notes: Conditional Voluntary Interim History: Reviewed in team and . Patient presents friendly and bright today. Patient stated, I feel better today because I found out my son went to [facility] and is doing better . Patient reports he continues to be hopeful about getting into program. Social with peers and staff. Medication Compliance: Yes Side effects from medications: No Attending Groups: Yes Review of Systems Constitutional: Reports as per HPI Eyes: Reports as per HPI Reports as per HPI Cardiovascular: Reports as per HPI Respiratory: Reports as per HPI Gastrointestinal: Reports as per HPI Genitourinary: Reports as per HPI Musculoskeletal: Reports as per HPI Skin/Breast: Reports as per HPI Reports as per HPI Psychiatric: Reports as per HPI Endocrine: Reports as per HPI Hematologic/Lymphatic: Reports as per HPI Allergic/Immunologic: Reports as per HPI Mental Status Exam Mental Status Exam Narrative: Pt is alert and oriented; behavior is cooperative, friendly and calm; dressed in casual attire; mood is described as better ; eye contact appropriate; Speech is normal rate, volume and prosody and not pressured; no psychomotor agitation/retardation present; thought process is organized and goal directed; Thought content is on tx; otherwise pertinent to relevant topics and without any delusional content, paranoid ideations or grandiosity; denies SI/HI. There is no evidence of perceptual disturbance. Patients insight and judgment are fair. Behavior Comments: seem to be looking for some ? of support around back issues- but then seem to dismiss psychiatric concerns Diagnostics Vital Signs (24Hr): Vital Signs - 24 hr 05/23/23 18:25 05/24/23 08:15 Temperature 97.5 F 97.6 F Pulse Rate 94 88 Respiratory Rate 18 16 Blood Pressure 149/86 H 133/88 Pulse Oximetry 96 97 Oxygen Delivery Method Room Air Room Air BMI result Body Mass Index 31.9 Labs 05/23/23 08:27 05/23/23 08:27 Labs: Laboratory Results - last 48 hr 05/23/23 05/23/23 08:27 08:27 WBC 8.9 RBC 5.30 Hgb 15.8 Hct 47.7 MCV 90.0 MCH 29.8 MCHC 33.1 RDW 13.4 Plt Count 281 MPV 9.2 L Immature Gran % (Auto) 0.9 H Neut % (Auto) 49.1 Lymph % (Auto) 31.5 Mcculloch % (Auto) 14.7 H Eos % (Auto) 3.1 Baso % (Auto) 0.7 Lymph # (Auto) 2.8 Mcculloch # (Auto) 1.3 H Eos # (Auto) 0.3 Baso # (Auto) 0.1 Abs Immat Gran (auto) 0.08 H Absolute Neuts (auto) 4.4 Absolute Nucleated RBC 0.000 Nucleated RBC % (auto) 0.0 Sodium 140 Potassium 4.3 Chloride 106 Carbon Dioxide 25 Anion Gap 13 BUN 7 L Creatinine 0.84 Estim Creat Clear Calc 96.8 Estimated GFR > 60 Random Glucose 127 H Calcium 9.1 Total Bilirubin 0.3 AST 18 ALT 19 Alkaline Phosphatase 52 Total Protein 6.5 Albumin 3.8 Valproic Acid 53.2 53.7 Medications Medications Current Medications Acetaminophen (Acetaminophen 325 Mg Tablet) 650 mg PO Q6H PRN PRN Reason: Headache/Pain Mild Scale (1-3) Last Admin: 05/23/23 13:56 Dose: 650 mg Al Hydroxide/Mg Hydroxide (Magnesium Hydrox/Alum Hydrox 30 Ml Oral.Susp) 30 ml PO Q6H PRN PRN Reason: Heartburn/Nausea Last Admin: 05/16/23 20:47 Dose: 30 ml Bisacodyl (Bisacodyl 5 Mg Tablet.Dr) 5 mg PO DAILY [facility] Last Admin: 05/24/23 08:17 Dose: 5 mg Bisacodyl (Bisacodyl 5 Mg Tablet.Dr) 10 mg PO DAILY PRN PRN Reason: Constipation Divalproex Sodium (Divalproex Sodium Er 500 Mg Tab.Er.24h) 1,500 mg PO BEDTIME [facility] Last Admin: 05/23/23 20:44 Dose: 1,500 mg Guaifenesin/Dextromethorphan (Guaifenesin Dm 200/20/10 Ml 10 Ml Syrup) 10 ml PO Q6H [facility] Last Admin: 05/24/23 12:19 Dose: 10 ml Ibuprofen (Ibuprofen 600 Mg Tablet) 600 mg PO Q6H PRN PRN Reason: Pain, Mild (Pain Scale 1-3) Last Admin: 05/23/23 20:47 Dose: 600 mg Lidocaine (Lidocaine 4 % Patch Adh..Patch) 2 patch TRANSDERMA DAILY [facility]; Protocol Last Admin: 05/24/23 08:34 Dose: Not Given Magnesium Hydroxide (Milk Of Magnesia 30 Ml Oral.Susp) 30 ml PO DAILY PRN PRN Reason: Constipation Last Admin: 05/11/23 20:48 Dose: 30 ml Multivitamins/Vitamin C (Multivitamin Tablet) 1 tab PO DAILY [facility] Last Admin: 05/24/23 08:17 Dose: 1 tab Nicotine (Nicotine 21 Mg Patch.Td24) 21 mg TRANSDERMA DAILY PRN PRN Reason: smoking cessation Nicotine Polacrilex (Nicotine Polacrilex 2 Mg Gum) 4 mg BUCCAL Q2H PRN PRN Reason: Nicotine Cravings Last Admin: 05/22/23 14:00 Dose: 4 mg Olanzapine (Olanzapine 5 Mg Tablet) 5 mg PO TID PRN PRN Reason: agitation Last Admin: 05/23/23 20:44 Dose: 5 mg Olanzapine (Olanzapine 10 Mg Tablet) 10 mg PO BEDTIME [facility] Last Admin: 05/23/23 20:44 Dose: 10 mg Polyethylene Glycol (Polyethylene Glycol 3350 17 Gm Powd.Pack) 17 gm PO DAILY PRN PRN Reason: Constipation Last Admin: 05/12/23 13:06 Dose: 17 gm Tamsulosin HCl (Tamsulosin Hcl 0.4 Mg Capsule) 0.4 mg PO DAILY [facility] Last Admin: 05/24/23 08:17 Dose: 0.4 mg Trazodone HCl (Trazodone Hcl 100 Mg Tablet) 100 mg PO BEDTIME PRN PRN Reason: Insomnia Last Admin: 05/23/23 20:44 Dose: 100 mg Allergies Allergies Allergy/AdvReac Type Severity Reaction Status Date / Time No Known Allergies Allergy Verified 05/09/23 18:22 [No Known Allergies*] Assessment & Plan Assessment & Plan (1) Bipolar 1 disorder, depressed, moderate: Status: Acute Code(s): F31.32 - Bipolar disorder, current episode depressed, moderate (2) Cocaine dependence, uncomplicated: Status: Acute Code(s): F14.20 - Cocaine dependence, uncomplicated Plan 63 yo male, history of bipolar I disorder with coby, cocaine use disorder. To ER due to binge use of cocaine and overuse of Trazodone in an attempt to sleep/suicide attempt. Plan: Restart Depakote ER 500 mg HS MVI/Folic Acid B12,Folate, TSH, A1C Collateral contact Discharge planning-pt looking for a program out of the local area. 05/12/23 Increase Depakote to 1000 mg HS Olanzapine 5 mg hs 05/13/23 Lidocaine Patch for back x 2. Continue regime and plan of care. Tolerating medication changes 05/15/23 Awaiting placement acceptance Valproate 38.8. Dosage increase 05/16. Continue current regime 05/16 continue tx. pending acceptance to [facility]. 05/17 Continue current regime and plan of care. 05/20 Increase Olanzapine to 10 mg HS 05/21 CTP referred back to outpatien around back issues 05/22 - check depakote level tomorrow - 05/23: Patient reports feeling upset because I found out my son is depressed . Patient reports he is hoping to get into a program soon because this place has too much drama and is like high school . Patient is hopeful and future oriented. Denies SI/HI/VH/AH. Valporate 53.7 05/24: Patient presents friendly and bright today. Patient stated, I feel better today because I found out my son went to [facility] and is doing better . Patient reports he continues to be hopeful about getting into program. Social with peers and staff. Continue current tx plan. Patient educated on: diagnosis, medication risk/benefits and therapeutic strategies Informed Consent: understands Reason for continued inpatient stay Substantial Risk for: med/psych decompensation Time Spent With Patient Time: Total time managing care of this patient today _30___ minutes.
[2023-05-24] MEDS: Ibuprofen 600 MG TABLET PO (12:25)
[2023-05-24 18:00] VITALS: BP 146/87; PULSE 86; RESP 18; TEMP 36.9; O2SAT 96
[2023-05-24] MEDS: OLANZapine 10 MG TABLET PO (20:56)
[2023-05-24] MEDS: traZODone HCL 100 MG TABLET PO (20:56)
[2023-05-24] MEDS: Divalproex Sodium ER 500 MG TAB.ER.24H 1500 MG PO (20:56)
[2023-05-25 07:53] VITALS: BP 119/83; PULSE 95; RESP 16; TEMP 36.3; O2SAT 95
[2023-05-25] MEDS: Lidocaine 4 % Patch ADH..PATCH 2 PATCH TRANSDERMA (08:02)
[2023-05-25] MEDS: guaiFENesin DM 200/20/10 ML 10 ML SYRUP PO (08:03)
[2023-05-25] MEDS: Acetaminophen 325 MG TABLET 650 MG PO (08:04)
[2023-05-25] MEDS: bisacodyL 5 MG TABLET.DR PO (08:04)
[2023-05-25] MEDS: Tamsulosin HCL 0.4 MG CAPSULE PO (08:05)
[2023-05-25] MEDS: Multivitamin TABLET 1 TAB PO (08:05)
--- NOTE | 2023-05-25 09:35 | PM.PSYDC ---
DS: Providers Provider Date of Service: 05/25/23 Date of admission: 05/09/23 19:20 Primary care physician: Unknown Physician Consults: 05/11/23 11:11 Addiction Medicine Routine Consulting Provider: Addiction Covering Reason for consultation: Recovery coaching, pt request Has provider been notified: No DS: Diagnosis Discharge Diagnosis (1) Bipolar 1 disorder, depressed, moderate: Status: Acute (2) Cocaine dependence, uncomplicated: Status: Acute DS: Medications Discharge Medications Home Medications: Previous Rx's Medication Instructions Recorded bisacodyl 5 mg tablet,delayed 5 mg PO DAILY #30 tabs 05/25/23 release divalproex 500 mg tablet,extended 1,500 mg (3 x 500 mg) PO BEDTIME 05/25/23 release 24 hr #90 tabs ibuprofen 600 mg tablet 600 mg PO Q6H PRN Pain, Mild (Pain 05/25/23 Scale 1-3) #60 tabs lidocaine 4 % topical patch 2 patch transdermal DAILY #60 ea 05/25/23 (Lidocaine Pain Relief) olanzapine 10 mg tablet 10 mg PO BEDTIME #30 tabs 05/25/23 olanzapine 5 mg tablet 5 mg PO TID PRN agitation #90 tabs 05/25/23 tamsulosin 0.4 mg capsule 0.4 mg PO DAILY #30 caps 05/25/23 trazodone 100 mg tablet 100 mg PO BEDTIME PRN Insomnia #30 05/25/23 tabs Mental Status Exam Mental Status Exam Narrative: Pt is alert and oriented; behavior is cooperative, friendly and calm; dressed in casual attire; mood is described as better ; eye contact appropriate; Speech is normal rate, volume and prosody and not pressured; no psychomotor agitation/retardation present; thought process is organized and goal directed; Thought content is on tx; otherwise pertinent to relevant topics and without any delusional content, paranoid ideations or grandiosity; denies SI/HI. There is no evidence of perceptual disturbance. Patients insight and judgment are fair. Behavior Comments: seem to be looking for some ? of support around back issues- but then seem to dismiss psychiatric concerns Data Data Completed and Pending Completed studies during hospitalization [Text1]: 05/18/23 05/23/23 05/23/23 14:42 08:27 08:27 WBC 8.9 RBC 5.30 Hgb 15.8 Hct 47.7 MCV 90.0 MCH 29.8 MCHC 33.1 RDW 13.4 Plt Count 281 MPV 9.2 L Immature Gran % (Auto) 0.9 H Neut % (Auto) 49.1 Lymph % (Auto) 31.5 Lynn % (Auto) 14.7 H Eos % (Auto) 3.1 Baso % (Auto) 0.7 Lymph # (Auto) 2.8 Lynn # (Auto) 1.3 H Eos # (Auto) 0.3 Baso # (Auto) 0.1 Abs Immat Gran (auto) 0.08 H Absolute Neuts (auto) 4.4 Absolute Nucleated RBC 0.000 Nucleated RBC % (auto) 0.0 Sodium 140 Potassium 4.3 Chloride 106 Carbon Dioxide 25 Anion Gap 13 BUN 7 L Creatinine 0.84 Estim Creat Clear Calc 96.8 Estimated GFR > 60 Random Glucose 127 H Calcium 9.1 Total Bilirubin 0.3 AST 18 ALT 19 Alkaline Phosphatase 52 Total Protein 6.5 Albumin 3.8 Valproic Acid 53.2 53.7 COVID-19 (BREONNA) Negative COVID-19 Clin Com See Note 05/09/23 06:00 Urine clean catch - Urine leos top Urine Culture - Final Staphylococcus epidermidis DS: Summary Hospital Course Hospital Course: 63 yo male, history of bipolar disorder, cocaine use disorder to ER via EMS he believes due to binge cocaine use and overuse of Trazodone to assist with sleep and possibly as a suicide attempt. Pt reports a long history of addiction, beginning AA for alcohol dependence in 1991 and crack in the 1979's. 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 Today, he is somewhat tangential, and needed to be interviewed while resting in bed. He is scattered in history, however, does give this message. He currently believes that he needs to leave the area as he owes money to peers and believes his safety may be at risk. He discussed [facility] and encouraged tw to make contact with [facility] Kareem Shaffer (therapist), he will tell you what I need to do. I need to get away from this stuff . Pt also reports a history of bipolar disorder, type I with history of coby and current noncompliance with Valproate. Past Psychiatric History: Medication trials: Wellbutrin, Depakote, trazodone, took others, but does not recall the names. PHP in early . Has therapist, recently met with a psych prescriber through [facility] does not recall name. No IP hx PHP Oct [address] [facility] [place] Medical Evaluation Reviewed: Yes HOSPITAL COURSE On the unit, pt was admitted on a CV and placed on 15 minutes checks for safety. After reviewing risks, benefits and alternative treatment options, pt agreed to start olanzapine for mood and psychosis that tends to happen mostly when he uses cocaine. He was also started on depakote for impulsive, explosive behaviors with some mood lability (worsened with cocaine use). Pt presented as future oriented, looking forward to continue treatment for both substance use and mood disorder. Pt denied SI/HI. He was visible on the unit and attended assigned groups. There were on incidences of disruptive behaviors nor need for restraints. No signs of psychosis or delusions. Pt agreed to be referred to [facility] and transition on day of discharge to [facility]. Status at Discharge Cognitive/behavioral status at discharge: Pt with brighter, non labile affect. Future oriented NO SI/HI. No psychosis. No signs of aggression towards self or others. Functional status at discharge: independent ambulation Overall status at discharge: patient is progressing back to baseline Time Spent with Patient Time attestation: Total time managing care of this patient today ____ minutes. Time spent: Greater than 30 minutes Discharge Plan Discharge Anticipated Discharge Date/Time: 05/25/23 09:13 Patient Disposition: Home, Self-Care Discharge Diagnosis: Bipolar Disorder type 1 cocaine use disorder Referrals: Physician,Unknown J [Primary Care Provider] - 1 Week Discharge Medications: New ibuprofen 600 mg Tablet 600 mg PO Q6H PRN (Reason: Pain, Mild (Pain Scale 1-3)) Qty: 60 0RF bisacodyl 5 mg Tablet,Delayed Release (Dr/Ec) 5 mg PO DAILY Qty: 30 0RF lidocaine [Lidocaine Pain Relief] 4 % Adhesive Patch,Medicated 2 patch transdermal DAILY Qty: 60 0RF Protocol: Apply to: Apply to: back olanzapine 10 mg Tablet 10 mg PO BEDTIME Qty: 30 0RF tamsulosin 0.4 mg Capsule 0.4 mg PO DAILY Qty: 30 0RF trazodone 100 mg Tablet 100 mg PO BEDTIME PRN (Reason: Insomnia) Qty: 30 0RF divalproex 500 mg Tablet Extended Release 24 Hr 1,500 mg PO BEDTIME Qty: 90 0RF Discontinued tamsulosin [Flomax] 0.4 mg capsule 0.4 mg PO DAILY Qty: 30 0RF ibuprofen 600 mg tablet 600 mg PO Q6H PRN (Reason: pain) Qty: 20 0RF trazodone 100 mg tablet 100 mg PO BEDTIME bisacodyl 5 mg tablet,delayed release (DR/EC) 5 mg PO DAILY sildenafil 50 mg tablet 50 mg PO DAILY PRN (Reason: Sexual Activity) Discharge Orders: Discharge Order (Routine); Ordered 05/25/23 Ordered By: Maribel Landeros Diet: Regular diet Activity on Discharge: As tolerated Stand Alone Forms: Patient Portal Discharge page, Community Support Care Plan Goals: 1. Maintain mood 2. NO SI/HI 3. No signs of psychosis Health Concerns: Follow up with PCP Plan of Treatment: 1. Take medications as prescribed 2. Go to nearest ED or call 911 in event of emergency Assessment: Pt with brighter, non labile affect. No SI/HI. No signs of psychosis/delusions. No aggression towards self or others.
== END 2023-05-25 10:41 | disposition home or self-care (01) | DRG 885 ==
LOC: HO.ED 05-09 06:39 → HO.PM5 05-09 19:25
PROVIDERS: Clinical Nurse Specialist Psychiatric/Mental Health, Adult; Physician Assistant; Psychiatry & Neurology Psychiatry; Admitting Provider Psychiatry & Neurology Psychiatry; Emergency Provider Student in an Organized Health Care Education/Training Program; Responsible Provider Registered Nurse; Visit Provider Psychiatry & Neurology Psychiatry
DX: F31.32 Bipolar disorder, current episode depressed, moderate (principal); R45.851 Suicidal ideations; F14.20 Cocaine dependence, uncomplicated; F17.210 Nicotine dependence, cigarettes, uncomplicated; F10.21 Alcohol dependence, in remission; Z23 Encounter for immunization; Z71.6 Tobacco abuse counseling; Z20.822 Contact with and (suspected) exposure to COVID-19; Z91.51 Personal history of suicidal behavior; Z79.899 Other long term (current) drug therapy
CPT/HCPCS: 36415; 80053; 80061; 80143; 80164; 80179; 80307; 81001; 82550; 82607; 82746; 83036; 83735; 84100; 84443; 84484; 85025; 85610; 87086; 87088; 87186; 87635; 90686; 93005; 97161; 99285; J0696; S9485

== ENCOUNTER → 2023-05-09 19:20 | Outpatient (BNV) | payer OTHER, SELFPAY | PROVIDERS: Admitting Provider Psychiatry & Neurology Psychiatry; Emergency Provider Student in an Organized Health Care Education/Training Program; Visit Provider Clinical Nurse Specialist Psychiatric/Mental Health, Adult | DX: F31.32 Bipolar disorder, current episode depressed, moderate (principal); F14.20 Cocaine dependence, uncomplicated | CPT/HCPCS: 90792; 99231; 99232; 99239; 99499 ==

== ENCOUNTER 2023-10-14 16:31 | Outpatient (REF) | payer OTHER, SELFPAY | END 2023-10-14 16:32 | disposition home or self-care (01) | LOC: HO.HHCLNP 16:31 | PROVIDERS: Visit Provider General Practice | DX: R30.0 Dysuria (principal) | CPT/HCPCS: 87086; 87088; 87186 ==

== ENCOUNTER 2023-12-08 14:00 | Outpatient (RCR) | payer OTHER, SELFPAY | END 2024-01-31 08:46 | disposition home or self-care (01) | LOC: HO.PT 14:00 | PROVIDERS: PCP General Practice; Visit Provider General Practice | DX: M48.061 Spinal stenosis, lumbar region without neurogenic claudication (principal); M25.551 Pain in right hip | CPT/HCPCS: 97110; 97161; 97530; 97535 ==

== ENCOUNTER 2024-01-06 13:54 | Outpatient (REF) | payer OTHER, SELFPAY ==
[2024-01-06 15:01] LABS: Estimated Average Glucose 128 mg/dL; Hemoglobin A1c % 6.1 % (<6.0)
[2024-01-06 15:41] LABS: Alanine Aminotransferase 18 U/L (0-40); Albumin Level 4.2 g/dL (3.5-5.0); Alkaline Phosphatase 70 U/L (39-117); Anion Gap 15 (12-20); Aspartate Amino Transferase 24 U/L (5-37); Bilirubin Total 0.3 mg/dL (0.0-1.0); Blood Urea Nitrogen 14 mg/dL (9-16); Calcium 9.3 mg/dL (8.4-10.2); Carbon Dioxide 24 mmol/L (22-29); Chloride 102 mmol/L (96-108); Cholesterol 150 mg/dL (<200); Estimated Glomerular Filt Rate > 60; Glucose Random 149 mg/dL (60-115); HDL Cholesterol 35 mg/dL (>40); LDL Cholesterol Calculated 64 mg/dL (<100); Potassium 3.7 mmol/L (3.3-5.1); Sodium 137 mmol/L (135-145); Total Protein 7.1 g/dL (6.5-8.0); Triglycerides 256 mg/dL (<150)
[2024-01-07 03:53] LABS: HIV AB/AG Nonreactive (Nonreactive); HIV Num 1 0.04 S/CO (0.00-0.99); ~HepC Num1 0.09 S/CO (0.00-0.79); ~Hepatitis C Antibody Nonreactive (Nonreactive)
[2024-01-08 23:58] LABS: TS Negative Control Passed; TS Panel A 0; TS Panel B 1; TS Positive Control Passed; TSpotTB Negative (Negative)
== END 2024-01-06 13:55 | disposition home or self-care (01) ==
LOC: HO.LAB 13:54
PROVIDERS: PCP General Practice; Visit Provider General Practice
DX: Z11.4 Encounter for screening for human immunodeficiency virus [HIV] (principal); Z11.3 Encounter for screening for infections with a predominantly sexual mode of transmission; Z11.1 Encounter for screening for respiratory tuberculosis; Z02.1 Encounter for pre-employment examination; E66.9 Obesity, unspecified; Z68.35 Body mass index [BMI] 35.0-35.9, adult
CPT/HCPCS: 36415; 80053; 80061; 83036; 86481; 86803; 87389

== ENCOUNTER 2024-01-22 19:13 | Emergency (ER) | payer OTHER, SELFPAY ==
--- NOTE | ~2024-01-22 | XR_ITS ---
EXAMINATION: XR CHEST CLINICAL INFORMATION: Coughing in rib pain on left side. COMPARISON: None available. TECHNIQUE: Frontal view of the chest was obtained. FINDINGS: Lungs are well-expanded without acute process. There is mild prominence of interstitial markings. There is no pleural effusion. Heart size and pulmonary vascularity is normal. No gross bony abnormality seen. XR/XR chest 1V IMPRESSION: Mild prominence of bilateral interstitial markings but no acute cardiopulmonary process seen.
--- NOTE | ~2024-01-22 | CT_ITS ---
EXAMINATION: CT ANGIOGRAM OF THE CHEST WITH AND WITHOUT CONTRAST (CT PULMONARY ANGIOGRAM FOR PE) CLINICAL INFORMATION: Reason for Exam cp COMPARISON: None available. TECHNIQUE: Prior to contrast administration, noncontrast localization images were obtained. Subsequently, multidetector volumetric imaging was performed from the thoracic inlet to below the diaphragms following the administration of 80 mL Omnipaque 350 intravenous contrast. No contrast reaction reported Sagittal, coronal, and MIP oblique sagittal reformatted images were obtained on the CT workstation, uploaded to PACS, and reviewed. This CT examination was performed using dose optimization techniques as appropriate, variously including the following: *Automated exposure control *Adjustment of mA and/or kV according to patient size (this includes techniques or standardized protocols for targeted exams where dose is matched to indication/reason for exam; i.e. extremities or head) *Use of iterative reconstruction technique Total exam dose-length product 432 mGy-cm FINDINGS: QUALITY OF STUDY/CONTRAST BOLUS: Satisfactory. PULMONARY ARTERIES: No pulmonary emboli. THORACIC AORTA: No aneurysm. LUNG: There is partial left lower lung field peripheral bronchial opacification. There is no focal parenchymal consolidation. PLEURA: No pleural effusion or pneumothorax. MEDIASTINUM: Normal heart size. No pericardial effusion. No hilar or mediastinal lymphadenopathy. No evidence of septal bowing or right heart strain. CORONARY ARTERY CALCIFICATION: None visualized on this study. CHEST WALL/AXILLA: No axillary or internal mammary lymphadenopathy. OSSEOUS STRUCTURES: Moderate L1-L2 degenerative change with mild retrolisthesis of L1 over L2 and L1-L2 osteophyte formation and disc bulging with apparent mild to moderate spinal canal narrowing at this level. UPPER ABDOMEN: Unremarkable. There are diverticula at the splenic flexure of colon. No reflux of contrast into the hepatic veins to suggest elevated right heart pressures. CT/CT angio chest PE protocol IMPRESSION: No evidence of pulmonary embolism. No active cardiopulmonary disease. Diverticula at the splenic flexure of colon. VTE: negative.
[2024-01-22 19:18] VITALS: BP 152/98; PULSE 90; O2SAT 100
[2024-01-22 19:31] VITALS: BP 117/73; PULSE 88; RESP 20; TEMP 37; O2SAT 96; BMI 33.3
[2024-01-22 20:04] LABS: MANUAL DIFF FLAG NO
[2024-01-22 20:05] LABS: Basophils Percent Auto 0.3 % (0-2); Eosinophils Absolute Auto 0.5 X10*3/uL (0.0-0.4); Eosinophils Percent Auto 4.7 % (0-4); Hematocrit 46.1 % (42.0-52.0); Hemoglobin 15.5 g/dl (14.0-18.0); Imm Gran Abs Auto 0.02 X10*3/uL (0.00-0.03); Imm Gran Pct Auto 0.2 % (0.0-0.4); Lymphocytes Absolute Auto 2.8 X10*3/uL (1.2-4.9); Lymphocytes Percent Auto 28.9 % (20-40); Mean Corpuscular HGB Conc 33.6 g/dl (31.0-36.0); Mean Corpuscular Hemoglobin 30.2 pg (27.0-33.0); Mean Corpuscular Volume 89.7 fL (80.0-98.0); Mean Platelet Volume 9.1 fL (9.4-12.4); Monocytes Absolute Auto 1.2 X10*3/uL (0.1-1.2); Monocytes Percent Auto 12.6 % (2-11); Neutrophils Absolute Auto 5.1 x10*3/uL (2.0-8.3); Neutrophils Percent Auto 53.3 % (45-73); Platelet Count 255 X10*3/uL (160-400); Red Blood Count 5.14 X10*6/uL (4.60-5.80); Red Cell Distribution Width 13.7 % (11.0-16.0); White Blood Count 9.7 X10*3/uL (4.8-10.8)
[2024-01-22 20:20] LABS: Alanine Aminotransferase 21 U/L (0-40); Albumin Level 3.9 g/dL (3.5-5.0); Alkaline Phosphatase 68 U/L (39-117); Anion Gap 15 (12-20); Aspartate Amino Transferase 17 U/L (5-37); Bilirubin Total 0.3 mg/dL (0.0-1.0); Blood Urea Nitrogen 15 mg/dL (9-16); Calcium 9.2 mg/dL (8.4-10.2); Carbon Dioxide 23 mmol/L (22-29); Chloride 105 mmol/L (96-108); Creatinine Clr Calc Pharmacy 99.1; Estimated Glomerular Filt Rate > 60; Glucose Random 118 mg/dL (60-115); Potassium 3.8 mmol/L (3.3-5.1); Sodium 139 mmol/L (135-145); Total Protein 6.7 g/dL (6.5-8.0)
[2024-01-22 20:51] LABS: Influenza A PCR NEGATIVE (Negative); Influenza B PCR NEGATIVE (Negative); Resp Syncy Virus RNA Qual PCR NEGATIVE (Negative); SARS COV2 PCR INHOUSE NEGATIVE (Negative)
[2024-01-23 02:57] VITALS: BP 123/87; PULSE 80; RESP 18; TEMP 36.8; O2SAT 96
--- NOTE | 2024-01-23 03:04 | ED_ITS ---
HPI - Abdominal Pain General Chief Complaint: Abdominal Pain Stated Complaint: l side flank pain Time Seen by Provider: 01/23/24 02:23 History of Present Illness HPI narrative: Patient is a 64-year-old male presents today with having increasing coughing pain to the left posterior rib after coughing. Also pain worsened with deep breath. Worsened with movement. Has a long history of smoking. Has a long history of leg swelling. Has a history of crack cocaine use. Also history of urinary retention baseline self catheterization 3 times today patient denies any fever chills. Denies any diaphoresis. Reports the pain is making him hard to take a breath. No frontal chest pain. No diaphoresis. Patient from home. Related Data Previous Rx's ?Medication ?Instructions ?Recorded bisacodyl 5 mg tablet,delayed 5 mg PO DAILY #30 tabs 05/25/23 release divalproex 500 mg tablet,extended 1,500 mg (3 x 500 mg) PO BEDTIME 05/25/23 release 24 hr #90 tabs ibuprofen 600 mg tablet 600 mg PO Q6H PRN Pain, Mild (Pain 05/25/23 Scale 1-3) #60 tabs lidocaine 4 % topical patch 2 patch transdermal DAILY #60 ea 05/25/23 (Lidocaine Pain Relief) olanzapine 10 mg tablet 10 mg PO BEDTIME #30 tabs 05/25/23 tamsulosin 0.4 mg capsule 0.4 mg PO DAILY #30 caps 05/25/23 trazodone 100 mg tablet 100 mg PO BEDTIME PRN Insomnia #30 05/25/23 tabs benzonatate 100 mg capsule 100 mg PO Q6H PRN cough #20 caps 01/23/24 benzonatate 100 mg capsule 100 mg PO TID PRN cough #20 caps 01/23/24 benzonatate 200 mg capsule 200 mg PO TID PRN cough #20 caps 01/23/24 nitrofurantoin 100 mg PO Q12H 7 days #14 caps 01/23/24 monohydrate/macrocrystals 100 mg capsule (Macrobid) nitrofurantoin 100 mg PO Q12H 7 days #14 caps 01/23/24 monohydrate/macrocrystals 100 mg capsule (Macrobid) Allergies Allergy/AdvReac Type Severity Reaction Status Date / Time No Known Allergies Allergy Verified 01/22/24 19:33 [No Known Allergies*] Review of Systems Review of Systems No fever no chills positive pain to the left posterior rib area Yes all other systems are reviewed and are negative [facility] Past Medical History Attestation statement: The following information was validated with the patient. Medical History Cervical radiculopathy Chronic neck and back pain Drug addiction in remission Alcoholism in remission Bipolar 1 disorder Benign prostatic hyperplasia with lower urinary tract symptoms History of adenomatous polyp of colon Social History Social History Household Members: None Housing: Apartment Do you presently have visiting nurse or other home services: No Alcohol intake: former Patient Tobacco Use Status: Current someday Tobacco user Tobacco use type: Cigarette Cigarette Packs Per Day: 0.25 Cigarettes Per Day: 5.0 Years Smoked: 35 Smoked in Last 30 Days: Yes e-Cigarette/Vaping Use: Never Used Second Hand Smoke Exposure: No Use of substances other than those prescribed or required for medical reasons: Yes Substance Use Type: Crack/Cocaine Last Used Substance: Weeks (ago) Advance Directives: No Advance Directives Information Provided: No Do you have a plan to hurt others: No Plan service: Yes Physical Exam ED Vital Signs: Vital Signs - 24 hr 01/22/24 19:31 01/23/24 02:57 01/23/24 06:47 Temperature 98.6 F 98.3 F 97.4 F Pulse Rate 88 80 80 Respiratory Rate 20 18 17 Blood Pressure 117/73 123/87 141/78 H Pulse Oximetry 96 96 96 Oxygen Delivery Method Room Air Room Air Room Air BMI result Body Mass Index 33.3 Appearance: Alert. Oriented X3. No acute distress. Eyes: Pupils equal, round and reactive to light. ENT: Pharynx normal. Neck: Normal inspection. Neck supple. No lymph nodes noted. No crepitus CVS: Normal heart rate and rhythm. Pulses normal. Normal S1 and S2 Respiratory: No respiratory distress. Breath sounds normal. No Wheezing. No rales Abdomen: Soft and nontender. No rigidity. No distention. good BS x4 Skin: Skin warm and dry. Normal skin color. Normal skin turgor. Extremities: No lower extremity edema. Neurovascular intact to all extremities. No Lacerations. No Rash Neuro: Oriented X 3. No motor deficit. No sensory deficit. Moving all extermities. No slurred speech Medical Decision Making Medical Decision Making [facility] Narrative: Patient's bladder scan showed over 600 cc of urine. Positive history of urinary retention. A straight catheterization was performed by nursing. Urine was drained out. Patient has pain to the right posterior rib area after coughing spell. The pain is worse with deep breath. Worse with movement. Patient feels short of breath. Labs ordered CTA of the chest was ordered to rule out the possibility of rib fracture, pneumonia, PE. Patient in no distress. His white count is normal. His COVID flu RSV were all negative. Patient's electrolytes are unremarkable. LFTs are normal. CTA of the chest showed no evidence of pneumonia no pneumothorax. No fracture. Patient's urine is grossly infected. More likely from chronic colonization as patient's self catheterization on a regular basis. However given patient's pain in the chest radiating down will start patient on a course of empiric antibiotics. Patient's previous urine cultures reviewed. Positive history of staph epidermidis. Sensitive to Macrobid. Will give a course of 7 days of Macrobid. Close follow-up on an outpatient basis. Patient's flu COVID RSV were all negative. Differential Diagnosis Differential Diagnoses: The differential diagnosis associated with the presentation includes Urinary tract infection, pneumonia, pneumothorax, rib fracture, electrolyte disturbance Admission/Observation Consideration of admission/observation: Escalation of care including admission/observation considered Lab Data [facility] Lab Attestation statement: I reviewed the patient's lab results. 01/22/24 19:50 01/22/24 19:50 Labs: Lab Results 01/22/24 01/23/24 Range/Units 19:50 02:48 WBC 9.7 (4.8-10.8) X10*3/uL RBC 5.14 (4.60-5.80) X10*6/uL Hgb 15.5 (14.0-18.0) g/dl Hct 46.1 (42.0-52.0) % MCV 89.7 (80.0-98.0) fL MCH 30.2 (27.0-33.0) pg MCHC 33.6 (31.0-36.0) g/dl RDW 13.7 (11.0-16.0) % Plt Count 255 (160-400) X10*3/uL MPV 9.1 L (9.4-12.4) fL Immature Gran % (Auto) 0.2 (0.0-0.4) % Neut % (Auto) 53.3 (45-73) % Lymph % (Auto) 28.9 (20-40) % Camden % (Auto) 12.6 H (2-11) % Eos % (Auto) 4.7 H (0-4) % Baso % (Auto) 0.3 (0-2) % Lymph # (Auto) 2.8 (1.2-4.9) X10*3/uL [place] # (Auto) 1.2 (0.1-1.2) X10*3/uL Eos # (Auto) 0.5 H (0.0-0.4) X10*3/uL Baso # (Auto) 0.0 (0.0-0.2) X10*3/uL Abs Immat Gran (auto) 0.02 (0.00-0.03) X10*3/uL Absolute Neuts (auto) 5.1 (2.0-8.3) x10*3/uL Absolute Nucleated RBC 0.000 (0.0-0.012) X10*3/uL Nucleated RBC % (auto) 0.0 (0.0-0.2) /100WBC Sodium 139 (135-145) mmol/L Potassium 3.8 (3.3-5.1) mmol/L Chloride 105 (96-108) mmol/L Carbon Dioxide 23 (22-29) mmol/L Anion Gap 15 (12-20) BUN 15 (9-16) mg/dL Creatinine 0.80 (0.5-1.4) mg/dL Estim Creat Clear Calc 99.1 Estimated GFR > 60 Random Glucose 118 H (60-115) mg/dL Calcium 9.2 (8.4-10.2) mg/dL Total Bilirubin 0.3 (0.0-1.0) mg/dL AST 17 (5-37) U/L ALT 21 (0-40) U/L Alkaline Phosphatase 68 (39-117) U/L Total Protein 6.7 (6.5-8.0) g/dL Albumin 3.9 (3.5-5.0) g/dL Urine Color Yellow Urine Appearance Clear Urine pH 6.5 (5.0-9.0) Ur Specific Jackson 1.020 (1.005-1.025) Urine Protein 30 (1+) H (Neg-Trace) mg/dL Urine Glucose (UA) Negative (Negative) mg/dL Urine Ketones Trace (Negative) mg/dL Urine Blood Trace H (Negative) Urine Nitrite Negative (Negative) Ur Leukocyte Esterase Small (1+) H (Negative) Urine RBC >20 H (0-2) /HPF Urine WBC >50 H (0-5) /HPF Ur Squamous Epith Cells 0-2 (0-2) /HPF Urine Bacteria None Seen (None Seen) Hyaline Casts 0-2 (0-2) /LPF Influenza Type A (PCR) NEGATIVE (Negative) Influenza Type B (PCR) NEGATIVE (Negative) RSV RNA Qual (PCR) NEGATIVE (Negative) SARS-CoV-2 RNA (RT-PCR) NEGATIVE (Negative) Independent Interpretation I performed an independent interpretation of an: CT Scan Radiology Impression Discussion of test interpretation with radiology: I have reviewed the radiologist's reading. External Record Review External record reviewed: Inpatient record Medications Administered Discontinued Medications Generic Name Dose Route Start Last Admin Trade Name Freq PRN Reason Stop Dose Admin Iohexol 65 ml 01/23/24 03:27 01/23/24 03:27 Iohexol 350 Mg/Ml 100 Ml Infus..Btl IV 01/23/24 03:28 65 ml ONCE ONE Administration Discharge Plan Discharge Clinical Impression: Acute chest wall pain, Acute on chronic urinary retention, Acute UTI Patient Disposition: Home, Self-Care Prescriptions: New nitrofurantoin monohyd/m-cryst [Macrobid] 100 mg capsule 100 mg PO Q12H 7 Days Qty: 14 0RF Rx Instructions: must administer with a meal/food nitrofurantoin monohyd/m-cryst [Macrobid] 100 mg capsule 100 mg PO Q12H 7 Days Qty: 14 0RF Rx Instructions: must administer with a meal/food benzonatate 100 mg capsule 100 mg PO Q6H PRN (Reason: cough) Qty: 20 0RF benzonatate 200 mg capsule 200 mg PO TID PRN (Reason: cough) Qty: 20 0RF benzonatate 100 mg capsule 100 mg PO TID PRN (Reason: cough) Qty: 20 0RF No Action ibuprofen 600 mg Tablet 600 mg PO Q6H PRN (Reason: Pain, Mild (Pain Scale 1-3)) Qty: 60 0RF bisacodyl 5 mg Tablet,Delayed Release (Dr/Ec) 5 mg PO DAILY Qty: 30 0RF lidocaine [Lidocaine Pain Relief] 4 % Adhesive Patch,Medicated 2 patch transdermal DAILY Qty: 60 0RF Protocol: Apply to: Apply to: back olanzapine 10 mg Tablet 10 mg PO BEDTIME Qty: 30 0RF tamsulosin 0.4 mg Capsule 0.4 mg PO DAILY Qty: 30 0RF trazodone 100 mg Tablet 100 mg PO BEDTIME PRN (Reason: Insomnia) Qty: 30 0RF divalproex 500 mg Tablet Extended Release 24 Hr 1,500 mg PO BEDTIME Qty: 90 0RF Referrals: Emma Nuno MD [Primary Care Provider] - 01/25/24 Print Language: Turkish
[2024-01-23 03:23] LABS: Appearance Urine Clear; Color Urine Yellow; Glucose Urine UA Negative (Negative); Leukocyte Esterase Urine Small (1+) (Negative); Nitrite Urine Negative (Negative); PH 6.5 (5.0-9.0); UMIC TRIGGER UACC YES; Urine Blood Trace (Negative); Urine Ketones Trace mg/dL (Negative); Urine Protein 30 (1+) mg/dL (Neg-Trace)
[2024-01-23 03:25] LABS: Bacteria Urine None Seen (None Seen); Hyaline Casts Urine 0-2 /LPF (0-2); RBC Urine >20 /HPF (0-2); Squamous Epithelial Cell Urine 0-2 /HPF (0-2); UACC Culture Trigger YES; WBC Urine >50 /HPF (0-5)
[2024-01-23] MEDS: iohexoL 350 MG/ML 100 ML INFUS..BTL 65 ML IV (03:27)
[2024-01-23 06:47] VITALS: BP 141/78; PULSE 80; RESP 17; TEMP 36.3; O2SAT 96
[2024-01-23] MEDS: Benzonatate 100 MG CAPSULE PO (07:16)
[2024-01-23] MEDS: Nitrofurantoin Monohyd/M-Cryst 100 MG CAPSULE PO (07:16)
[2024-01-23 07:26] VITALS: BP 136/78; PULSE 72; RESP 20; TEMP 36.9; O2SAT 99
== END 2024-01-23 07:27 | disposition home or self-care (01) ==
PROVIDERS: Emergency Provider Emergency Medicine Emergency Medical Services; PCP General Practice
DX: R07.89 Other chest pain (principal); N39.0 Urinary tract infection, site not specified; B95.7 Other staphylococcus as the cause of diseases classified elsewhere; R33.8 Other retention of urine; R05.9 Cough, unspecified; R07.81 Pleurodynia; F17.210 Nicotine dependence, cigarettes, uncomplicated; Z79.899 Other long term (current) drug therapy; Z03.818 Encounter for observation for suspected exposure to other biological agents ruled out
CPT/HCPCS: 0241U; 36415; 51701; 71045; 71275; 80053; 81001; 81003; 85025; 87086; 87088; 87186; 99284; Q9967

== ENCOUNTER 2024-01-27 13:10 | Outpatient (REF) | payer OTHER, SELFPAY ==
--- NOTE | ~2024-01-27 | XR_ITS ---
EXAMINATION: XR RIBS, BILATERAL CLINICAL INFORMATION: Injury Rib pain on left side, persistent posterior rib pain. COMPARISON: Chest 01/22/2024 TECHNIQUE: PA chest and 5 views views of the bilateral ribs were obtained. FINDINGS: There is mild streaky opacity in the left upper lobe along the major fissure consistent with atelectasis and/or pneumonia. No pneumothorax, or pleural effusion. The cardiomediastinal silhouette and pulmonary vasculature are normal. Osseous structures are unremarkable. Ribs are intact. No fractures are identified. XR/XR ribs BI min 4V w CXR1V IMPRESSION: 1. Minimal upper lobe atelectasis and/or pneumonia. 2. No displaced rib fracture.
== END 2024-01-27 13:11 | disposition home or self-care (01) ==
LOC: HO.HHCX 13:10
PROVIDERS: Visit Provider Family Medicine
DX: R07.81 Pleurodynia (principal)
CPT/HCPCS: 71111

== ENCOUNTER 2024-02-17 16:02 | Outpatient (REF) | payer OTHER, SELFPAY ==
--- NOTE | ~2024-02-17 | XR_ITS ---
EXAMINATION: XR CHEST CLINICAL INFORMATION: Shortness of breath. COMPARISON: 01/27/2024 TECHNIQUE: 2 views of the chest were obtained. FINDINGS: The lungs are well expanded. No focal consolidation. No pleural effusion. Cardiac silhouette is unchanged. XR/XR chest 2V IMPRESSION: No acute abnormality.
== END 2024-02-17 16:03 | disposition home or self-care (01) ==
LOC: HO.HHCX 16:02
PROVIDERS: Visit Provider General Practice
DX: R06.02 Shortness of breath (principal); R07.81 Pleurodynia
CPT/HCPCS: 71046

== ENCOUNTER 2024-06-01 16:50 | Outpatient (REF) | payer OTHER, SELFPAY | END 2024-06-01 16:51 | disposition home or self-care (01) | LOC: HO.HHCLNP 16:50 | PROVIDERS: Visit Provider Registered Nurse | DX: R30.0 Dysuria (principal) | CPT/HCPCS: 87086 ==

== ENCOUNTER 2024-11-02 15:53 | Outpatient (REF) | payer OTHER, SELFPAY ==
--- NOTE | ~2024-11-02 | XR_ITS ---
CLINICAL HISTORY: pain and swelling Three views of the left knee. COMPARISON: None FINDINGS: No appreciable suprapatellar joint effusion. Joint spaces are maintained. Small osteophytes present along the patella. Visualized portions of the distal femur, patella, and proximal tibia and fibula appear intact. IMPRESSION: 1. No radiographic evidence of acute injury to the left knee. 2. Mild patellofemoral degenerative changes of the left knee. This document has been electronically signed by: Guerrero Sanchez MD on 11/02/2024 16:54:04
--- NOTE | ~2024-11-02 | XR_ITS ---
CLINICAL HISTORY: intermittent pain Three views of the right hip. COMPARISON: XR right hip dated 11/18/21 at 14:38 EDT FINDINGS: Visualized portions of the proximal right femur appears intact. No trabecular disruption or cortical discontinuity. There is near-complete loss of right hip joint space. Prominent osteophytes present along the femoral head. Visualized portions of the pelvis appear intact. IMPRESSION: 1. No radiographic evidence of acute injury to the right hip. 2. Advanced degenerative changes of the right hip, worsened since prior imaging. This document has been electronically signed by: Guerrero Sanchez MD on 11/02/2024 16:57:46
--- OUTSIDE RECORDS SUMMARY | 2024-11-02 17:51 | XMS_ITS | Encounter Summary ---
Author Organization [employer] Address [address] [place] [address] Care Team Providers Care Bulk Intake Worker Name Role Phone Emma Nuno MD Primary Care Provider [phone] Encounter Details Date Type Department Care Team (Late st Contact Info) Description 11/04/2022 Orders Only [facility]S [address] [place] [address] Georgia Lanier LPN Social History Tobacco Use Types Packs/Day Years Used Date Smoking Tobacco: Never Assessed Sex and Gender Information Value Date Recorded Sex Assigned at Male 07/05/2022 10:30 AM EDT Legal Sex Male 10:30 AM EDT Gender Identity Male 07/05/2022 10:30 AM EDT Sexual Orientation Straight 07/05/2022 10 :30 AM EDT documented as of this encounter Plan of Treatment Not on file documented as of this encounter Visit Diagnoses Not on filedocumented in this encounter Care Teams Bulk Intake Worker Relationship Specialty Start Date End Date Emma Nuno MD [address] [place] [address] PCP - General Family Medicine 09/19/20 documented as of this encounter
--- OUTSIDE RECORDS SUMMARY | 2024-11-02 17:51 | XMS_ITS | Encounter Summary ---
Author Organization [employer] Address [address] [place] [address] Care Team Providers Care Specialist Employee Labor Relations Name Role Phone Emma Nuno MD Primary Care Provider [phone] Reason for Visit * Reason Onset Date Comments Appointment Request 11/25/2022 Encounter Details Date Type Department Care Team ([facility] st Contact Info) Description 11/25/2022 Telephone [facility] MEDICINE [address] [place], [place] [phone] Emma Nuno MD [address] [place], [place] [phone] Appointment Request Social History Tobacco Use Types Packs/Day Years Used Date Smoking Tobacco: Never Assessed Sex and Gender Information Value Date Recorded Sex Assigned at Male 07/05/2022 10:30 AM EDT Legal Sex Male 10:30 AM EDT Gender Identity Male 07/05/2022 10:30 AM EDT Sexual Orientation Straight 07/05/2022 10 :30 AM EDT documented as of this encounter Miscellaneous Notes * Telephone Encounter - Veronika Vega - 11/25/2022 9:35 AM EDT Tc from [facility] requesting an appt with provider regarding pt physical/f/u appt. Please contact [facility] at [phone] documented in this encounter Plan of Treatment Not on file documented as of this encounter Visit Diagnoses Not on filedocumented in this encounter Care Teams Specialist Employee Labor Relations Relationship Specialty Start Date End Date Emma Nuno MD [address] [place], [place] [phone] PCP - General Family Medicine 09/19/20 documented as of this encounter
--- OUTSIDE RECORDS SUMMARY | 2024-11-02 17:51 | XMS_ITS | Encounter Summary ---
Author Organization [employer] Address [address] [place] [address] Care Team Providers Care Draw End Hand Name Role Phone Emma Nuno MD Primary Care Provider Encounter Details Date Type Department Care Team (Late st Contact Info) Description 10/17/2023 Orders Only [facility] MEDICINE [address] [place], [place] [phone] Emma Nuno MD [address] [place], [place] [phone] Social History Tobacco Use Types Packs/Day Years Used Date Smoking Tobacco: Former Cigarettes Smokeless Tobacco: Never Alcohol Use Standard Drinks/Week Comments Not Currently 0 (1 standard drink = 0.6 oz pur e alcohol) Depression Answer Date Recorded Patient Health Questionnaire-9 Score 9 12/30/2022 Housing Stability Answer Date Recorded What is your housing situation today? I have krishna connie 06/21/[address] you li ve. Do you have problems with any of the following? None of the above 06/21/2023 Food Insecurity Answer Date Recorded Within the past 12 months, y ou worried that your food would run out before you got money to buy more: Never True 06/21/2023 Within the past 12 months,th e food you bought just didn't last and you didn't have enough money to get more: Never True Transportation Answer Date Recorded In the past 12 months, has l ack of transportation kept you from medical appts, meetings, work or from getting things needed for daily living? No 10/10/2023 Utilities Answer Date Recorded In the past 12 months, has t he electric, gas, oil or water company threatened to shut off services in your home? No 06/21/2023 Depression Answer Date Recorded Patient Health Questionnaire-2 Score 4 12/30/2022 Sex and Gender Information Value Date Recorded Sex Assigned at Male 07/05/2022 10:30 AM EDT Legal Sex Male 10:30 AM EDT Gender Identity Male 07/05/2022 10:30 AM EDT Sexual Orientation Straight 07/05/2022 10 :30 AM EDT documented as of this encounter Plan of Treatment Not on file documented as of this encounter Visit Diagnoses Not on filedocumented in this encounter Additional Health Concerns Assessment Noted Time PHQ-9 Depression Total Score: 9 12/31/19 23 9:13 AM EDT documented as of this encounter Care Teams Draw End Hand Relationship Specialty Start Date End Date Emma Nuno MD [address] [place] [id number] PCP - General Family Medicine 09/19/20 documented as of this encounter
--- OUTSIDE RECORDS SUMMARY | 2024-11-02 17:51 | XMS_ITS | Encounter Summary ---
Author Organization [employer] [facility] Address [address] [place] [address] Care Team Providers Care Financial Analyst Intern Name Role Phone Emma Nuno MD Primary Care Provider [phone] Encounter Details Date Type Department Care Team (Late st Contact Info) Description 09/01/2022 Orders Only [facility] MEDICINE [address] [place], [place] [phone] Emma Nuno MD [address] [place], [place] [phone] Screening for malignant neoplasm of colon (Primary Dx) Social History Tobacco Use Types Packs/Day Years [...] documented as of this encounter Visit Diagnoses Diagnosis Screening for malignant neoplasm of colon- Primary documented in this encounter Care Teams Financial Analyst Intern Relationship Specialty Start Date End Date Emma Nuno MD [address] [place], [place] [phone] PCP - General Family Medicine 09/19/20 documented as of this encounter
--- OUTSIDE RECORDS SUMMARY | 2024-11-02 17:51 | XMS_ITS | Encounter Summary ---
Author Organization [employer] [facility] Address [address] [place] [address] Care Team Providers Care Supervisor Nutritional Yeast Name Role Phone Emma Nuno MD Primary Care Provider [phone] Encounter Details Date Type Department Care Team (Latest Contact Info) Description 05/18/2021 Abstract [facility] CONVERSIONS Dental, Provider, DDS Social History Tobacco Use Types Packs/Day Years [...] on filedocumented in this encounter Care Teams Supervisor Nutritional Yeast Relationship Specialty Start Date End Date Emma Nuno MD [address] [place] [address] PCP - General Family Medicine 09/19/20 documented as of this encounter
--- OUTSIDE RECORDS SUMMARY | 2024-11-02 17:51 | XMS_ITS | Encounter Summary ---
Author Organization [employer] Address [address] [place] [address] Care Team Providers Care Bezel Cutter Name Role Phone Emma Nuno MD Primary Care Provider [phone] Reason for Visit * Reason Onset Date Comments Durable Medical Equipment 11/25/2022 Encounter Details Date Type Department Care Team ([facility] st Contact Info) Description 11/25/2022 Telephone [facility] MEDICINE [address] [place], [place] [phone] Emma Nuno MD [address] [place], [place] [phone] Durable Medical Equipment Social History Tobacco Use Types Packs/Day Years Used Date Smoking Tobacco: Never Assessed Sex and Gender Information Value Date Recorded Sex Assigned at Male 07/05/2022 10:30 AM EDT Legal Sex Male 10:30 AM EDT Gender Identity Male 07/05/2022 10:30 AM EDT Sexual Orientation Straight 07/05/2022 10 :30 AM EDT documented as of this encounter Miscellaneous Notes * Telephone Encounter - Citlali Peterson - 11/26/2022 10:07 AM EDT Message left at number provided requesting a call back with more information regarding DME requests * Telephone Encounter - Veronika Vega - 11/25/2022 9:39 AM EDT Tc from [facility] requesting a Heating pad and the Depend adult Size ( M ). Please contact [facility] if any questions at [phone] documented in this encounter Plan of Treatment Not on file documented as of this encounter Visit Diagnoses Not on filedocumented in this encounter Care Teams Bezel Cutter Relationship Specialty Start Date End Date Emma Nuno MD [address] [place] [address] PCP - General Family Medicine 09/19/20 documented as of this encounter
--- OUTSIDE RECORDS SUMMARY | 2024-11-02 17:52 | XMS_ITS | Encounter Summary ---
Author Organization [employer] Address [address] [place] [address] Care Team Providers Care Branch Administrator Name Role Phone Emma Nuno MD Primary Care Provider [phone] Reason for Visit * Reason Comments Med Refill Encounter Details Date Type Department Care Team ([facility] st Contact Info) Description 10/08/2024 Refill [facility] MEDICINE [address] [place], [place] [phone] Emma Nuno MD [address] [place], [place] [phone] Social History Tobacco Use Types Packs/Day Years Used Date Smoking Tobacco: Some Days Cigarettes Smokeless Tobacco: Never Alcohol Use Standard Drinks/Week Comments Not Currently 0 (1 standard drink = 0.6 oz pur e alcohol) Alcohol Answer Date Recorded Frequency of Alcohol Consumption Not on file 01/03/2024 Average Number of Drinks Not on file 024 Frequency of Binge Drinking Not on file 12/06 Score 0 01/03/2024 Depression Answer Date Recorded Patient Health Questionnaire-9 Score 0 01/03/2024 Patient Health Questionnaire-9 Score 0 01/03/2024 Last PHQ-9: Questionnaire Data Not on file 0 01/03/2024 Housing Stability Answer Date Recorded What is your housing situation today? I have krishna rosales 06/21/[address] you li [...] from getting things needed for daily living? Yes, it has kept me from medical appointments or getting medications. 01/03/2024 Utilities Answer Date Recorded In the past 12 months, has t he electric, gas, oil or water company threatened to shut off services in your home? No 06/21/2023 Depression Answer Date Recorded Patient Health Questionnaire-2 Score 0 01/03/2024 Sex and Gender Information Value Date Recorded [...] Assessment Noted Time PHQ-9 Depression Total Score: 0 01/03/20 24 10:42 AM EDT documented as of this encounter Care Teams Branch Administrator Relationship Specialty Start Date End Date Emma Nuno MD [address] [place] [id number] PCP - General Family Medicine 09/19/20 documented as of this encounter
--- OUTSIDE RECORDS SUMMARY | 2024-11-02 17:52 | XMS_ITS | Encounter Summary ---
Author Organization [employer] Address [address] [place] [address] Care Team Providers Care Contractor Field Hauling Name Role Phone Emma Nuno MD Primary Care Provider [phone] Reason for Visit * Reason Comments Med Refill Encounter Details Date Type Department Care Team ([facility] st Contact Info) Description 10/24/2024 Refill [facility] MEDICINE [address] [place], [place] [phone] Emma Nuno MD [address] [place], [place] [phone] Social History Tobacco Use Types Packs/Day Years [...] documented as of this encounter Care Teams Contractor Field Hauling Relationship Specialty Start Date End Date Emma Nuno MD [address] [place] [id number] PCP - General Family Medicine 09/19/20 documented as of this encounter
--- OUTSIDE RECORDS SUMMARY | 2024-11-02 17:52 | XMS_ITS | Clinical Summary ---
Author Organization [email or web address] Address [address] [facility] [address] [place] [address] Care Team Providers Care Medical Laboratory Specialist Name Role Phone Emma Nuno MD Primary Care Provider [phone] Allergies No known active allergies Medications * This document contains information received from the source organization and may not represent a complete record from that organization. diphenhydrAMINE (Banophen) 25 MG tabletIndicatio ns:Itching TAKE 1 TO 2 TABLETS BY MOUTH AT BEDTIME NEEDED 60 tablet 11 12/04/19 23 Active Acetaminophen Extra Strength 500 MG tablet TAKE 1-2 TABLETS BY ORAL ROUTE EVERY 6 HOURS NEEDED FOR BACK PAIN 08/03/20 22 Active sildenafil (Viagra) 50 MG tablet TAKE 1 TABLET 1 HOUR BEFORE SEXUAL RELATIONS ONCE DAILY NEEDED. 20 tablet 3 02/05/20 23 Active nicotine (Nicoderm, Step 3) 7 MG/24HR patch 06/29/20 23 Active divalproex (Depakote ER) 500 MG 24 hr tablet Take 1 tablet (500 mg) by mouth in the morning. 90 tablet 3 10/14/19 24 Active traZODone (Desyrel) 100 MG tabletIndicatio ns:Primary insomnia Take 1 tablet (100 mg) by mouth at bedtime. 90 tablet 3 10/14/19 24 Active Sodium Fluoride (PreviDent 5000 Booster Plus) 1.1 % paste Apply 1 Application. to teeth 2 times daily. 112 g 3 11/09/19 24 Active hydrOXYzine pamoate (Vistaril) 25 MG capsule TAKE 1 CAPSULE BY MOUTH TWICE DAILY NEEDED 11/16/19 24 Active benzonatate (Tessalon) 100 MG capsule Take 100 mg by mouth if needed in the morning, at noon, and at bedtime for cough. 01/23/20 24 Active cephalexin (Keflex) 500 MG capsule Take 500 mg by mouth 3 times daily. 02/23/20 Active OLANZapine (ZyPREXA) 10 MG tablet Take 1 tablet by mouth at bedtime. 05/25/20 Active albuterol (Ventolin HFA) 108 (90 Base) MCG/ACT inhaler INHALE 2 PUFFS BY MOUTH EVERY 4 HOURS NEEDED FOR WHEEZING OR SHORTNESS OF BREATH 18 g 3 04/13/20 24 Active nicotine polacrilex (Nicorette) 2 MG gum CHEW 1 PIECE OF GUM EVERY 2 HOURS NEEDED 04/13/20 24 Active docusate sodium (Colace) 100 MG capsuleIndicati ons:Constipatio n, unspecified constipation type Take 1 capsule (100 mg) by mouth Once per day. 90 capsule 3 06/01/20 24 2024 Active psyllium (Metamucil Smooth Texture) 58.6 % powderIndicatio ns:Constipation , unspecified constipation type Take 5.12 g (3 g of fiber) by mouth Once per day. 283 g 11 06/01/20 24 2024 Active polyethylene glycol, PEG, 3350 (MiraLax) 17 GM/SCOOP powderIndicatio ns:Constipation , unspecified constipation type Take 17 g by mouth Once per day. 527 g 2 06/01/20 24 Active Reguloid 57.6 % powderIndicatio ns:Constipation , unspecified constipation type MIX 1 TEASPOONFUL (5.8 GRAMS) IN WATER AND DRINK ONCE DAILY 06/01/20 Active Diclofenac Sodium 1 % gelIndications: Other chronic pain APPLY 2 GRAMS TO AFFECTED AREA(S) TWICE DAILY 100 g 6 06/27/20 24 Active ibuprofen 600 MG tabletIndicatio ns:Other chronic pain TAKE 1 TABLET BY MOUTH THREE TIMES DAILY 90 tablet 3 07/17/20 24 Active rOPINIRole XL (Requip XL) 2 MG 24 hr tablet TAKE 1 TABLET BY MOUTH AT BEDTIME 90 tablet 2 07/17/20 24 Active amitriptyline (Elavil) 25 MG tablet TAKE 1 TABLET BY MOUTH AT BEDTIME 90 tablet 3 10/09/19 25 Active D3 Super Strength 50 MCG (2000 UT) capsule TAKE 1 CAPSULE BY MOUTH ONCE DAILY IN THE MORNING 90 capsule 3 10/24/19 25 Active tamsulosin (Flomax) 0.4 MG 24 hr capsule TAKE 1 CAPSULE BY MOUTH ONCE DAILY IN THE MORNING 90 capsule 3 10/24/19 25 Active atorvastatin (Lipitor) 20 MG tablet TAKE 1 TABLET BY MOUTH ONCE DAILY IN THE MORNING 90 tablet 3 10/24/19 25 Active amitriptyline (Elavil) 25 MG tablet Take 1 tablet (25 mg) by mouth at bedtime. 90 tablet 3 10/14/19 24 2024 Discontinued atorvastatin (Lipitor) 20 MG tablet Take 1 tablet (20 mg) by mouth in the morning. 90 tablet 3 10/14/19 24 2024 Discontinued cholecalciferol (Vitamin D-3) 50 MCG (1999 UT) capsule Take 1 capsule (50 mcg) by mouth in the morning. 90 capsule 3 10/14/19 24 2024 Discontinued tamsulosin (Flomax) 0.4 MG 24 hr capsule Take 1 capsule (0.4 mg) by mouth in the morning. 90 capsule 3 10/14/19 24 2024 Discontinued guaiFENesin (Mucinex) 600 MG 12 hr tablet Take 1 tablet (600 mg) by mouth 2 times daily. Do not crush, chew, or split. 60 tablet 02/17/20 24 2024 Discontinued(T herapy completed) Active Problems Problem Noted Date Diagnosed Date Dental calculus 01/03/2024 Annual visit for general efren lt medical examination without abnormal findings 01/03/2024 Need for home health care 10/17/2023 Assessment & Plan (10/17/2023 11:13 AM EST): Ex- is his [employer] This is generally a workable situation for him Right hip pain 10/14/2023 Assessment & Plan (10/17/2023 11:14 AM EST): Continue muscle relaxer PT re-ordered Primary insomnia 10/14/2023 Urinary retention 12/30/2022 Assessment & Plan (01/03/2023 6:00 AM EDT): At end of November 2022 Resolved s/p antibiotics Benign prostatic hyperplasia 04/09/2020 Assessment & Plan (04/29/2023 10:24 AM EDT): Go to [facility]rology today PSA normal 01/2023 Continue Flomax Assessment & Plan (01/03/2023 5:59 AM EDT): Needs to get re-established with urology, referred to [facility] today PSA ordered Continue Flomax Senile hyperkeratosis 04/10/2018 Sensorineural hearing loss, bilateral 09/09/2017 Cervical radiculopathy 08/04/2016 Degenerative lumbar spinal stenosis 08/04/2016 Assessment & Plan (04/29/2023 10:28 AM EDT): S/p interventions and surgery in 2021 Walks with walker for long distances, would benefit from flexibility of cane as well Patient? s clinical findings support the need for a cane given the patient has a mobility limitation that significantly impairs his ability to participate in one or more mobility-related activities of daily living (MRADL). 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 Pain is somewhat manageable with Diclofenac and Tyelnol Assessment & Plan (01/03/2023 5:57 AM EDT): S/p interventions and surgery in 2021 Walks with cane Pain is somewhat manageable with Diclofenac and Tyelnol Tubular adenoma of colon 07/07/2016 Assessment & Plan (04/29/2023 10:24 AM EDT): Followed with GI at [facility], last in 2013, will re-refer as he needs repeat colonscopy Due for colonoscopy May 2023 Assessment & Plan (01/03/2023 5:57 AM EDT): Follows with GI at [facility] Due for colonoscopy May 2023 Impaired fasting glucose 05/26/2016 Bipolar disorder 05/07/2016 Assessment & Plan (10/17/2023 11:13 AM EST): Resume Depakote and Amitriptyline In depressive episode currently No SI/HI Encouraged to call his IOP today Assessment & Plan (04/29/2023 10:26 AM EDT): On Depakote and Amitriptyline In depressive episode currently No SI/HI Assessment & Plan (01/03/2023 6:00 AM EDT): On Depakote and Amitriptyline In depressive episode currently No SI/HI Chronic alcoholism in remission 05/07/2016 Chronic pain 05/07/2016 Assessment & Plan (04/29/2023 10:23 AM EDT): Will go back to PT Waxes and wanes Walks with walker often, sometimes walking stick Dependent drug abuse 05/07/2016 Assessment & Plan (01/03/2024 1:17 PM EDT): 90 days sober from crack use Resolved Problems Problem Noted Date Diagnosed Date Resolved Date Dysuria 10/14/2023 06/29/2024 Encounters Date Type Department Care Team Description 11/02/2024 3:15 PM EST Office Visit [facility] [address] [place] [phone] Emma Nuno MD Elevated blood pressure reading (Primary Dx); Right hip pain; Acute pain of left knee 11/02/2024 Travel 10/30/2024 Telephone [facility] [address] [place] [phone] Emma Nuno MD Referral 10/24/2024 Refill [facility] [address] [place], [place] [phone] Emma Nuno MD 10/08/2024 Refill [facility] [address] [place], [place] [phone] Emma Nuno MD 10/01/2024 Patient Outreach [facility] [address] [place], [place] [phone] Alfred Avila Recovery Supports 09/25/2024 Telephone [facility] [address] [place] [address] Waylon Virgen DMD returned call to camryn Virgen appt 09/25/2024 Orders Only [facility] [address] [place] [address] ChesterEleuterio tanner, DMD 09/20/2024 Telephone [facility] [address] [facility] [place] [address] Eleuterio Briggs, DMD 09/20/2024 Patient Outreach [facility] [address] [place] [address] Alfred Avila RC Recovery Supports 09/18/2024 Patient Outreach [address] [address] Alfred Avila [facility] Supports 09/17/2024 Patient Outreach [address] [address] Alfred Avila [facility] Supports 09/10/2024 Patient Outreach [address] [address] Alfred Avila [facility] Recovery Supports 09/03/2024 Patient Outreach [address] [address] Gissell Owens RC Recovery Supports 08/27/2024 Patient Outreach [address] [address] Alfred Avila [facility] Recovery Supports 08/20/2024 Patient Outreach [address] [address] Alfred Avila [facility] Recovery Supports 08/13/2024 Patient Outreach [address] [address] Alfred Avila [facility] Recovery Supports 08/08/2024 9:30 AM EST Office Visit [facility] [address] [place] [address] Waylon Virgen, DMD 08/07/2024 Patient Outreach [address] [address] Alfred Avila from Last 3 Months Immunizations Name Administration Dates Next Due Influenza injectable quadriv alent IIV4 with preservative 07/07/2016 Influenza injectable quadriv alent preservative free 05/09/2023,08/24/2020,09/28/2018,07/12 Influenza, seasonal, injecta ble, preservative free 06/27/2024,07/15/2014 Moderna Covid-19 Vaccine 12+ 12/17/2020,11/20/19 21 Pfizer Covid-19 Vaccine 12+ 06/27/2024, Pneumococcal Conjugate PCV 20 01/27/2023 Pneumococcal Polysaccharide PPSV23 07/07/2016 Tdap 02/02/2017,10/31/2013 Zoster, Recombinant 03/31/2023,01/27/2023 Family History Medical History Relation Name Comments Diabetes Maternal Grandfather Diabetes Maternal Grandmother Relation Name Status Comments Maternal Grandfather Maternal Grandmother Social History Tobacco Use Types Packs/Day Years Used Date Smoking Tobacco: Some Days Cigarettes Smokeless Tobacco: Never Tobacco Cessation:Ready to Q uit: Not Asked; Counseling Given: Not Answered Alcohol Use Standard Drinks/Week Comments Not Currently [...] is your housing situation today? I have krishnamilla rosales 06/21/[address] you [...] Orientation Straight 07/05/2022 10 :30 AM EDT Last Filed Vital Signs Vital Sign Reading Time Taken Comments Blood Pressure 154/97 11/02/2024 3:21 PM EST Pulse 91 11/02/2024 3:21 PM EST Temperature 37.4 ??C (99.3 ??F) 11/02/2024 3:21 PM ES T Respiratory Rate 17 11/02/2024 3:21 PM EST Oxygen Saturation 97% 11/02/2024 3:21 PM EST Inhaled Oxygen Concentration - - Weight 108 kg (238 lb) 11/02/2024 3:21 PM EST Height 167.6 cm (5' 6 ) 11/02/2024 3:21 PM EST Body Mass Index 38.41 11/02/2024 3:21 PM EST Plan of Treatment Health Maintenance Due Date Last Done Comments CT Colonography 1960 FIT DNA/Cologuard 1960 FIT 1960 FOBT 1960 Sigmoidoscopy 1960 Hepatitis A Vaccines (1 of 2 - Risk 2-dose series) 1981 Colonoscopy 04/29/2022 04/29/2017 Colorectal Cancer Screening 04/29/2022 Dental Oral Exam 05/12/2024 11/09/2023, 01/29/2021 Dental Prophylaxis 07/05/2024 01/03/2024, 05/18/2021 Dental X-Ray: Bitewings 11/09/2024 11/09/2023, 01/29 Alcohol/Substance Use Screening 01/02/2025 01/03/2024 Depression Screening 01/02/2025 01/03/2024, 01/03/20 24 SDOH Screening 01/02/2025 01/03/2024 Diabetes: Hemoglobin A1C 01/05/2025 01/06/2024, 0203/2022 Tobacco Screening 11/02/2025 11/02/2024 Dental X-Ray: Full Mouth 12/21/2026 12/21/2023, 01/04 DTaP/Tdap/Td Vaccines (3 - Td or Tdap) 02/02/2027 02/02/2017, 10/31/2013 Lipid Panel 01/05/2029 01/06/2024, 10/12/2021 RSV Patients and Patients Aged 60 years or older (1 - 1-dose 75+ series) 2037 Pneumococcal Vaccine: 50+ Years Completed 01/27/2023, 07/07/2016 Zoster Vaccines Completed 03/31/2023, 01/27/2023 HIV Screening Completed 01/06/2024 Hepatitis C Screening Completed 01/06/2024 COVID-19 Vaccine Completed 06/27/2024, 05/2024, 08/25/2021, Additional history exists Influenza Vaccine Completed 06/27/2024, , 08/24/2020, Additional history exists HIB Vaccines Aged Out No longer eligi ble based on patient's age to complete this topic HPV Vaccines Aged Out No longer eligi ble based on patient's age to complete this topic Hepatitis B Vaccines Aged Out No long er eligible based on patient's age to complete this topic IPV Vaccines Aged Out No longer eligi ble based on patient's age to complete this topic Meningococcal Vaccine Aged Out No olga garland eligible based on patient's age to complete this topic RSV under 20 months Aged Out No longe r eligible based on patient's age to complete this topic Rotavirus Vaccines Aged Out No longer eligible based on patient's age to complete this topic Procedures Procedure Name Priority Date/Time Associated Diagnosis Comments XR HIP 2 OR 3 VIEWS RIGHT Routine 11/02/2024 4:57 PM EST Right hip pain XR KNEE 3 VIEWS LEFT Routine 11/02/2024 4:54 PM EST Acute pain of left knee 3 EXTRACTION, ERUPTED TOOTH OR EXPOSED ROOT (ELEVATION/FORCEPS REMOVAL) Routine 08/08/2024 9:30 AM EST 30 EXTRACTION, ERUPTED TOOTH OR EXPOSED ROOT (ELEVATION/FORCEPS REMOVAL) Routine 08/08/2024 9:30 AM EST HEPATITIS C AB W/REFL TO HCV RNA, QN, PCR Routine 01/06/2024 2:11 PM EDT Routine screening for STI (sexually transmitted infection) HIV 1/2 ANTIGEN/ANTIBODY, FOURTH GENERATION W/RFL Routine 01/06/2024 2:11 PM EDT Routine screening for STI (sexually transmitted infection) HEMOGLOBIN A1C Routine 01/06/2024 2:11 PM EDT Class 2 obesity without serious comorbidity with body mass index (BMI) of 35.0 to 35.9 in adult, unspecified obesity type LIPID PANEL, STANDARD Routine 01/06/2024 2:11 PM EDT Class 2 obesity without serious comorbidity with body mass index (BMI) of 35.0 to 35.9 in adult, unspecified obesity type PROPHYLAXIS - ADULT Routine 01/03/2024 8 :00 AM EDT Dental calculus PANORAMIC RADIOGRAPHIC IMAGE Routine 12/21/2023 10:30 AM EDT Dental caries BITEWINGS - 4 RADIOGRAPHIC IMAGES Routine 11/09/2023 8:00 AM EST PERIODIC ORAL EVALUATION - ESTABLISHED PATIENT Routine 11/09/2023 8:00 AM EST HM COLONOSCOPY Routine 04/29/2017 7:45 AM EDT from Last 3 Months or Most Recently Relevant to Health Maintenance Results * XR Hip 2 or 3 Views Right (11/02/2024 4:57 PM EST) Anatomical Region Laterality Modality Lower Extremities, Hip Right Radiograp hic Imaging 11/02/2024 4:57 PM EST Narrative 11/02/2024 4:59 PM EST ? [facility] ?[address] ?[place] [address] ?XRay Report ? Signed ? Patient: Friedman,Harsha H ?MR#: [id number] ?? 139 ? : 1960 ?Acct:[id number] ? Age/Sex: 64 / M ?ADM Date: 02/28/25 ? Loc: HO.[facility]CL ? Attending Dr: Emma Nuno MD ? Ordering Physician: Emma Nuno ?? Date of Service: 11/02/24 ?? Procedure(s): XR hip RT min 2V ?? Accession Number(s): [id number] ? cc: Emma Nuno ? CLINICAL HISTORY: intermittent pain ? Three views of the right hip. ? COMPARISON: XR right hip dated 11/18/21 at 14:38 EDT ? FINDINGS: ?? Visualized portions of the proximal right femur appears intact. No ?? trabecular disruption or cortical discontinuity. ?? There is near-complete loss of right hip joint space. Prominent ?? osteophytes present along the femoral head. ?? Visualized portions of the pelvis appear intact. ? IMPRESSION: ?? 1. No radiographic evidence of acute injury to the right hip. ?? 2. Advanced degenerative changes of the right hip, worsened since prior ?? imaging. ? This document has been electronically signed by: Guerrero Sanchez MD on ?? 11/02/2024 16:57:46 ? Dictated By: ?Guerrero Sanchez MD ? Signed By: ?<Electronically signed by Guerrero Sanchez MD in OV> ?11/02/24 2249 ? DD/ 1657 ? TD/TT: 11/02/241656 ? Building Service Worker: ? Procedure Note Javierter, Image - 11/02/2024 [place] [address] XRay Report Signed Patient: Harsha Friedman R#: [id number] 139 : 2Acct:[id number] Age/Sex: 64 / MADM Date: 11/02/24 Loc: HO.[facility] Attending Dr: Emma Nuno MD Ordering Physician: Emma Nuno Date of Service: 11/02/24 Procedure(s): XR hip RT min 2V Accession Number(s): [id number] cc: Emma Nuno CLINICAL HISTORY: intermittent pain Three views of the right hip. COMPARISON: XR right hip dated 11/18/21 at 14:38 EDT FINDINGS: Visualized portions of the proximal right femur appears intact. No trabecular disruption or cortical discontinuity. There is near-complete loss of right hip joint space. Prominent osteophytes present along the femoral head. Visualized portions of the pelvis appear intact. IMPRESSION: 1. No radiographic evidence of acute injury to the right hip. 2. Advanced degenerative changes of the right hip, worsened since prior imaging. This document has been electronically signed by: Guerrero Sanchez MD on 11/02/2024 16:57:46 Dictated By: Guerrero Sanchez MD Signed By: <Electronically signed by Guerrero Sanchez MD in OV> 11/02/24 1659 DD/ 56 TD/TT: 11/02/241656 Building Service Worker: us Emma Nuno MD IMG XR PROCEDURES Final Result * XR Knee 3 Views Left (11/02/2024 4:54 PM EST) Anatomical Region Laterality Modality Lower Extremities, Knee Left Radiogra phic Imaging 11/02/2024 4:54 PM EST Narrative 11/02/2024 4:55 PM EST ? [facility] ?[address] ?[place] [address] ?XRay Report ? Signed ? Patient: Harsha Friedman ?MR#: [id number] ?? 139 ? : 1960 ?Acct:[id number] ? Age/Sex: 64 / M ?ADM Date: 11/02/24 ? Loc: HO.[facility]CL ? Attending Dr: Emma Nuno MD ? Ordering Physician: Emma Nuno ?? Date of Service: 11/02/24 ?? Procedure(s): XR knee LT 3V ?? Accession Number(s): [id number] ? cc: Emma Nuno ? CLINICAL HISTORY: pain and swelling ? Three views of the left knee. ? COMPARISON: None ? FINDINGS: ? No appreciable suprapatellar joint effusion. ?? Joint spaces are maintained. Small osteophytes present along the patella. ?? Visualized portions of the distal femur, patella, and proximal tibia and ?? fibula appear intact. ? IMPRESSION: ? 1. No radiographic evidence of acute injury to the left knee. ?? 2. Mild patellofemoral degenerative changes of the left knee. ? This document has been electronically signed by: Guerrero Sanchez MD on ?? 11/02/2024 16:54:04 ? Dictated By: ?Guerrero Sanchez MD ? Signed By: ?<Electronically signed by Guerrero Sanchez MD in OV> ?11/02/241653 ? DD/ 53 ? TD/TT: 11/02/241653 ? Building Service Worker: ? Procedure Note Donotuseinterpreter, Image - 11/02/[address] [address] XRay Report Signed Patient: Harsha Friedman HMR#: [id number] 139 : 2Acct:[id number] Age/Sex: 64 / MADM Date: 11/02/24 Loc: HO.[facility] Attending Dr: Emma uNno MD Ordering Physician: Emma Nuno Date of Service: 11/02/24 Procedure(s): XR knee LT 3V Accession Number(s): [id number] cc: Emma Nuno CLINICAL HISTORY: pain and swelling Three views of the left knee. COMPARISON: None FINDINGS: No appreciable suprapatellar joint effusion. Joint spaces are maintained. Small osteophytes present along the patella. Visualized portions of the distal femur, patella, and proximal tibia and fibula appear intact. IMPRESSION: 1. No radiographic evidence of acute injury to the left knee. 2. Mild patellofemoral degenerative changes of the left knee. This document has been electronically signed by: Guerrero Sanchez MD on 11/02/2024 16:54:04 Dictated By: Guerrero Sanchez MD Signed By: <Electronically signed by Guerrero Sanchez MD in OV> 11/02/24 1654 DD/ 1654 TD/TT: 11/02/24 1654 Building Service Worker: Emma Nuno MD IMG XR PROCEDURES Final Result * Hepatitis C Antibody with Reflex to HCV, RNA, Quantitative, Real-Time PCR (01/06/2024 2:11 PM EDT) Hepatitis C Antibody Nonreactive Nonreactive [facility] Comment:Antibodies to HCV no t detected; does not exclude early acuteHCV infection. Blood Venous blood specimen / Unknown 01/06/2024 2:11 PM EDT 01/06/2024 2:11 PM EDT us Emma Nuno MD LAB BLOOD ORDERABLES Final Res ult Performing Organization Address City/[facility]/ZIP Co de Phone Number [facility] [address] [place] [phone] * HIV-1/2 Antigen and Antibodies, Fourth Generation, with Reflexes (01/06/2024 2:11 PM EDT) HIV AB/AG Nonreactive Nonreactive [facility] Comment:HIV-1 p24 Ag and/or HIV-1/HIV-2 Ab not detected.A test result that is nonreactive does not exclude thepossibility of exposure to or infection with HIV-1 and/orHIV-2. Nonreactive results in this assay for individualswith prior exposure to HIV-1 and/or HIV-2 may be due toantigen and antibody levels that are below the limit ofdetection of this assay.The [employer] HIV Ag/Ab Combo assay result andsupplemental assay results should be interpreted inconjunction with the patient's clinical presentation,history and other laboratory results. If the results areinconsistent with clinical evidence, additional testing issuggested to confirm the result. Blood Venous blood specimen / Unknown 01/06/2024 2:11 PM EDT 01/06/2024 2:11 PM EDT Emma Nuno MD LAB BLOOD ORDERABLES Final Res ult Performing Organization Address [facility]/ZIP Co de Phone Number [facility] [address] [place] [phone] * (ABNORMAL) Hemoglobin A1c (01/06/2024 2:11 PM EDT) Hemoglobin A1c 6.1(H) <6.0 % [facility] Comment:Hemoglobin A1C Refer ence Range Adults: 4.8 - 6.0 % Non diabetic: < 6.0 % Goal: < 7.0 %Additional Action Suggested: > 8.0 %Note: Hemoglobin A1c results are invalid for patients with abnormal amounts of HbF. Blood transfusions may impact the HbA1c concentration in the patient sample. Estimated Average Glucose 128 mg/dL [facility] Comment:eAG = Estimated ave rage glucose which is %A1C expressed asaverage glucose, using the formula of the V4S-VwgurmwNqefksv Glucose study (ADAG), Diabetes Care, Vol.31,#8,Apr. 2007 Blood Venous blood specimen / Unknown 01/06/2024 2:11 PM EDT 01/06/2024 2:11 PM EDT Emma Nuno MD LAB BLOOD ORDERABLES Final Res ult [facility] [address] [place] [address] [phone] * (ABNORMAL) Lipid Panel, Standard (01/06/2024 2:11 PM EDT) Triglycerides 256(H) <150 mg/dL [facility] Comment:Desirable Triglyceri de: less than 150 mg/dLBorderline High Triglyceride 150-199 mg/dLHigh Triglyceride: 200-499 mg/dLVery High Triglyceride: greater than or equal to 5OO mg/dL Cholesterol 150 <200 mg/dL [facility] Comment:Desirable Cholestero l: less than 200 mg/dLBorderline High Cholesterol: 200-239 mg/dLHigh Cholesterol: greater than 239 mg/dL LDL Cholesterol Calculated 64 <100 mg/dL [facility] Comment:Desirable LDL: less than 100 mg/dLNear Optimal/Above Optimal LDL: 110- 129 mg/dLBorderline High LDL: 130-159 mg/dLHigh LDL: 160-189 mg/dLVery High LDL: greater than or equal to 190 mg/dL HDL Cholesterol 35(L) >40 mg/dL [facility] Comment:Desirable HDL: great er than 40 mg/dL Note: This HDL assay may give artificially low results in patients with liver disease. Blood Venous blood specimen / Unknown 01/06/2024 2:11 PM EDT 01/06/2024 2:11 PM EDT Emma Nuno MD LAB BLOOD ORDERABLES Final Res ult [facility] [address] [place] [phone] * Hm Colonoscopy (04/29/2017 7:45 AM EDT) us Historical Provider MD HEALTH MAINTENANCE Final Result from Last 3 Months or Most Recently Relevant to Health Maintenance Insurance [facility] - [facility] Care Teams Medical Laboratory Specialist Relationship Specialty Start Date End Date Emma Nuno MD [address] [place] [address] PCP - General Family Medicine 09/19/20
--- OUTSIDE RECORDS SUMMARY | 2024-11-02 17:52 | XMS_ITS | Encounter Summary ---
Author Organization [employer] Address [address] [place] [address] Care Team Providers Care Operations Team Leader Name Role Phone Emma Nuno MD Primary Care Provider [phone] Encounter Details Date Type Department Care Team (Latest Contact Info) Description 11/02/2024 Travel Social History Tobacco Use Types Packs/Day Years [...] documented as of this encounter Care Teams Operations Team Leader Relationship Specialty Start Date End Date Emma Nuno MD [address] [place] [address] PCP - General Family Medicine 09/19/20 documented as of this encounter
--- OUTSIDE RECORDS SUMMARY | 2024-11-02 17:52 | XMS_ITS | Encounter Summary ---
Author Organization [employer] Address [address] [place] [address] Care Team Providers Care Waste Oil Pumper Name Role Phone Emma Nuno MD Primary Care Provider [phone] Encounter Details Date Type Department Care Team (Late st Contact Info) Description 01/11/2024 Orders Only [facility] [address] [place], [place] [phone] Provider, MD Rubi Social History Tobacco Use Types Packs/Day Years [...] on file documented as of this encounter Procedures Procedure Name Priority Date/Time Associated Diagnosis Comments HM COLONOSCOPY Routine 04/29/2017 7:45 AM EDT documented in this encounter Results * Hm Colonoscopy (04/29/2017 7:45 AM EDT) Historical Provider HEALTH MAINTENANCE Final Result documented in this encounter Visit Diagnoses Not on filedocumented in this encounter Additional Health Concerns Assessment Noted Time PHQ-9 Depression Total Score: 0 01/03/20 24 10:42 AM EDT documented as of this encounter Care Teams Waste Oil Pumper Relationship Specialty Start Date End Date Emma Nuno MD [address] [place] [address] PCP - General Family Medicine 09/19/20 documented as of this encounter
--- OUTSIDE RECORDS SUMMARY | 2024-11-02 17:52 | XMS_ITS | Encounter Summary ---
Author Organization [employer] Address [address] [place] [address] Care Team Providers Care Waste Water Treatment Plant Operator Name Role Phone Emma Nuno MD Primary Care Provider [phone] Reason for Visit * Reason Onset Date Comments Referral 10/30/2024 Encounter Details Date Type Department Care Team ([facility] st Contact Info) Description 10/30/2024 Telephone [facility] [address] [place], [place] [phone] Emma Nuno MD [address] [place], [place] [phone] Referral Social History Tobacco Use Types Packs/Day Years [...] encounter Miscellaneous Notes * Telephone Encounter - Suellen John RN - 10/30/2024 9:50 AM EST TC placed to patient [phone] in regards to below message. Patient reports he has pain on his Rlower back pain, R hip pain and R leg pain. Patient reports he had surgery in and has always had pain in these areas. RN inquired if the pain has worsened however patient reports it's weird because the pain is intermittent . Patient reports at times he also has numbness and tingling of the extremities which is also intermittent. Patient denies bladder and bowel changes. Patient scheduled for appointment with provider for 11/02/24 at 3:15pm for further discussion and PT referral. Patient agreed to appointment date and time. Patient to f/u PRN. * Telephone Encounter - Brent Lazcano - 10/30/2024 9:10 AM EST TC from pt requesting a Referral for Physical Therapy due Hip and Back Pain. Pt would like the Referral to be too [facility]. Contact pt at [phone] documented in this encounter Plan of Treatment Not on file documented as of this encounter Visit Diagnoses Not on filedocumented in this encounter Additional Health Concerns Assessment Noted Time PHQ-9 Depression Total Score: 0 01/03/20 24 10:42 AM EDT documented as of this encounter Care Teams Waste Water Treatment Plant Operator Relationship Specialty Start Date End Date Emma Nuno MD [address] [place] [address] PCP - General Family Medicine 09/19/20 documented as of this encounter
--- OUTSIDE RECORDS SUMMARY | 2024-11-02 17:52 | XMS_ITS | Encounter Summary ---
Author Organization [employer] Address [address] 7[address] [place] [address] Care Team Providers Care Printed Circuit Board Panels Trimmer Name Role Phone Emma Nuno MD Primary Care Provider Reason for Visit * Reason Comments Med Refill Encounter Details Date Type Department Care Team ([facility] st Contact Info) Description 03/31/2024 Refill [facility] [address] [place], [place] [phone] Georgia Corral DO [address] [place], [place] [phone] Social History Tobacco Use Types Packs/Day Years [...] documented as of this encounter Care Teams Printed Circuit Board Panels Trimmer Relationship Specialty Start Date End Date Emma Nuno MD [address] [place] [address] PCP - General Family Medicine 09/19/20 documented as of this encounter
--- OUTSIDE RECORDS SUMMARY | 2024-11-02 17:52 | XMS_ITS | Encounter Summary ---
Author Organization [employer] Address [address] 7[address] [place] [address] Care Team Providers Care Quantitative Analyst Name Role Phone Emma Nuno MD Primary Care Provider [phone] Reason for Visit * Reason Onset Date Comments returned call to [employer] appt Encounter Details Date Type Department Care Team (Late st Contact Info) Description 09/25/2024 Telephone [facility] [address] [place] [address] Waylon Virgen DMD [address] [place], [place] [phone] returned call to [employer] appt Social History Tobacco Use Types Packs/Day Years [...] encounter Miscellaneous Notes * Telephone Encounter - Monica Diggs - 09/25/2024 1:19 PM EST Patient returning call placed to reschedule Oral Surgery appt. It is listed as reschedule. Please reach out to patient or rescheduling DR documented in this encounter Plan of Treatment Not on file documented as of this encounter Visit Diagnoses Not on filedocumented in this encounter Additional Health Concerns Assessment Noted Time PHQ-9 Depression Total Score: 0 01/03/20 24 10:42 AM EDT documented as of this encounter Care Teams Quantitative Analyst Relationship Specialty Start Date End Date Emma Nuno MD [address] [place] [address] PCP - General Family Medicine 09/19/20 documented as of this encounter
--- OUTSIDE RECORDS SUMMARY | 2024-11-02 17:52 | XMS_ITS | Encounter Summary ---
Author Organization [employer] Address [address] 7[address] [place] [address] Care Team Providers Care Housekeeping Director Name Role Phone Emma Nuno MD Primary Care Provider [phone] Reason for Referral * Consultation (Routine) - Closed Specialty Diagnoses / Procedures Referred By Contac t Referred To Contact Audiology Diagnoses Bilateral hearing loss, unspecified hearing loss type Emma Nuno MD [address] [place] [address] Phone: tel: fax: [facility] Audiology [address] Floor [place], [place] Phone: tel: fax: Referral ID Status Reason Start Date Expiration Date V isits Requested Visits Authorized [id number] Closed Specialty Services Required 01/09/2024 01/08/2025 1 1 Encounter Details Date Type Department Care Team (Late st Contact Info) Description 01/09/2024 Orders Only [facility] [address] [place] [address] Emma Nuno MD [address] [place], [place] [phone] Bilateral hearing loss, unspecified hearing loss type (Primary Dx) Social History Tobacco Use Types [...] as of this encounter Plan of Treatment Scheduled Referrals Name Type Priority Associated Diagnoses Orde r Schedule Referral to Audiology Outpatient Referral Routine Bilateral hearing loss, unspecified hearing loss type Expected: 01/09/2024 (Approximate), Expires: 01/08/2025 documented as of this encounter Visit Diagnoses Diagnosis Bilateral hearing loss, unspecified hearing loss type- Primary documented in this encounter Additional Health Concerns Assessment Noted Time PHQ-9 Depression Total Score: 0 01/03/20 24 10:42 AM EDT documented as of this encounter Care Teams Housekeeping Director Relationship Specialty Start Date End Date Emma Nuno MD [address] [place] [address] PCP - General Family Medicine 09/19/20 documented as of this encounter
--- OUTSIDE RECORDS SUMMARY | 2024-11-02 17:52 | XMS_ITS | Encounter Summary ---
Author Organization [employer] Address [address] [place] [address] Care Team Providers Care Allergist Name Role Phone Emma Nuno MD Primary Care Provider [phone] Reason for Visit * Reason Comments Follow-up Encounter Details Date Type Department Care Team ([facility] st Contact Info) Description 11/02/2024 3:15 PM EST Office Visit [facility] [address] [place], [place] [phone] Emma Nuno MD [address] [place] [address] Elevated blood pressure reading (Primary Dx); Right hip pain; Acute pain of left knee Social History Tobacco Use Types Packs/Day Years [...] the past 12 months, has t he [employer], gas, oil or water company threatened to [...] AM EDT documented as of this encounter Last Filed Vital Signs Vital Sign Reading [...] Mass Index 38.41 11/02/2024 3:21 PM EST documented in this encounter Plan of Treatment Scheduled Orders Name Type Priority Associated Diagnoses Orde r Schedule Hemoglobin A1c Lab Routine Elevated blood pressure reading Expected: 11/02/2024 (Approximate), Expires: 11/02/2025 Comprehensive Metabolic Panel Lab Routine Elevated blood pressure reading Expected: 11/02/2024 (Approximate), Expires: 11/02/2025 documented as of this encounter Procedures Procedure Name Priority Date/Time Associated Diagnosis Comments XR HIP 2 OR 3 VIEWS RIGHT Routine 11/02/2024 4:57 PM EST Right hip pain XR KNEE 3 VIEWS LEFT Routine 11/02/2024 4:54 PM EST Acute pain of left knee documented in this encounter Results * XR Hip 2 or 3 Views Right (11/02/2024 4:57 PM EST) Anatomical Region Laterality Modality Lower Extremities, Hip Right Radiograp hic Imaging 11/02/2024 4:57 PM EST Narrative 11/02/2024 4:59 PM EST ? [facility] ?[address] ?[place] [address] ?XRay Report ? Signed ? Patient: Harsha Friedman ?MR#: [id number] ?? 139 ? : 1960 ?Acct:[id number] ? Age/Sex: 64 / M ?ADM Date: 11/02/24 ? Loc: HO.HHCL ? Attending Dr: Emma Nuno MD ? Ordering Physician: Emma Nuno ?? Date of Service: 11/02/24 ?? Procedure(s): XR hip RT min 2V ?? Accession Number(s): [id number] ? cc: Emma Nuno ? CLINICAL HISTORY: [...] signed by Guerrero Sanchez MD in OV> ?11/02/241658 ? DD/ 56 ? TD/TT: 11/02/241656 ? Log Skidder: ? Procedure Note Cherrie, Image - 11/02/[address] [address] XRay Report Signed Patient: Harsha Friedman HMR#: [id number] 139 : 2Acct:[id number] Age/Sex: 64 / MADM Date: 11/02/24 Loc: HO.HHCL Attending Dr: Emma Nuno MD Ordering Physician: Emma Nuno Date of Service: 11/02/24 Procedure(s): XR hip RT min 2V Accession Number(s): [id number] cc: Emma Nuno CLINICAL HISTORY: intermittent pain [...] Sanchez MD in OV> 11/02/24 1659 DD/ 1657 TD/TT: 11/02/24 1657 Log Skidder: Emma Nuno MD IMG XR PROCEDURES Final Result * XR Knee 3 Views Left (11/02/2024 4:54 PM EST) Anatomical Region Laterality Modality Lower Extremities, Knee Left [facility] 11/02/2024 4:54 PM EST Narrative 11/02/2024 4:55 PM EST ? [facility] ?[address] ?[place] [address] ?XRay Report ? Signed ? Patient: Friedman,Harsha H ?MR#: [id number] ?? 139 ? : 1960 ?Acct:[id number] ? Age/Sex: 64 / M ?ADM Date: 02/28/25 ? Loc: HO.HHCL ? Attending Dr: Emma Nuno MD ? Ordering Physician: Emma Nuno ?? Date of Service: 11/02/24 ?? Procedure(s): XR knee LT 3V ?? Accession Number(s): [id number] ? cc: Emma Nuno ? CLINICAL HISTORY: [...] by Guerrero Sanchez MD in OV> ?11/02/24 1654 ? DD/ 1654 ? TD/TT: 11/02/241653 ? Log Skidder: ? Procedure Note Cherrie, Jerald - 11/02/2024 [place] [address] XRay Report Signed Patient: Harsha Friedman R#: [id number] 139 : 2Acct:[id number] Age/Sex: 64 / MADM Date: 11/02/24 Loc: HO.[facility] Attending Dr: Emma Nuno MD Ordering Physician: Emma Nuno Date of Service: 11/02/24 Procedure(s): XR knee LT 3V Accession Number(s): [id number] cc: Emma Nuno CLINICAL HISTORY: pain and [...] Sanchez MD in OV> 11/02/24 1654 DD/ 53 TD/TT: 11/02/241653 Log Skidder: Emma Nuno MD IMG XR PROCEDURES Final Result documented in this encounter Visit Diagnoses Diagnosis Elevated blood pressure reading- Primary Elevated blood pressure reading without diagnosis of hypertension Right hip pain Pain in joint, pelvic region and thigh Acute pain of left knee documented in this encounter Additional Health Concerns Assessment Noted Time PHQ-9 Depression Total Score: 0 01/03/20 24 10:42 AM EDT documented as of this encounter Care Teams Allergist Relationship Specialty Start Date End Date Emma Nuno MD [address] [place] [address] PCP - General Family Medicine 09/19/20 documented as of this encounter
[2024-11-02 18:06] LABS: Alanine Aminotransferase 26 U/L (0-40); Albumin Level 3.9 g/dL (3.5-5.0); Alkaline Phosphatase 82 U/L (39-117); Anion Gap 12 (12-20); Aspartate Amino Transferase 23 U/L (5-37); Bilirubin Total 0.3 mg/dL (0.0-1.0); Blood Urea Nitrogen 13 mg/dL (9-16); Calcium 9.1 mg/dL (8.4-10.2); Carbon Dioxide 29 mmol/L (22-29); Chloride 102 mmol/L (96-108); Estimated Glomerular Filt Rate > 60; Glucose Random 141 mg/dL (60-115); Potassium 4.1 mmol/L (3.3-5.1); Sodium 139 mmol/L (135-145); Total Protein 7.3 g/dL (6.5-8.0)
[2024-11-02 18:08] LABS: Estimated Average Glucose 169 mg/dL; Hemoglobin A1c % 7.5 % (<6.0); Total Hemoglobin (HGBA1C) 4106.3787 umol/L
== END 2024-11-02 15:54 | disposition home or self-care (01) ==
LOC: HO.HHCL 15:53
PROVIDERS: Visit Provider General Practice
DX: M25.551 Pain in right hip (principal); M25.562 Pain in left knee; R03.0 Elevated blood-pressure reading, without diagnosis of hypertension; Z13.1 Encounter for screening for diabetes mellitus
CPT/HCPCS: 36415; 73502; 73562; 80053; 83036

== ENCOUNTER → 2024-11-02 16:02 | Outpatient (BNV) | payer OTHER, SELFPAY | PROVIDERS: Visit Provider Radiology Diagnostic Radiology | DX: M25.551 Pain in right hip (principal); M16.11 Unilateral primary osteoarthritis, right hip; M25.561 Pain in right knee; M17.11 Unilateral primary osteoarthritis, right knee | CPT/HCPCS: 73502; 73562 ==

== ENCOUNTER 2025-01-30 12:22 | Outpatient (REF) | payer OTHER, SELFPAY ==
--- OUTSIDE RECORDS SUMMARY | 2025-01-31 12:24 | XMS_ITS | Encounter Summary ---
Author Organization [employer] [facility] Address [address] [place] [address] 7t [place] [address] Care Team Providers Care Infection Control Manager Name Role Phone Emma Nuno MD Primary Care Provider [phone] Encounter Details Date Type Department Care Team (Late st Contact Info) Description 11/04/2022 Orders Only [facility] [address] [place] [address] Georgia Lanier LPN Social History Tobacco Use Types Packs/Day Years Used Date Smoking Tobacco: Never Assessed Sex and Gender Information Value Date Recorded Sex Assigned at Male 07/05/2022 10:30 AM EDT Legal Sex Male 10:30 AM EDT Gender Identity Male 07/05/2022 10:30 AM EDT Sexual Orientation Straight 07/05/2022 10 :30 AM EDT documented as of this encounter Plan of Treatment Upcoming Encounters Date Type Department Care Team (Late st Contact Info) Description 02/04/2025 8:00 AM EDT Office Visit [facility] [address] [place] [address] Hema Bro 02/08/2025 8:00 AM EDT Office Visit [facility] [address] [place] [address] Eleuterio Briggs, ZHAO [address] [place] [address] documented as of this encounter Visit Diagnoses Not on filedocumented in this encounter Care Teams Infection Control Manager Relationship Specialty Start Date End Date Emma Nuno MD [address] [place] [address] PCP - General Family Medicine 09/19/20 documented as of this encounter
== END 2025-01-30 12:23 | disposition home or self-care (01) ==
LOC: HO.HHCLNP 12:22
PROVIDERS: Visit Provider General Practice
DX: R30.0 Dysuria (principal)
CPT/HCPCS: 87086

== ENCOUNTER 2025-04-23 08:32 | Outpatient (REF) | payer OTHER, SELFPAY ==
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
--- OUTSIDE RECORDS SUMMARY | 2025-04-23 09:16 | XMS_ITS | Clinical Summary ---
Author Organization [address] [place] [address] Address [address] [place] [address] Phone Care Team Providers Care Business And Services Instructor Name Role Phone Emma Nuno MD Primary Care Provider [phone] Allergies No known active allergies Medications No known medications Encounters Date Type Department Care Team Description 04/03/2025 Lab Requisition [facility] Lab [address] [place] [phone] Markos Negron MD Urinary tract infection, site not specified 04/01/2025 9:45 AM EDT Consult Orthopedic Surgery - [place] [address] [facility] [address] [place] [phone] Gaetano Medina, DPM Type 2 diabetes mellitus without complications (CMS/HCC V24, CMS/HCC V28) 02/20/2025 Lab Requisition [facility] Lab [address] [place] [phone] Gillian Snyder PA Urinary tract infection, site not specified 02/19/2025 Lab Requisition [facility] Lab [address] [place] [address] Markos Negron MD Gross hematuria 02/12/2025 Lab Requisition [facility] Lab [address] [place] [phone] Markos Negron MD Gross hematuria from Last 3 Months Social History Tobacco Use Types Packs/Day Years Used Date Smoking Tobacco: Never Assessed Sex and Gender Information Value Date Recorded Sex Assigned at Not on file Legal Sex Male 10:12 AM EST Gender Identity Not on file Sexual Orientation Not on file Last Filed Vital Signs Vital Sign Reading Time Taken Comments Blood Pressure - - Pulse - - Temperature - - Respiratory Rate - - Oxygen Saturation - - Inhaled Oxygen Concentration - - Weight 108 kg (239 lb) 04/01/2025 10:20 AM EDT Height 167.6 cm (5' 6 ) 04/01/2025 10:20 AM EDT Body Mass Index 38.58 04/01/2025 10:20 AM EDT Plan of Treatment Upcoming Encounters Date Type Department Care Team (Late st Contact Info) Description 07/03/2025 9:30 AM EDT Office Visit Orthopedic Surgery - [place] [address] [phone] Gaetano Medina, SHARIF [address] [address] Health Maintenance Due Date Last Done Comments Diabetes: Annual GFR (Glomerular Filtration Rate) 1962 Diabetes: Annual Foot Exam 01/11/1972 Diabetes: Annual Retina Eye Exam 01/11/1972 Hepatitis A Vaccines (1 of 2 - Risk 2-dose series) 1981 Colorectal Cancer Screening: Colonoscopy 08/03/2022 Medicare Annual Wellness Visit 08/03/2022 Social Influencers of Health Screening 08/03/2022 Depression Screening 09/05/2024 Diabetes: Annual Urine Albumin-Creatinine Ratio (uACR) 11/23/2024 Influenza Vaccine (#1) 2025 , 05/09/2023, 08/24/2020, Additional history exists Diabetes: Blood Sugar Control Test (HGBA1C) 08/02/2025 01/30/2025 DTaP,Tdap,and Td Vaccines (3 - Td or Tdap) 02/02/2027 02/02/2017, 10/31/2013 Cholesterol Screening (Lipid Panel) 01/05/2029 01/06/2024 RSV Immunization Adult Patients (1 - 1-dose 75+ series) 2037 Pneumococcal Vaccine: 50+ Years Completed 01/27/2023, 07/07/2016 Zoster Vaccines Completed 03/31/2023, 01/27/2023 HIV Screening Completed 01/06/2024 Hepatitis C Screening Completed 01/06/2024 COVID-19 Vaccine Completed 06/27/2024, 05/2024, 12/17/2020, Additional history exists HIB Vaccines Aged Out [...] on patient's age to complete this topic MMR Vaccines Aged Out No longer eligi ble based on patient's age to complete this topic Meningococcal ACWY Vaccine Aged Out N o longer eligible based on patient's age to complete this topic Meningococcal B Vaccine Aged Out No l onger eligible based on patient's age to complete this topic RSV Immunization Patients Under 20 months Aged Out No longer eligible based on patient's age to complete this topic Varicella Vaccines Aged Out No longer eligible based on patient's age to complete this topic Procedures Procedure Name Priority Date/Time Associated Diagnosis Comments CULTURE URINE Routine 04/03/2025 9:00 AM EDT Urinary tract infection, site not specified CULTURE URINE Routine 02/20/2025 12:00 AM EDT Urinary tract infection, site not specified CULTURE URINE Routine 02/12/2025 1:00 PM EDT Gross hematuria AP OUTSIDE CONSULT Routine 02/12/2025 12 :00 AM EDT Gross hematuria from Last 3 Months Results * (ABNORMAL) Culture urine (04/03/2025 9:00 AM EDT) Only the most recent of3 resultswithin the time period is included. Culture, Urine >=100,000 CFU/mL Staphylococcus epidermidis(A) PITO 04/06/2025 8:[address] [facility] Comment: The organism value for this result has been updated. These results have been appended to the previously preliminary verified report. Edited result: Previously reported as Gram Positive Cocci on 04/05/2025 at 1309 EDT. Urine Urine specimen obtained by clean catch procedure / Unknown Non-blood Collection / Unknown 04/03/2025 9:00 AM EDT 04/03/2025 5:22 PM EDT Narrative Organism Antibiotic Method Susceptibility Staphylococcus epidermidis Benzylpenicillin PITO >=0.5 ug/ml: Resistant Staphylococcus epidermidis Oxacillin PITO >=4 ug/ml: Resistant Staphylococcus epidermidis Gentamicin PITO <=0.5 ug/ml: Susceptible Staphylococcus epidermidis Ciprofloxacin PITO >=8 ug/ml: Resistant Staphylococcus epidermidis Levofloxacin PITO >=8 ug/ml: Resistant Staphylococcus epidermidis Quinupristin/Dalfopristin M IC <=0.25 ug/ml: Susceptible Staphylococcus epidermidis Linezolid PITO 1 ug/ml: Susceptible Staphylococcus epidermidis Vancomycin PITO 1 ug/ml: Susceptible Staphylococcus epidermidis Tetracycline PITO 2 ug/ml: Susceptible Staphylococcus epidermidis Nitrofurantoin PITO <=16 ug/ml: Susceptible Staphylococcus epidermidis Rifampin PITO <=0.5 ug/ml: Susceptible Markos Negron MD LAB MICROBIOLOGY - GENERAL ORDERABLES Final Result [facility] [address] [place] [address], * Anatomic pathology outside consult (02/12/2025 12:00 AM EDT) Final Diagnosis A. Urine, Voided, ([id number]): Negative for high grade urothelial carcinoma. Acute inflammatory cells are present. Results of UroVysion fluorescence in situ hybridization (FISH) testing: CEP3: Normal CEP7: Normal CEP17: Normal LSI 9p21: Normal Interpretation: Normal profile Controls stained appropriately. Note: The results are intended as a screening device and should be interpreted in association with other clinical and pathological findings. 03/01/2025 9:[address] [facility] Clinical Information Gross hematuria R31.0 Urine Cytology/FISH (now) 03/01/2025 9:[address] [facility] Gross Description A. Urine, Voided, ([id number]): Received one ThinPrep slide for cytology and one ThinPrep slide for UroVysion FISH 03/01/2025 9:[address] [facility] Disclaimer Unless otherwise specified, all tissue is 10% NB formalin fixed and paraffin embedded. Technical pathology services provided by [facility] at [address], [place] [address] (CLIA #[id number]/Annalise Tavares MD, Cytology Teacher) 03/01/2025 9:[address] [facility] Tissue Urine specimen from urethra / Unknown 02/12/2025 02/19/2025 4:17 PM EDT us Markos Negron MD LAB PATHOLOGY ORDERABLES Fi nal Result [facility] [address] [place] [address], from Last 3 Months Additional Health Concerns Infection Onset Date Last Indicated MRSA 02/20/2025 02/20/2025 Insurance , [address] [address] [facility] MEDICARE Member Subscriber Plan / Payer (Ef fective 2017-Present) Name:FRIEDMANDAVE RAI Relation to Subscriber:Self Name:Dave Friedman CharliCoy Payer ID:[id number] Group ID:[id number] Type:Not on file Address: [place] [facility] [place] [address] Care Teams Business And Services Instructor Relationship Specialty Start Date End Date Emma Nuno MD [address] [place] [address] PCP - General Academic Advisor 02/20/25
--- OUTSIDE RECORDS SUMMARY | 2025-04-23 09:16 | XMS_ITS | Encounter Summary ---
Author Organization [employer] Address [address] [place] [address] Care Team Providers Care Electron Tube Assembler Name Role Phone Emma Nuno MD Primary Care Provider [phone] Encounter Details Date Type Department Care Team (Late st Contact Info) Description 01/11/2024 Orders Only [facility] [address] [place] [address] Provider, MD Rubi Social History Tobacco Use [...] Care Team (Late st Contact Info) Description 05/03/2025 1:30 PM EDT Office Visit [facility] [address] [place] [phone] Emma Nuno MD [address] [place] [address] documented as of this encounter Procedures Procedure [...] documented as of this encounter Care Teams Electron Tube Assembler Relationship Specialty Start Date End Date Emma Nuno MD [address] [place] [phone] PCP - General Family Medicine 09/19/20 documented as of this encounter
[2025-04-23 11:03] LABS: MANUAL DIFF FLAG NO
[2025-04-23 11:20] LABS: Hematocrit 47.2 % (42.0-52.0); Hemoglobin 15.4 g/dl (14.0-18.0); Imm Gran Abs Auto 0.03 X10*3/uL (0.00-0.03); Imm Gran Pct Auto 0.3 % (0.0-0.4); Lymphocytes Absolute Auto 2.4 X10*3/uL (1.2-4.9); Mean Corpuscular HGB Conc 32.6 g/dl (31.0-36.0); Mean Corpuscular Hemoglobin 29.2 pg (27.0-33.0); Mean Corpuscular Volume 89.6 fL (80.0-98.0); NRBC Abs Auto 0.000 X10*3/uL (0.0-0.012); NRBC Pct Auto 0.0 /100WBC (0.0-0.2); Platelet Count 296 X10*3/uL (160-400); Red Blood Count 5.27 X10*6/uL (4.60-5.80); White Blood Count 9.3 X10*3/uL (4.8-10.8)
[2025-04-23 11:45] LABS: Alanine Aminotransferase 23 U/L (0-40); Albumin Level 4.4 g/dL (3.5-5.0); Alkaline Phosphatase 65 U/L (39-117); Anion Gap 13 (12-20); Aspartate Amino Transferase 25 U/L (5-37); Blood Urea Nitrogen 9 mg/dL (9-16); Calcium 9.0 mg/dL (8.4-10.2); Carbon Dioxide 28 mmol/L (22-29); Chloride 103 mmol/L (96-108); Estimated Glomerular Filt Rate > 60; Potassium 4.5 mmol/L (3.3-5.1); Sodium 139 mmol/L (135-145); Total Protein 7.1 g/dL (6.5-8.0)
== END 2025-04-23 08:33 | disposition home or self-care (01) ==
LOC: HO.HHCL 08:32
PROVIDERS: PCP General Practice
DX: E11.9 Type 2 diabetes mellitus without complications (principal)
CPT/HCPCS: 36415; 80053; 84443; 85025

== ENCOUNTER 2025-07-05 11:40 | Outpatient (REF) | payer OTHER, SELFPAY ==
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
[2025-07-05 13:14] LABS: MANUAL DIFF FLAG NO
--- OUTSIDE RECORDS SUMMARY | 2025-07-05 13:18 | XMS_ITS | Encounter Summary ---
Author Organization [employer] Address [address] [place] [address] 7t [place] [address] Care Team Providers Care Passenger Car Upholsterer Apprentice Name Role Phone Emma Nuno MD Primary Care Provider [phone] Jackie Viveros PharmD Unavailable Reason for Referral * Consultation (Routine) - Closed Specialty Diagnoses / Procedures Referred By Contalton t Referred To Contact Audiology Diagnoses Bilateral hearing loss, unspecified hearing loss type Emma Nuno MD [address] [place] [address] Phone: tel: fax: [facility] [address] Floor [place], [place] Phone: tel: fax: Referral ID Status Reason Start Date Expiration Date V isits Requested Visits Authorized [id number] Closed Specialty Services Required 01/09/2024 01/08/2025 1 1 Encounter Details Date Type Department Care Team (Late st Contact Info) Description 01/09/[address] [facility] [address] [place] [address] [phone] Emma Nuno MD [address] [place], [place] [phone] Bilateral hearing loss, unspecified hearing loss type [...] Description 07/08/2025 11:30 [address] EST [address] [facility] OPTOMETRY [address] [place] [address] Xander, Nicki, OD [address] [place] [address] 07/29/2025 9:30 AM EST Medication Management [facility] [address] [place] [address] Jackie Viveros PharmD [address] [place] [address] Scheduled Referrals Name Type Priority Associated Diagnoses [...] documented as of this encounter Care Teams Passenger Car Upholsterer Apprentice Relationship Specialty Start Date End Date Emma Nuno MD [address] [place] [address] PCP - General Family Medicine 09/19/20 Jackie Viveros, KassidyD [address] [place] [address] Pharmacist Pharmacy 06/05/25 documented as of this encounter
--- OUTSIDE RECORDS SUMMARY | 2025-07-05 13:18 | XMS_ITS | Encounter Summary ---
Author Organization [employer] Address [address] [facility] 7t [place] [address] Care Team Providers Care Mime Artist Name Role Phone Emma Nuno MD Primary Care Provider [phone] Jackie Viveros PharmD Unavailable [phone] Reason for Visit * Reason Onset Date Comments returning call 07/01/2025 Encounter Details Date Type Department Care Team ([facility] Contact Info) Description 07/01/2025 Telephone [facility] ADULT DENTAL [address] [place], [place] [phone] Eleuterio Briggs, DMD [address] [place] [address] returning call Social History Tobacco Use Types Packs/Day Years [...] the past 12 months, has t he [employer], gas, oil or water company threatened to [...] * Telephone Encounter - Monica Diggs - 07/01/2025 12:09 PM EDT Patient believes he may have missed a call from [facility] to schedule an appointment for partials. Pleasereturn call to patient documented in this encounter Plan of Treatment Upcoming Encounters Date Type Department Care Team (Late st Contact Info) Description 07/08/2025 11:30 AM EST Office Visit [facility] OPTOMETRY [address] [place], [place] [phone] Nicki Terrell, OD [address] [place] [address] 07/29/2025 9:30 AM EST Medication Management [facility] MEDICINE [address] [place] [address] Jackie Viveros PharmD [address] [place] [address] documented as of this encounter Visit Diagnoses Not on filedocumented in this encounter Additional Health Concerns Assessment Noted Time PHQ-9 Depression Total Score: 1 01/31/20 25 4:35 PM EDT documented as of this encounter Care Teams Mime Artist Relationship Specialty Start Date End Date Emma Nuno MD [address] [place] [address] PCP - General Family Medicine 09/19/20 Jackei Viveros, Lioc [address] [place] [phone] Pharmacist Pharmacy 06/05/25 documented as of this encounter
--- OUTSIDE RECORDS SUMMARY | 2025-07-05 13:18 | XMS_ITS | Encounter Summary ---
Author Organization [facility] Address [address] [place] [address] 7t [place] [address] Care Team Providers Care Web Design Intern Name Role Phone Emma Nuno MD Primary Care Provider Jackie Viveros PharmD Unavailable [phone] Encounter Details Date Type Department Care Team (Latest Contact Info) Description 05/18/2021 Abstract [facility] CONVERSIONS Dental, Provider, DDS Social History [...] Description 07/08/2025 11:30 AM EST Office Visit [facility] OPTOMETRY [address] [place] [address] Nicki Terrell, OD [address] [place] [address] 07/29/2025 9:30 AM EST Medication Management [facility] MEDICINE [address] [place] [address] Jackie Viveros, PharmD [address] [place] [address] documented as of this encounter Visit Diagnoses Not on filedocumented in this encounter Care Teams Web Design Intern Relationship Specialty Start Date End Date Emma Nuno MD [address] [place] [address] PCP - General Family Medicine 09/19/20 Jackie Viveros, KassidyD [address] [place] [phone] Pharmacist Pharmacy 06/05/25 documented as of this encounter
--- OUTSIDE RECORDS SUMMARY | 2025-07-05 13:18 | XMS_ITS | Encounter Summary ---
Author Organization [employer] Address [address] [facility] 7t [place] [address] Care Team Providers Care Taper/Finisher Name Role Phone Emma Nuno MD Primary Care Provider [phone] Jackie Viveros PharmD Unavailable [phone] Reason for Visit * Reason Onset Date Comments chart prep 07/04/2025 Encounter Details Date Type Department Care Team ([facility] Contact Info) Description 07/04/2025 Telephone [facility] MEDICINE [address] [place], [place] [phone] Emma Nuno MD [address] [place], [place] [phone] chart prep Social History Tobacco Use Types Packs/Day Years [...] the past 12 months, has t he [employer], gas, oil or water company threatened to [...] encounter Miscellaneous Notes * Telephone Encounter - Tessa Bose [place] - 07/04/2025 10:18 AM EDT Chart Prep Labs: not applicable Images: done Referrals: complete Vaccines due: not applicable Screenings: not applicable Overdue care gaps: Glucose documented in this encounter Plan of Treatment Upcoming Encounters Date Type Department Care Team (Late st Contact Info) Description 07/08/2025 11:30 AM EST Office Visit [facility] OPTOMETRY [address] [place], [place] [phone] Nicki Terrell, OD [address] [place] [address] 07/29/2025 9:30 AM EST Medication Management [facility] MED[facility] [address] [place] [address] Jackie Viveros PharmD [address] [place] [address] documented as of this encounter Visit Diagnoses Not on filedocumented in this encounter Additional Health Concerns Assessment Noted Time PHQ-9 Depression Total Score: 1 01/31/20 25 4:35 PM EDT documented as of this encounter Care Teams Taper/Finisher Relationship Specialty Start Date End Date Emma Nuno MD [address] [place] [address] [phone] PCP - General Family Medicine 09/19/20 Jackie Viveros, Lico [address] [place] [address] [phone] Pharmacist Pharmacy 06/05/25 documented as of this encounter
--- OUTSIDE RECORDS SUMMARY | 2025-07-05 13:18 | XMS_ITS | Encounter Summary ---
Author Organization [employer] Address [address] [place] [address] 7t [place] [address] Care Team Providers Care Transcriber Name Role Phone Emma Nuno MD Primary Care Provider Jackie Viveros PharmD Unavailable [phone] Encounter Details Date Type Department Care Team (Late st Contact Info) Description 11/04/2022 Orders Only [facility] [address] [place] [address] Georgia Lanier LPN Social History Tobacco Use [...] Description 07/08/2025 11:30 AM EST Office Visit [facility] OPTOMETRY [address] [place] [address] Nicki Terrell, OD [address] [place] [address] 07/29/2025 9:30 AM EST Medication Management [facility] MED[facility] [address] [place] [address] Jackie Viveros, PharmD [address] [place] [address] documented as of this encounter Visit Diagnoses Not on filedocumented in this encounter Care Teams Transcriber Relationship Specialty Start Date End Date Emma Nuno MD [address] [place] [address] PCP - General Family Medicine 09/19/20 Jackie Viveros, Lico [address] [place] [address] Pharmacist Pharmacy 06/05/25 documented as of this encounter
--- OUTSIDE RECORDS SUMMARY | 2025-07-05 13:18 | XMS_ITS | Encounter Summary ---
Author Organization [employer] Address [address] [facility] 7t [place] [address] Care Team Providers Care Street Vendor Name Role Phone Emma Nuno MD Primary Care Provider [phone] Jackie Viveros PharmD Unavailable [phone] Reason for Visit * Reason Comments Med Refill Encounter Details Date Type Department Care Team ([facility] st Contact Info) Description 03/31/2024 Refill [facility] MED[facility]INE [address] [place], [place] [phone] Georgia Corral DO 230 [place], [place] [phone] Social History Tobacco Use Types Packs/Day Years [...] Description 07/08/2025 11:30 AM EST Office Visit [facility] OPTOMETRY [address] [place] [address] Xander, Nicki, OD 230 [place] [address] 07/29/2025 9:30 AM EST Medication Management [facility] 230 [place] [address] Jackie Viveros PharmD 230 [place] [address] documented as of this encounter Visit Diagnoses Not on filedocumented in this encounter Additional Health Concerns Assessment Noted Time PHQ-9 Depression Total Score: 0 01/03/20 24 10:42 AM EDT documented as of this encounter Care Teams Street Vendor Relationship Specialty Start Date End Date Emma Nuno MD [address] [place] [address] PCP - General Family Medicine 09/19/20 Jackie Viveros, PharmD [address] [place] [address], [place] [address] Pharmacist Pharmacy 06/05/25 documented as of this encounter
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
--- OUTSIDE RECORDS SUMMARY | 2025-07-05 13:18 | XMS_ITS | Encounter Summary ---
Author Organization [employer] Address [address] [facility] 7t [place] [address] Care Team Providers Care Mining Consultant Name Role Phone Emma Nuno MD Primary Care Provider [phone] Jackie Viveros PharmD Unavailable [phone] Reason for Visit * Reason Onset Date Comments Med Refill 06/24/2025 Encounter Details Date Type Department Care Team ([facility] st Contact Info) Description 06/24/2025 Telephone [facility] MEDICINE 230 [place], [place] [phone] Emma Nuno MD 230 [place], [place] [phone] Med Refill Social History Tobacco Use Types Packs/Day Years [...] the past 12 months, has t he [employer], gas, oil or water company threatened to [...] encounter Miscellaneous Notes * Telephone Encounter - Georgia Lanier LPN - 06/24/2025 1:55 PM EDT Medication pended to PCP. * Telephone Encounter - Barrett Rai - 06/24/2025 1:47 PM EDT TC from pt requesting medication refill. Medications needing refill : [facility] [[id number]] To be sent to: [facility] - [place], [place] - [address] [facility] documented in this encounter Plan of Treatment Upcoming Encounters Date Type Department Care Team (Late st Contact Info) Description 07/08/2025 11:30 AM EST Office Visit [facility] OPTOMETRY [address] [place] [address] Xander, Nicki, OD 230 [place] [address] 07/29/2025 9:30 AM EST Medication Management [facility] MEDICINE 230 [place] [address] Jackie Viveros PharmD 230 [place] [address] documented as of this encounter Visit Diagnoses Not on filedocumented in this encounter Additional Health Concerns Assessment Noted Time PHQ-9 Depression Total Score: 1 01/31/20 25 4:35 PM EDT documented as of this encounter Care Teams Mining Consultant Relationship Specialty Start Date End Date Emma Nuno MD [address] [place] [address] PCP - General Family Medicine 09/19/20 Jackie Viveros PharmD [address] [place] [address] Pharmacist Pharmacy 06/05/25 documented as of this encounter
--- OUTSIDE RECORDS SUMMARY | 2025-07-05 13:18 | XMS_ITS | Encounter Summary ---
Author Organization [employer] Address [address] [place] [address] 7t [place] [address] Care Team Providers Care General Internist And Physician Leader Name Role Phone Emma Nuno MD Primary Care Provider Jackie Viveros PharmD Unavailable Encounter Details Date Type Department Care Team (Late Contact Info) Description 09/01/[address] [facility] MEDICINE 230 [place] [address] Emma Nuno MD 230 [place] [address] Screening for malignant neoplasm of colon (Primary [...] Encounters Date Type Department Care Team (Late Contact Info) Description 07/08/2025 11:30 AM EST Office Visit [facility] OPTOMETRY 267 [place] [address] Xander, Nicki, OD 230 [place] [address] 07/29/2025 9:30 AM EST Medication Management [facility] MED[facility]INE 230 [place] [address] Jackie Viveros, PharmD 230 [place] [address] documented as of this encounter Visit Diagnoses Diagnosis Screening for malignant neoplasm of colon- Primary documented in this encounter Care Teams General Internist And Physician Leader Relationship Specialty Start Date End Date Emma Nuno MD 230 [place] [address] PCP - General Family Medicine 09/19/20 Jackie Viveros PharmD 230 [place] [address] Pharmacist Pharmacy 06/05/25 documented as of this encounter
--- OUTSIDE RECORDS SUMMARY | 2025-07-05 13:18 | XMS_ITS | Encounter Summary ---
Author Organization [employer] Address [address] [facility] [address] 7t [place] [address] Care Team Providers Care Materials Engineering Technician Name Role Phone Emma Nuno MD Primary Care Provider [phone] Jackie Viveros PharmD Unavailable [phone] Encounter Details Date Type Department Care Team (Latest Contact Info) Description 07/05/2025 Travel Social History Tobacco Use Types Packs/Day [...] Description 07/08/2025 11:30 AM EST Office Visit [facility] OPTOMETRY 267 [place] [address] Nicki Terrell, OD 230 [place] [address] 07/29/2025 9:30 AM EST Medication Management [facility] 230 [place] [address] Jackie Viveros, PharmD 230 [place] [address] documented as of this encounter Visit Diagnoses Not on filedocumented in this encounter Additional Health Concerns Assessment Noted Time PHQ-9 Depression Total Score: 1 01/31/20 25 4:35 PM EDT documented as of this encounter Care Teams Materials Engineering Technician Relationship Specialty Start Date End Date Emma Nuno MD 230 [place] [address] PCP - General Family Medicine 09/19/20 Jackie Viveros PharmD 230 [place] [address] Pharmacist Pharmacy 06/05/25 documented as of this encounter
--- OUTSIDE RECORDS SUMMARY | 2025-07-05 13:18 | XMS_ITS | Encounter Summary ---
Author Organization [employer] Address [address] [facility] [address] 7t [place] [address] Care Team Providers Care Machine Baster Name Role Phone Emma Nuno MD Primary Care Provider [phone] Jackie Viveros PharmD Unavailable [phone] Encounter Details Date Type Department Care Team (Late st Contact Info) Description 01/11/2024 Orders Only [facility] MEDICINE 230 [place] [address] Provider, MD Rubi Social History Tobacco Use [...] Description 07/08/2025 11:30 AM EST Office Visit [facility] OPTOMETRY 267 [place] [address] Xander, Nicki, OD 230 [place] [address] 07/29/2025 9:30 AM EST Medication Management [facility] MEDICINE 230 [place] [address] Jackie Viveros, PharmD 230 [place] [address] documented as of this encounter Procedures Procedure Name Priority Date/Time Associated Diagnosis Comments COLONOSCOPY Routine 04/29/2017 7:45 AM EDT documented in this encounter Results * Hm Colonoscopy (04/29/2017 7:45 AM EDT) us Historical Provider HEALTH MAINTENANCE Final Result documented in this encounter Visit Diagnoses Not on filedocumented in this encounter Additional Health Concerns Assessment Noted Time PHQ-9 Depression Total Score: 0 01/03/20 24 10:42 AM EDT documented as of this encounter Care Teams Machine Baster Relationship Specialty Start Date End Date Emma Nuno MD 230 [place] [address] PCP - General Family Medicine 09/19/20 Jackie Viveros, KassidyD 230 [place] [address] Pharmacist Pharmacy 06/05/25 documented as of this encounter
--- OUTSIDE RECORDS SUMMARY | 2025-07-05 13:19 | XMS_ITS | Encounter Summary ---
Author Organization [facility] Address [address] [place] [address] Care Team Providers Care Gravure Press Operator Name Role Phone Emma Nuno MD Primary Care Provider [phone] Encounter Details Date Type Department Care Team (Late st Contact Info) Description 02/12/2025 Lab Requisition [facility] - Main Lab [address] [place] [id number] Markos Negron MD [address] [facility] [address] [place] [address] Gross hematuria Social History Tobacco Use Types Packs/Day Years Used Date Smoking Tobacco: Never Assessed Sex and Gender Information Value Date Recorded Sex Assigned at Not on file Legal Sex Male 10:12 AM EST Gender Identity Not on file Sexual Orientation Not on file documented as of this encounter Plan of Treatment Not on file documented as of this encounter Procedures Procedure Name Priority Date/Time Associated Diagnosis Comments CULTURE URINE Routine 02/12/2025 1:00 PM EDT Gross hematuria documented in this encounter Results * Culture urine (02/12/2025 1:00 PM EDT) Culture, Urine No growth 02/13/2025 1:35 PM EDT [facility] Urine Urine specimen obtained by clean catch procedure / Unknown 02/12/2025 1:00 PM EDT 02/12/2025 5:56 PM EDT Markos Negron MD LAB MICROBIOLOGY - GENERAL ORDERABLES Final Result [facility] [address] [place] [address], documented in this encounter Visit Diagnoses Diagnosis Gross hematuria documented in this encounter Additional Health Concerns Infection Onset Date Last Indicated Resolved Time MRSA 02/20/2025 02/20/2025 documented as of this encounter Care Teams Gravure Press Operator Relationship Specialty Start Date End Date Emma Nuno MD 230 [place] [address] PCP - General Chemical Analytical Sampler 02/20/25 documented as of this encounter
--- OUTSIDE RECORDS SUMMARY | 2025-07-05 13:19 | XMS_ITS | Clinical Summary ---
Author Organization [address] [place] [address] Address [address] [place] [address] Phone Care Team Providers Care Sales Record Clerk Name Role Phone Emma Nuno MD Primary Care Provider [phone] Allergies No known active allergies Medications No known medications Social History Tobacco Use Types Packs/Day Years [...] 04/01/2025 10:20 AM EDT Plan of Treatment Health Maintenance Due Date Last Done Comments Colorectal Cancer Screening: Colonoscopy 1962 Diabetes: Annual GFR (Glomerular Filtration Rate) 1962 Diabetes: Annual Foot Exam 01/11/1972 Diabetes: Annual Retina Eye Exam 01/11/1972 Hepatitis A Vaccines (1 of 2 - Risk 2-dose series) 1981 Medicare Annual Wellness Visit 08/03/2022 Social Influencers [...] on patient's age to complete this topic Additional Health Concerns Infection Onset Date Last Indicated MRSA 02/20/2025 02/20/2025 Insurance , [address] [employer] MEDICARE Member Subscriber Plan / Payer (Ef fective 2017-Present) Name:DAVE JOHNSON Relation to Subscriber:Self Name:Dave Johnson Payer ID:[id number] Group ID:[id number] Type:Not on file Address: [place] [address] [place] [address] Care Teams Sales Record Clerk Relationship Specialty Start Date End Date Emma Nuno MD 230 [place] [address] PCP - General Components Engineer 02/20/25
--- OUTSIDE RECORDS SUMMARY | 2025-07-05 13:19 | XMS_ITS | Encounter Summary ---
Author Organization [employer] [facility] Address [address] [place] [address] 7t [place] [address] Care Team Providers Care System Analyst Name Role Phone Emma Nuno MD Primary Care Provider [phone] Jackie Viveros PharmD Unavailable [phone] Reason for Visit * Reason Onset Date Comments Appointment Request 11/25/2022 Encounter Details Date Type Department Care Team ([facility] Contact Info) Description 11/25/2022 Telephone [facility] MEDICINE 230 [place] [address] Emma Nuno MD 230 [place] [address] Appointment Request Social History Tobacco Use Types [...] - 11/25/2022 9:35 AM EDT Tc from [facility] requesting an appt with provider regarding pt physical/f/u appt. Please contact [facility] at [phone] documented in this encounter Plan of Treatment Upcoming Encounters Date Type Department Care Team ([facility] Contact Info) Description 07/08/2025 11:30 AM EST Office Visit [facility] OPTOMETRY [address] [place], [place] [phone] Nicki Terrell, OD 230 [place] [address] 07/29/2025 9:30 AM EST Medication Management [facility] MEDICINE 230 [place] [address] Jackie Viveros PharmD 230 [place] [address] documented as of this encounter Visit Diagnoses Not on filedocumented in this encounter Care Teams System Analyst Relationship Specialty Start Date End Date Emma Nuno MD [address] [place] [address] [id number] PCP - General Family Medicine 09/19/20 Jackie Viveros PharmD [address] [place] [phone] Pharmacist Pharmacy 06/05/25 documented as of this encounter
--- OUTSIDE RECORDS SUMMARY | 2025-07-05 13:19 | XMS_ITS | Encounter Summary ---
Author Organization [employer] Address [address] [place] [address] Care Team Providers Care Wreath Maker Name Role Phone Emma Nuno MD Primary Care Provider [phone] Encounter Details Date Type Department Care Team (Late st Contact Info) Description 02/20/2025 Lab Requisition [facility] - Main Lab 299 [facility] [place] [address] Gillian Snyder PA [address] [place] [address] Urinary tract infection, site not specified Social History Tobacco Use Types Packs/Day Years [...] Date/Time Associated Diagnosis Comments CULTURE URINE Routine 02/20/2025 12:00 AM EDT Urinary tract infection, site not specified documented in this encounter Results * (ABNORMAL) Culture urine (02/20/2025 12:00 AM EDT) Culture, Urine >100,000 CFU/mL Methicillin-Resis tant Staphylococcus aureus(A) PITO 02/22/2025 10:04 AM EDT [facility] Comment: Edited result: Previously reported as Staphylococcus aureus on 02/21/2025 at 0949 EDT. Urine Urine specimen obtained by clean catch procedure / Unknown 02/20/2025 02/20/2025 12:30 PM EDT Narrative Organism Antibiotic Method Susceptibility Methicillin-Resistant Staphylococcus aureus Benzylpenicillin PITO >=0.5 ug/ml: Resistant Methicillin-Resistant Staphylococcus aureus Oxacillin PITO >=4 ug/ml: Resistant Methicillin-Resistant Staphylococcus aureus Gentamicin PITO <=0.5 ug/ml: Susceptible Methicillin-Resistant Staphylococcus aureus Ciprofloxacin PITO <=0.5 ug/ml: Susceptible Methicillin-Resistant Staphylococcus aureus Levofloxacin PITO 0.25 ug/ml: Susceptible Methicillin-Resistant Staphylococcus aureus Linezolid PITO 2 ug/ml: Susceptible Methicillin-Resistant Staphylococcus aureus Vancomycin PITO 1 ug/ml: Susceptible Methicillin-Resistant Staphylococcus aureus Tetracycline PITO <=1 ug/ml: Susceptible Methicillin-Resistant Staphylococcus aureus Nitrofurantoin PITO <=16 ug/ml: Susceptible Methicillin-Resistant Staphylococcus aureus Rifampin PITO <=0.5 ug/ml: Susceptible Methicillin-Resistant Staphylococcus aureus Trimethoprim/Sulfamethoxazo le PITO <=10 ug/ml: Susceptible Gillian LUI LAB MICROBIOLOGY - GENERAL ORD ERABLES Final Result [facility] [address] [place] [address], documented in this encounter Visit Diagnoses Diagnosis Urinary tract infection, site not specified documented in this encounter Additional Health Concerns Infection Onset Date Last Indicated Resolved Time MRSA 02/20/2025 02/20/2025 documented as of this encounter Care Teams Wreath Maker Relationship Specialty Start Date End Date Emma Nuno MD [address] [place] [address] PCP - General Deputy Clerk Of Superior Court 02/20/25 documented as of this encounter
--- OUTSIDE RECORDS SUMMARY | 2025-07-05 13:19 | XMS_ITS | Encounter Summary ---
Author Organization [employer] Address [address] [facility] [address] 7t [place] [address] Care Team Providers Care Returns Processor Name Role Phone Emma Nuno MD Primary Care Provider [phone] Jackie Viveros PharmD Unavailable [phone] Reason for Visit * Reason Onset Date Comments returned call to reschedule Sudol appt Encounter Details Date Type Department Care Team ([facility] st Contact Info) Description 09/25/2024 Telephone [facility] [address] [place] [address] Waylon Virgen DMD [address] [place] [address] returned call to reschedule Sudol appt Social History Tobacco Use Types Packs/Day [...] the past 12 months, has t he [employer], gas, oil or water [employer] threatened to shut off services in your [...] Description 07/08/2025 11:30 AM EST Office Visit [facility] OPTOMETRY [address] [place] [address] Xander, Nicki, OD 230 [place] [address] 07/29/2025 9:30 AM EST Medication Management [facility] [address] [place] [address] Jackie Viveros, PharmD 230 [place] [address] documented as of this encounter Visit Diagnoses Not on filedocumented in this encounter Additional Health Concerns Assessment Noted Time PHQ-9 Depression Total Score: 0 01/03/20 24 10:42 AM EDT documented as of this encounter Care Teams Returns Processor Relationship Specialty Start Date End Date Emma Nuno MD 230 [place] [address] PCP - General Family Medicine 09/19/20 Jackie Viveros PharmD [address] [place] [address] Pharmacist Pharmacy 06/05/25 documented as of this encounter
--- OUTSIDE RECORDS SUMMARY | 2025-07-05 13:19 | XMS_ITS | Encounter Summary ---
Author Organization [employer] Address [address] [facility] 7t [place] [address] Care Team Providers Care Credit Operations Processor Name Role Phone Emma Nuno MD Primary Care Provider [phone] Jackie Viveros PharmD Unavailable Reason for Visit * Reason Onset Date Comments Durable Medical Equipment 11/25/2022 Encounter Details Date Type Department Care Team ([facility] st Contact Info) Description 11/25/[address] [facility] MEDICINE [address] [place], [place] [phone] Emma Nuno MD 230 [place] [address] Durable Medical Equipment Social History Tobacco Use [...] - 11/25/2022 9:39 AM EDT Tc from [facility] requesting a Heating pad and the Depend adult Size ( M ). Please contact [facility] if any questions at [phone] documented in this encounter Plan of Treatment Upcoming Encounters Date Type Department Care Team (Late st Contact Info) Description 07/08/2025 11:30 AM EST Office Visit [facility] OPTOMETRY [address] [place] [address] Xander, Nicki, OD 230 [place] [address] 07/29/2025 9:30 AM EST Medication Management [facility] MEDICINE [address] [place] [address] Jackie Viveros PharmD 230 [place] [address] documented as of this encounter Visit Diagnoses Not on filedocumented in this encounter Care Teams Credit Operations Processor Relationship Specialty Start Date End Date Emma Nuno MD [address] [place] [address] PCP - General Family Medicine 09/19/20 Jackie Viveros PharmD [address] [place] [address] Pharmacist Pharmacy 06/05/25 documented as of this encounter
--- OUTSIDE RECORDS SUMMARY | 2025-07-05 13:19 | XMS_ITS | Encounter Summary ---
Author Organization [employer] Address [address] [place] [address] Care Team Providers Care Inspector Brake Lining Name Role Phone Emma Nuno MD Primary Care Provider [phone] Encounter Details Date Type Department Care Team (Late st Contact Info) Description 02/19/2025 Lab Requisition [facility] - Main Lab [address] [facility] [place] [address] Markos Negron MD [address] [place] [address] Gross hematuria Social History Tobacco Use Types [...] Procedure Name Priority Date/Time Associated Diagnosis Comments AP OUTSIDE CONSULT Routine 02/12/2025 12 :00 AM EDT Gross hematuria documented in this encounter Results * Anatomic pathology outside consult (02/12/2025 12:00 AM EDT) Final Diagnosis A. Urine, Voided, ([id number]): Negative for high grade urothelial carcinoma. Acute inflammatory cells are present. Results of [employer]ro[employer]ion fluorescence in situ hybridization (FISH) testing: CEP3: Normal CEP7: Normal CEP17: Normal LSI 9p21: Normal Interpretation: Normal profile Controls stained appropriately. Note: The results are intended as a screening device and should be interpreted in association with other clinical and pathological findings. 03/01/2025 9:55 AM EDT [facility] Clinical Information Gross hematuria R31.0 Urine Cytology/FISH (now) 03/01/2025 9:55 AM EDT [facility] Gross Description A. Urine, Voided, ([id number]): Received one ThinPrep slide for cytology and one ThinPrep slide for UroVysion FISH 03/01/2025 9:55 AM EDT [facility] Disclaimer Unless otherwise specified, all tissue is 10% NB formalin fixed and paraffin embedded. Technical pathology services provided by [facility] at [address], [place] [address] (CLIA #[id number]/Annalise Tavares MD, Tanning Wheel Filler) 03/01/2025 9:55 AM EDT [facility] Tissue Urine specimen from urethra / Unknown 02/12/2025 02/19/2025 4:17 PM EDT us Markos Negron MD LAB PATHOLOGY ORDERABLES Fi nal Result [facility] [address] [place] [address], documented in this encounter Visit Diagnoses Diagnosis Gross hematuria documented in this encounter Additional Health Concerns Infection Onset Date Last Indicated Resolved Time MRSA 02/20/2025 02/20/2025 documented as of this encounter Care Teams Inspector Brake Lining Relationship Specialty Start Date End Date Emma Nuno MD [address] [place] [address] PCP - General Scrape Gatherer 02/20/25 documented as of this encounter
--- OUTSIDE RECORDS SUMMARY | 2025-07-05 13:19 | XMS_ITS | Encounter Summary ---
Author Organization [employer] Address [address] [place] [address] Care Team Providers Care Side Piece Coverer Name Role Phone Emma Nuno MD Primary Care Provider [phone] Jackie Viveros PharmD Unavailable [phone] Encounter Details Date Type Department Care Team ([facility] st Contact Info) Description 10/17/2023 Orders Only [facility] [address] [place], [place] [phone] Emma Nuno MD [address] [place], [place] [phone] Social History Tobacco Use Types Packs/Day Years [...] Description 07/08/2025 11:30 AM EST Office Visit [facility] [address] [place] [address] Xander, Nicki, OD [address] [place] [address] 07/29/2025 9:30 AM EST Medication Management [facility] [address] [place] [address] Jackie Viveros PharmD [address] [place] [address] documented as of this encounter Visit Diagnoses Not on filedocumented in this encounter Additional Health Concerns Assessment Noted Time PHQ-9 Depression Total Score: 9 12/31/19 23 9:13 AM EDT documented as of this encounter Care Teams Side Piece Coverer Relationship Specialty Start Date End Date Emma Nuno MD [address] [place] [address] PCP - General Family Medicine 09/19/20 Jackie Viveros, PharmD [address] [place] [address] Pharmacist Pharmacy 06/05/25 documented as of this encounter
--- OUTSIDE RECORDS SUMMARY | 2025-07-05 13:19 | XMS_ITS | Clinical Summary ---
Author Organization [employer] Address [address] [place] [address] Care Team Providers Care Rubber Turner Name Role Phone Emma Nuno MD Primary Care Provider [phone] Jackie Viveros PharmD Unavailable [phone] Allergies No known active allergies Medications * This document contains information received from the source organization and may not represent a complete record from that organization. sildenafil (Viagra) 50 MG tablet TAKE 1 TABLET 1 HOUR BEFORE SEXUAL RELATIONS ONCE DAILY NEEDED. 20 tablet 3 023 Active nicotine polacrilex (Nicorette) 2 MG gum CHEW 1 PIECE OF GUM EVERY 2 HOURS NEEDED 024 Active amitriptyline (Elavil) 25 MG tablet TAKE 1 TABLET BY MOUTH AT BEDTIME 90 tablet 3 025 Active D3 Super Strength 50 MCG (2000 UT) capsule TAKE 1 CAPSULE BY MOUTH ONCE DAILY IN THE MORNING 90 capsule 3 025 Active tamsulosin (Flomax) 0.4 MG 24 hr capsule TAKE 1 CAPSULE BY MOUTH ONCE DAILY IN THE MORNING 90 capsule 3 025 Active atorvastatin (Lipitor) 20 MG tablet TAKE 1 TABLET BY MOUTH ONCE DAILY IN THE MORNING 90 tablet 3 025 Active Diclofenac Sodium 1 % gelIndications: Other chronic pain APPLY 2 GRAMS TO AFFECTED AREA(S) TWICE DAILY 100 g 6 025 Active Additional Information Patient not taking.Reported on 06/05/2025 Ventolin HFA 108 (90 Base) MCG/ACT inhaler INHALE 2 PUFFS BY MOUTH EVERY 4 HOURS NEEDED FOR WHEEZING OR SHORTNESS OF BREATH 18 g 3 025 Active polyethylene glycol, PEG, 3350 (Glycolax) 17 GM/SCOOP powderIndicatio ns:Constipation , unspecified constipation type TAKE 17 GM MIXED IN 8 OUNCES OF WATER ONCE DAILY 510 g 2 Active Additional Information Patient taking differently: Daily PRN, Reported on 06/05/2025 Sodium Fluoride 1.1 % creamIndication s:Dental caries [place] teeth for 2 minutes, morning and night. Spit, do not rinse. Do not eat or drink anything for 30 minutes following use. 112 g 3 Active Dulaglutide (Trulicity) 0.75 MG/0.5ML solution auto-injectorIn dications:Type 2 diabetes mellitus without complication, without long-term current use of insulin (HCC) Inject 0.75 mg under the skin 1 (one) time per week. 2 mL 3 Active FREESTYLE LITE test stripIndication s:Type 2 diabetes mellitus without complication, without long-term current use of insulin ([facility]) Use to test blood sugar 3 times daily 100 each 12 025 2025 Active Alcohol Swabs 70 % padsIndications :Type 2 diabetes mellitus without complication, without long-term current use of insulin ([facility]) Use to test blood sugar 3 times daily 100 each 025 Active Blood Glucose Monitoring Suppl (FreeStyle [place] Lite) w/Device kitIndications: Type 2 diabetes mellitus without complication, without long-term current use of insulin ([facility]) Use to test blood sugar 3 times daily 1 kit 1 Active olmesartan (Benicar) 5 MG tablet Take 1 tablet (5 mg) by mouth Once per day. 90 tablet 3 025 2025 Active metFORMIN (Glucophage) 500 MG tablet Take 1 tablet (500 mg) by mouth with breakfast and with evening meal. 180 tablet 3 025 2025 Active albuterol (2.5 MG/3ML) 0.083% nebulizer solutionIndicat ions:Acute bronchitis, unspecified organism Take 3 mL (2.5 mg) by nebulization every 4 (four) hours if needed for wheezing. 75 mL 3 025 2025 Active nicotine (Nicoderm, Step 1) 21 MG/24HR patchIndication s:Tobacco use disorder Apply 1 patch, as directed, every 24 hours. May remove at bedtime if needed & replace the next morning. Rotate application site. 42 patch Active nicotine (Nicoderm, Step 2) 14 MG/24HR patchIndication s:Tobacco use disorder Apply 1 patch, as directed, every 24 hours. May remove at bedtime if needed & replace the next morning. Rotate application site. 14 patch 025 Active nicotine (Nicoderm, Step 3) 7 MG/24HR patchIndication s:Tobacco use disorder Apply 1 patch, as directed, every 24 hours. May remove at bedtime if needed & replace the next morning. Rotate application site. 14 patch 2 Active traZODone (Desyrel) 100 MG tabletIndicatio ns:Primary insomnia TAKE 1 TO 2 TABLETS BY MOUTH AT BEDTIME NEEDED FOR SLEEP 60 tablet 3 Active divalproex (Depakote ER) 500 MG 24 hr tablet TAKE 1 TABLET BY MOUTH EVERY DAY AT BEDTIME 30 tablet 3 Active Lancets miscIndications :Type 2 diabetes mellitus without complication, without long-term current use of insulin ([facility]) USE TO TEST BLOOD SUGAR THREE TIMES A DAY 100 each 3 Active ibuprofen 600 MG tablet Take 1 tablet (600 mg) by mouth 3 times daily. 90 tablet 025 2024 Active sulfamethoxazol e-trimethoprim (Bactrim DS) 800-160 MG tablet Take 1 tablet by mouth 2 times daily for 7 days. 14 tablet 025 2024 Active divalproex (Depakote ER) 500 MG 24 hr tablet Take 1 tablet (500 mg) by mouth in the morning. 90 tablet 3 024 2024 Discontinued traZODone (Desyrel) 100 MG tabletIndicatio ns:Primary insomnia Take 1 tablet (100 mg) by mouth at bedtime. 90 tablet 3 024 2024 Discontinued ibuprofen 600 MG tabletIndicatio ns:Other chronic pain TAKE 1 TABLET BY MOUTH THREE TIMES DAILY 90 tablet 3 024 2024 Discontinued Lancets miscIndications :Type 2 diabetes mellitus without complication, without long-term current use of insulin ([facility]) Use to test blood sugar 3 times daily 100 each 025 2024 Discontinued(R eorder (will not trigger notification to Pharmacy)) Active Problems Problem Noted Date Diagnosed Date Annual wellness visit 04/12/2025 Assessment & Plan (04/12/2025 11:43 AM EDT): Functional status/mobility: Pt ambulates with Rollator walker. ADLs/IADLs- fully independent, does have a COUNTY MANAGER as needed for assistance. No falls in the past year. Balance is relatively stable, pt does suffer from chronic right hip pain and LBP which makes it harder to bear weight on R side. Pt would benefit from PT, he has completed PT in the past but due to his ongoing medical care for his BPH he was unable to complete PT, and he is not interested at this time. Cognition: pt is alert and oriented x 3, due to time constraints no brief cognitive questionnaires were administered today. I advise pt has this completed at next f/u. Mood: PHQ9 screenings were negative today. Medication safety: Performed full medication reconciliation today and identified medications important for chronic disease management. Also identified medications with possible sedation risk to identify risk for falls. Health maintenance: Pt due for eye exam, advised pt to call his eye doctor to schedule. Pt is in care with [facility] dental. Cancer screenings UTD, IMMs UTD. 6. ASCVD risk: unable to calculate- pending lipids. However due to pt medical conditions including HTN, T2DM, Obesity and HLD pt at high CVD risk. 7. Provided anticipatory guidance Class 2 severe obesity with serious comorbidity and body mass index (BMI) of 37.0 to 37.9 in adult 04/12/2025 Assessment & Plan (04/12/2025 11:47 AM EDT): Dietary and exercise counseling Dietary counseling 04/12/2025 Assessment & Plan (04/12/2025 11:48 AM EDT): Dietary Recommendations: Fruits, vegetables, whole grains, protein foods, and fat-free or low-fat dairy products are healthy choices. Eat different types of protein foods in your diet. This can include seafood, lean meats, poultry, beans, peas, lentils, nuts, seeds, soy products, and eggs. Limit foods and beverages higher in added sugars, saturated fat, and sodium. Reduce sugar intake with coffee. Reduce late night snacking and sweets. Exercise Recommendations: At least 150 minutes of moderate-intensity physical activity per week, or an equivalent combination of moderate- and vigorous-intensity activity Tobacco use disorder 02/18/2025 Assessment & Plan (02/18/2025 6:52 PM EDT): Pt has plans to resume NRT from today forward Gross hematuria 02/18/2025 Assessment & Plan (02/18/2025 6:55 PM EDT): In setting of tobacco use, Cystoscopy warranted. Pt plans to reduce tobacco use, Type 2 diabetes mellitus wit hout complication, without long-term current use of insulin 11/05/2024 Assessment & Plan (04/12/2025 11:56 AM EDT): A1c above goal of 7 Lab Results Component Value Date HGBA1C 7.2 (A) 04/12/2025 Education provided today on importance of medication adherence. I took the time to reconcile meds with patient today and discussed MOA and purpose and anticipated SE for each med. Today we decided to reinitiate his metformin and olmesartan. We decided to start with those medications and then reinitiate Trulicty in exactly 1 week to minimize SE. I am aware that GLP 1 medications would greatly benefit this pt however due to recent hesitancy with this medication we will stagger pharmacologic tx. Initiated diabetes self-management education and support (DSMES) and medical nutrition therapy (MNT) emphasized sustainable dietary patterns over any single b est diet. Discussed importance of controlled blood pressure, adherence to statin therapy Recommended f/u with his eye doctor for routine eye exams Pt had foot exam at [facility] with Dr. Medina I also emphasized importance of monitoring blood glucose although pt would benefit from teaching on how to perform blood glucose monitoring CDTM referral in place Labs ordered today Pt appears motivated today to start implementing lifestyle modification and adherence to anti diabetic meds. F/u with PCP 05/03/25. Assessment & Plan (04/08/2025 10:39 AM EDT): Current A1c: 8.3, continue Metformin 500mg BID and Olmesartan 5mg daily; Trulicity 0.75mg weekly BMP: Lab Results Component Value Date CREATININE 0.76 11/02/2024 CREATININE 1.08 03/12/2022 Microalbumin: Foot Exam: Complete at follow up Eye Exam: Discuss at follow up Lipid panel: ASCVD: Calculate pending updated labs Statin: Yes ASA: No THONG/ARB: No Encouraged regular aerobic exercise for improved glycemic control Encouraged daily foot checks Encouraged lean protein snacks and to avoid foods high in sugar and simple carbohydrates Treatment Goals: A1c goal: <7% FBG goal: <130 2 hour post prandial goal: <180 Assessment & Plan (02/18/2025 6:52 PM EDT): Lab Results Component Value Date HGBA1C 8.3 (A) 01/30/2025 Post prandial glucose today 200 Glucometer sent Pt reports he has not been taking metformin, medication renewed with titration schedule , advised to hold day of procedure. Tolerating truclity though endorses some constipation Renewed arb as pt also reports he was not taking this, While pt blood sugars have been elevated, cystoscopy is warranted due to hematuria and risk factors. Defer to surgeon regarding ideal glucose control pre surgery Assessment & Plan (11/05/2024 1:27 PM EST): Current A1c: 7.5, start Metformin 500mg BID and Olmesartan 5mg daily BMP: Lab Results Component Value Date CREATININE 0.76 11/02/2024 CREATININE 1.08 03/12/2022 Microalbumin: Foot Exam: Complete at follow up Eye Exam: Discuss at follow up Lipid panel: ASCVD: Calculate pending updated labs Statin: Yes ASA: No THONG/ARB: No Encouraged regular aerobic exercise for improved glycemic control Encouraged daily foot checks Encouraged lean protein snacks and to avoid foods high in sugar and simple carbohydrates Treatment Goals: A1c goal: <7% FBG goal: <130 2 hour post prandial goal: <180 Need for home health care 10/17/2023 Assessment & Plan (10/17/2023 11:13 AM EST): Ex- is his COUNTY MANAGER This is generally a workable situation for him Right hip pain 10/14/2023 Assessment & Plan (10/17/2023 11:14 AM EST): Continue muscle relaxer PT re-ordered Primary insomnia 10/14/2023 Urinary retention 12/30/2022 Assessment & Plan (01/03/2023 6:00 AM EDT): At end of November 2022 Resolved s/p antibiotics Benign prostatic hyperplasia 04/09/2020 Assessment & Plan (04/12/2025 11:45 AM EDT): Continue follow up with Dr. Medina s/p TURP Last PSA slightly elevated at 4.2, plan to recheck in 4 months Asymptomatic today Assessment & Plan (04/29/2023 10:24 AM EDT): Go to [facility] today PSA normal 01/2023 Continue Flomax Assessment & Plan (01/03/2023 5:59 AM EDT): Needs to get re-established with urology, referred to [facility] today PSA ordered Continue Flomax Senile hyperkeratosis 04/10/2018 Sensorineural hearing loss, bilateral 09/09/2017 Cervical radiculopathy 08/04/2016 Degenerative lumbar spinal stenosis 08/04/2016 Assessment & Plan (04/29/2023 10:28 AM EDT): S/p interventions and surgery in 2021 Walks with walker for long distances, would benefit from flexibility of cane as well Patient s clinical findings support the need for [...] 10:24 AM EDT): Followed with GI at [facility], last in 2013, will re-refer as he needs repeat colonscopy Due for colonoscopy May 2023 Assessment & Plan (01/03/2023 5:57 AM EDT): [place] [facility] [place] for colonoscopy May 2023 Bipolar disorder 05/07/2016 Assessment & Plan (04/12/2025 11:46 AM EDT): Continue on depakote Continue on trazadone for insomnia Encouraged f/u with OP provider Pt denies current sx of depression, from mental health standpoint doing very well s/p TURP and housing secured. Assessment & Plan (10/17/2023 11:13 AM EST): Resume Depakote and Amitriptyline In depressive episode currently No SI/HI Encouraged to call his IOP today Assessment & Plan (04/29/2023 10:26 AM EDT): On Depakote and Amitriptyline In depressive episode currently No SI/HI Assessment & Plan (01/03/2023 6:00 AM EDT): On Depakote and Amitriptyline In depressive episode currently No SI/HI Chronic alcoholism in remission (CMS/HCC) 2015 Assessment & Plan (02/18/2025 6:52 PM EDT): Stable in remission Chronic pain 05/07/2016 Assessment & Plan (04/29/2023 10:23 AM EDT): Will go back to PT Waxes and wanes Walks with walker often, sometimes walking stick Resolved Problems Problem Noted Date Diagnosed Date Resolved Date Dental calculus 01/03/2024 02/01/2025 Annual visit for general efren lt medical examination without abnormal findings 01/03/2024 Dysuria 10/14/2023 06/29/2024 Impaired fasting glucose 05/26/2016 Dependent drug abuse ([facility]) 05/07/2016 11/05/2024 Assessment & Plan (01/03/2024 1:17 PM EDT): 90 days sober from crack use Encounters Date Type Department Care Team Description 07/05/2025 9:45 AM EDT Office Visit [facility] [address] [place] [id number] Emma Nuno MD Facial swelling (Primary Dx); Type 2 diabetes mellitus without complication, without long-term current use of insulin ([facility]) 07/05/2025 Travel 07/04/[address] [address] Emma Nuno MD chart prep 07/01/2025 Telephone [facility] [address] [place] [address] Eleuterio Briggs DMD returning call 06/24/[address] [address] Emma Nuno MD Med Refill 06/24/[address] [address] Emma uNno MD Primary insomnia; Type 2 diabetes mellitus without complication, without long-term current use of insulin ([facility]) 06/06/2025 Orders Only [facility] [address] [place] [address] Eleuterio Briggs, ZHAO 06/05/2025 Travel 05/29/2025 3:00 PM EDT Office Visit [facility] [address] [place] [phone] Rox Sheffield MD Acute bronchitis, unspecified organism 05/29/2025 Travel 05/17/2025 Telephone [facility] [address] [place] [phone] Emma Nuno MD Durable Medical Equipment ([facility] ONE Care: Seated Walker) 05/03/2025 1:30 PM EDT Office Visit [address] [address] Emma Nuno MD Pneumonia of both lower lobes due to infectious organism (Primary Dx); Type 2 diabetes mellitus without complication, without long-term current use of insulin (CMS/HCC) 05/03/2025 Travel 05/01/[address] [address] Emma Nuno MD chart prep 04/25/[address] [address] Emma Nuno MD 04/25/2025 Patient Outreach [address] [address] Emma Nuno MD Pre-visit Planning ((Unable to reach for PVP screening and or LVM) to be completed in office) 04/12/2025 10:30 AM EDT Office Visit [address] [id number] Chad Maharaj CNP Annual wellness visit (Primary Dx); Type 2 diabetes mellitus without complication, without long-term current use of insulin (CMS/HCC); Benign prostatic hyperplasia with urinary obstruction; Dietary counseling; Exercise counseling; Bipolar disorder, in partial remission, most recent episode depressed (CMS/HCC); Class 2 severe obesity with serious comorbidity and body mass index (BMI) of 37.0 to 37.9 in adult, unspecified obesity type (CMS/HCC) 04/12/2025 Travel 04/11/[address] [address] Chad Maharaj CNP Chart Prep 04/08/2025 Orders Only [address] [address] Emma Nuno MD Type 2 diabetes mellitus without complication, without long-term current use of insulin (CMS/HCC) (Primary Dx) 04/05/2025 Patient Outreach [facility] [address] [place], [place] [phone] Emma Nuno MD Pre-visit Planning (SDOH was already completed.) 04/04/[address] [phone] Emma Nuno MD Durable Medical Equipment ([facility] DME Request: Seated Romulo) from Last 3 Months Immunizations Immunization Administration Dates Next Due Influenza injectable quadriv alent IIV4 with preservative 07/07/2016 Influenza injectable quadriv alent preservative free 05/09/2023,08/24/2020,09/28/2018,07/12 Influenza, seasonal, injecta ble, preservative free 06/05/2025,06/27/2024,07/15/2014 Moderna Covid-19 Vaccine 12+ 12/17/2020,11/20/19 21 Pfizer Covid-19 Vaccine 12+ 06/27/2024, Pneumococcal Conjugate PCV 20 01/27/2023 Pneumococcal Polysaccharide PPSV23 07/07/2016 Tdap 02/02/2017,10/31/2013 Zoster, Recombinant 03/31/2023,01/27/2023 Family History Medical History Relation Name Comments Diabetes Maternal Grandfather Diabetes Maternal Grandmother Relation Name Status Comments Maternal Grandfather Maternal Grandmother Social History Tobacco Use Types Packs/Day Years Used Date Smoking Tobacco: Every Day Cigarettes Smokeless Tobacco: Never Tobacco Cessation:Ready to Q uit: Yes; Counseling Given: Yes Alcohol Use Standard Drinks/Week Comments Not Currently [...] the past 12 months, has t he [email or web address], [email or web address], oil or water company threatened to shut [...] 20 07/05/2025 9:38 AM EDT Oxygen Saturation 96% 05/29/2025 2:45 PM EDT Inhaled Oxygen Concentration - - Weight 99.6 kg (219 lb 9.6 oz) 07/05/2025 9:38 A M EDT Height 167.6 cm (5' 6 ) 07/05/2025 9:38 AM EDT Body Mass Index 35.44 07/05/2025 9:38 AM EDT Plan of Treatment Upcoming Encounters Date Type Department Care Team (Late st Contact Info) Description 07/08/2025 11:30 AM EST Office Visit [facility] [address] [place] [address] Xander, Nicki, OD [address] [place] [address] 07/29/2025 9:30 AM EST Medication Management [facility] [address] [place] [address] Jackie Viveros, PharmD [address] [place] [address] Health Maintenance Due Date Last Done Comments CT Colonography 1962 FIT DNA/Cologuard 1962 FIT 1962 FOBT 1962 Sigmoidoscopy 1962 Diabetes: Urine Protein Screening 1981 Lipid Panel 01/05/2025 01/06/2024, 10/12/2021 Dental Oral Exam 07/14/2025 2025, 02/2024, 01/29/2021 Dental Prophylaxis 08/07/2025 02/04/2025, 0 01/03/2024, 05/18/2021 Diabetes: Hemoglobin A1C 11/02/2025 025, 04/12/2025, 01/30/2025, Additional history exists Dental X-Ray: Bitewings 01/11/2026 01/11/20 25, 11/09/2023, 01/29/2021 Depression Screening 01/30/2026 01/30/2025, 01/31/20 25 Disability Screening 01/30/2026 01/30/2025 SDOH Screening 01/30/2026 01/30/2025 Eye Exam 03/28/2026 03/28/2024, 0712/2023, 03/28/2024, Additional history exists Diabetes: Foot Exam 04/01/2026 04/01/2025 Alcohol/Substance Use Screening 04/12/2026 04/12/2025 Tobacco Screening 06/05/2026 06/05/2025 Dental X-Ray: Full Mouth 12/21/2026 12/21/2023, 01/04 DTaP/Tdap/Td Vaccines (3 - Td or Tdap) 02/02/2027 02/02/2017, 10/31/2013 Colonoscopy 06/24/2028 06/24/2023, 04/29/2017 Colorectal Cancer Screening 06/24/2028 RSV Patients and Patients Aged 60 years or older (1 - 1-dose 75+ series) 2037 Pneumococcal Vaccine: 50+ Years Completed 01/27/2023, 07/07/2016 Zoster Vaccines Completed 03/31/2023, 01/27/2023 HIV Screening Completed 01/06/2024 Hepatitis C Screening Completed 01/06/2024 COVID-19 Vaccine Completed 06/27/2024, 05/2024, 08/25/2021, Additional history exists Influenza Vaccine Completed 06/05/2025, , 05/09/2023, Additional history exists HIB Vaccines Aged Out No longer eligi ble based on patient's age to complete this topic HPV Vaccines Aged Out No longer eligi ble based on patient's age to complete this topic Hepatitis A Vaccines Aged Out No long er eligible [...] without long-term current use of insulin (HCC) POCT INFLUENZA A (ID NOW RAPID MOLECULAR) Routine 05/29/2025 2:48 PM EDT Acute bronchitis, unspecified organism POCT RAPID COVID ANTIGEN Routine 05/29/2025 2:47 PM EDT Acute bronchitis, unspecified organism POCT INFLUENZA B (ID NOW RAPID MOLECULAR) Routine 05/29/2025 2:47 PM EDT Acute bronchitis, unspecified organism POCT GLYCATED HEMOGLOBIN, TOTAL Routine 05/03/2025 2:06 PM EDT Type 2 diabetes mellitus without complication, without long-term current use of insulin (CMS/HCC) POCT GLUCOSE Routine 05/03/2025 2:05 PM EDT Type 2 diabetes mellitus without complication, without long-term current use of insulin (CMS/HCC) TSH W/REFLEX TO FT4 Routine 04/23/2025 8 :39 AM EDT Type 2 diabetes mellitus without complication, without long-term current use of insulin (CMS/HCC) CBC WITH AUTO DIFFERENTIAL Routine 04/23/2025 8:39 AM EDT Type 2 diabetes mellitus without complication, without long-term current use of insulin (CMS/HCC) COMPREHENSIVE METABOLIC PANEL Routine 04/23/2025 8:39 AM EDT Type 2 diabetes mellitus without complication, without long-term current use of insulin (CMS/HCC) POCT GLUCOSE Routine 04/12/2025 11:05 AM EDT Type 2 diabetes mellitus without complication, without long-term current use of insulin (CMS/HCC) POCT GLYCATED HEMOGLOBIN, TOTAL Routine 04/12/2025 11:04 AM EDT Type 2 diabetes mellitus without complication, without long-term current use of insulin (CMS/HCC) PROPHYLAXIS - ADULT Routine 02/04/2025 8 :00 AM EDT BITEWINGS - 4 RADIOGRAPHIC IMAGES Routine 2025 3:00 PM EDT Dental caries Periodontal disease PERIODIC ORAL EVALUATION - ESTABLISHED PATIENT Routine 2025 3:00 PM EDT Dental caries Periodontal disease HEPATITIS C AB W/REFL TO HCV RNA, QN, PCR Routine 01/06/2024 2:11 PM EDT Routine screening for STI (sexually transmitted infection) HIV 1/2 ANTIGEN/ANTIBODY, FOURTH GENERATION W/RFL Routine 01/06/2024 2:11 PM EDT Routine screening for STI (sexually transmitted infection) LIPID PANEL, STANDARD Routine 01/06/2024 2:11 PM EDT Class 2 obesity without serious comorbidity with body mass index (BMI) of 35.0 to 35.9 in adult, unspecified obesity type PANORAMIC RADIOGRAPHIC IMAGE Routine 12/21/2023 10:30 AM EDT Dental caries HM COLONOSCOPY Routine 06/24/2023 Tubular adenoma of colon from Last 3 Months or Most Recently Relevant to Health Maintenance Results * POCT Glucose (07/05/2025 9:39 AM EDT) Only the most recent of3 resultswithin the time period is included. Glucose Blood, POC 172 60 - 200 mg/dL QC Media Lot # [id number] Lot# Expiration Date Blood Capillary blood specimen / Unknown 07/05/2025 9:39 AM EDT us Emma Nuno MD POINT OF CARE TEST ENTER/EDIT ORDERABLES Final Result * Influenza A (ID NOW Rapid Molecular) (05/29/2025 2:48 PM EDT) Influenza A Negative Negative, Indeterminate [facility] Swab 05/29/2025 2:48 PM EDT us Rox Sheffield MD POINT OF CARE TEST ENTER/EDIT OR DERABLES Final Result [facility] [address] [place] [phone] * Influenza B (ID NOW Rapid Molecular) (05/29/2025 2:47 PM EDT) Pathologist [facility] [place] Influenza B Negative Negative, Indeterminate [facility] Swab 05/29/2025 2:47 PM EDT Result [facility] Rox Sheffield MD POINT OF CARE TEST ENTER/EDIT OR DERABLES Final Result [facility] [address] [place] [address] [phone] * POCT Rapid COVID Ag (05/29/2025 2:47 PM EDT) [facility] Rapid COVID Ag Negative Swab 05/29/2025 2:47 PM EDT Result [facility] Rox Sheffield MD POINT OF CARE TEST ENTER/EDIT OR DERABLES Final Result * (ABNORMAL) POCT HGB A1C (05/03/2025 2:06 PM EDT) Only the most recent of2 resultswithin the time period is included. [facility] Hemoglobin A1C 6.7(A) 4.0 - 5.7 % QC Media Lot # [id number] Lot# Expiration Date Blood 05/03/2025 2:06 PM EDT Result [facility] Emma Nuno MD POINT OF CARE TEST ENTER/EDIT ORDERABLES Final Result * TSH W/Reflex to FT4 (04/23/2025 8:39 AM EDT) [facility] TSH reflex Free T4 2.27 0.32 - 4.0 uIU/mL [facility] Blood Venous blood specimen / Unknown 04/23/2025 8:39 AM EDT 04/23/2025 10:58 AM EDT Chad Maharaj [facility] BLOOD ORDERABLES Palma starr Result [facility] [address], [place] [phone] * CBC auto differential (04/23/2025 8:39 AM EDT) White Blood Count 9.3 4.8 - 10.8 X10*3/uL [facility] Red Blood Count 5.27 4.60 - 5.80 X10*6/uL [facility] Hemoglobin 15.4 14.0 - 18.0 g/dl [facility] Hematocrit 47.2 42.0 - 52.0 % [facility] Mean Corpuscular Volume 89.6 80.0 - 98.0 fL [facility] Mean Corpuscular Hemoglobin 29.2 27.0 - 33.0 pg [facility] Mean Corpuscular HGB Conc 32.6 31.0 - 36.0 g/dl [facility] Red Cell Distribution Width 13.7 11.0 - 16.0 % [facility] Platelet Count 296 160 - 400 X10*3/uL [facility] Mean Platelet Volume 9.5 9.4 - 12.4 fL [facility] Neutrophils Percent Auto 61.6 45 - 73 % [facility] Imm Gran Pct Auto 0.3 0.0 - 0.4 % [facility] Lymphocytes Percent Auto 26.0 20 - 40 % [facility] Monocytes Percent Auto 9.3 2 - 11 % [facility] Eosinophils Percent Auto 2.3 0 - 4 % [facility] Basophils Percent Auto 0.5 0 - 2 % [facility] NRBC Pct Auto 0.0 0.0 - 0.2 /100WBC [facility] Neutrophils Absolute Auto 5.7 2.0 - 8.3 x10*3/uL [facility] Imm Gran Abs Auto 0.03 0.00 - 0.03 X10*3/uL [facility] Lymphocytes Absolute Auto 2.4 1.2 - 4.9 X10*3/uL [facility] Monocytes Absolute Auto 0.9 0.1 - 1.2 X10*3/uL [facility] Eosinophils Absolute Auto 0.2 0.0 - 0.4 X10*3/uL [facility] Basophils Absolute Auto 0.1 0.0 - 0.2 X10*3/uL [facility] NRBC Abs Auto 0.000 0.0 - 0.012 X10*3/uL [facility] Blood Venous blood specimen / Unknown 04/23/2025 8:39 AM EDT 04/23/2025 10:58 AM EDT Chad Maharaj [facility] BLOOD ORDERABLES Palma starr Result [facility] [address] [place] [address] [phone] * Comprehensive Metabolic Panel (04/23/2025 8:39 AM EDT) Sodium 139 135 - 145 mmol/L [facility] Potassium 4.5 3.3 - 5.1 mmol/L [facility] Chloride 103 96 - 108 mmol/L [facility] Carbon Dioxide 28 22 - 29 mmol/L [facility] Anion Gap 13 12 - 20 [facility] Urea Nitrogen (BUN) 9 9 - 16 mg/dL [facility] Creatinine, Serum 0.88 0.5 - 1.4 mg/dL [facility] Estimated Glomerular Filt Rate >60 [facility] Comment:Chronic Kidney Disea se: Estimated GFR < 60 mL/min/[id number] Kidney Disease: Estimated GFR < 15 mL/min/1.73m2 Glucose 100 60 - 115 mg/dL [facility] Calcium 9.0 8.4 - 10.2 mg/dL [facility] Bilirubin, Total 0.4 0.0 - 1.0 mg/dL [facility] Aspartate Amino Transferase 25 5 - 37 U/L [facility] Alanine Aminotransferase 23 0 - 40 U/L [facility] Total Protein 7.1 6.5 - 8.0 g/dL [facility] Albumin Level 4.4 3.5 - 5.0 g/dL [facility] Alkaline Phosphatase 65 39 - 117 U/L [facility] Blood Venous blood specimen / Unknown 04/23/2025 8:39 AM EDT 04/23/2025 10:58 AM EDT Chad Maharaj CNP LAB BLOOD ORDERABLES Palma l Result Performing Organization Address [facility] Co de Phone Number [facility] [address] [place] [address] [phone] * Hepatitis C Antibody with Reflex to HCV, RNA, Quantitative, Real-Time PCR (01/06/2024 2:11 PM EDT) Hepatitis C Antibody Nonreactive Nonreactive [facility] Comment:Antibodies to HCV no t detected; does not exclude early acuteHCV infection. Blood Venous blood specimen / Unknown 01/06/2024 2:11 PM EDT 01/06/2024 2:11 PM EDT Emma Nuno MD LAB BLOOD ORDERABLES Final Res ult Performing Organization Address [facility] Co de Phone Number [facility] [address] [place] [address] [phone] * HIV-1/2 Antigen and Antibodies, Fourth Generation, with Reflexes (01/06/2024 2:11 PM EDT) HIV AB/AG Nonreactive Nonreactive [facility] Comment:HIV-1 p24 Ag and/or HIV-1/HIV-2 Ab not detected.A test result that is nonreactive does not exclude thepossibility of exposure to or infection with HIV-1 and/orHIV-2. Nonreactive results in this assay for individualswith prior exposure to HIV-1 and/or HIV-2 may be due toantigen and antibody levels that are below the limit ofdetection of this assay.The [employer] HIV Ag/Ab Combo assay result andsupplemental assay results should be interpreted inconjunction with the patient's clinical presentation,history and other laboratory results. If the results areinconsistent with clinical evidence, additional testing issuggested to confirm the result. Blood Venous blood specimen / Unknown 01/06/2024 2:11 PM EDT 01/06/2024 2:11 PM EDT Emma Nuno MD LAB BLOOD ORDERABLES Final Res ult Performing Organization Address [facility] de Phone Number [facility] [address] [place] [phone] * (ABNORMAL) Lipid Panel, Standard (01/06/2024 2:11 PM EDT) Triglycerides 256(H) <150 mg/dL [facility] Comment:Desirable Triglyceri de: less than 150 mg/dLBorderline High Triglyceride 150-199 mg/dLHigh Triglyceride: 200-499 mg/dLVery High Triglyceride: greater than or equal to 5OO mg/dL Cholesterol 150 <200 mg/dL [facility] Comment:Desirable Cholestero l: less than 200 mg/dLBorderline High Cholesterol: 200-239 mg/dLHigh Cholesterol: greater than 239 mg/dL LDL Cholesterol Calculated 64 <100 mg/dL [facility] Comment:Desirable LDL: less than 100 mg/dLNear Optimal/Above Optimal LDL: 110- 129 mg/dLBorderline High LDL: 130-159 mg/dLHigh LDL: 160-189 mg/dLVery High LDL: greater than or equal to 190 mg/dL HDL Cholesterol 35(L) >40 mg/dL [facility] Comment:Desirable HDL: great er than 40 mg/dL Note: This HDL assay may give artificially low results in patients with liver disease. Blood Venous blood specimen / Unknown 01/06/2024 2:11 PM EDT 01/06/2024 2:11 PM EDT Emma Nuno MD LAB BLOOD ORDERABLES Final Res ult Performing Organization Address [facility] Co de Phone Number [facility] [address] [place] [phone] * (ABNORMAL) Colonoscopy (06/24/2023) Colonoscopy Abnormal(A ) Normal Impressions Emma Nuno MD - 06/24/2023 COLON, ASCENDING-POLYP: - TUBULAR ADENOMA. us Historical Provider MD HEALTH MAINTENANCE Final Result from Last 3 Months or Most Recently Relevant to Health Maintenance Insurance [place] [id number] [facility] Care Teams Rubber Turner Relationship Specialty Start Date End Date Emma Nuno MD [address] [place] [phone] PCP - General Family Medicine 09/19/20 Jackie Viveros, KassidyD [address] [place] [phone] Pharmacist Pharmacy 06/05/25
--- OUTSIDE RECORDS SUMMARY | 2025-07-05 13:19 | XMS_ITS | Encounter Summary ---
Author Organization [employer] Address [address] [place] [address] [address] [place] [address] Care Team Providers Care Piano Stringer Name Role Phone Emma Nuno MD Primary Care Provider [phone] Jackie Viveros PharmD Unavailable Reason for Referral * Consultation (Routine) - Authorized Specialty Diagnoses / Procedures Referred By Maik kirk Referred To Contact Pharmacy Diagnoses Type 2 diabetes mellitus without complication, without long-term current use of insulin (HCC) Emma Nuno MD [address] [place] [address] Phone: tel: fax: Referral ID Status Reason Start Date Expiration Date Visits Requested Visits Authorized [id number] Authorized Consult and Treat 04/08/2025 04/08/2026 6 6 Scheduling Instructions New diagnosis of DM2 in February 2025, please provide background education and assistance with DM2 control Encounter Details Date Type Department Care Team (Late st Contact Info) Description 04/08/2025 Orders Only [facility] [address] [place] [address] Emma Nuno MD [address] [place], [place] [phone] Type 2 diabetes mellitus without complication, without long-term current use of insulin (CMS/HCC) (Primary Dx) Social History Tobacco Use Types [...] as of this encounter Miscellaneous Notes * Assessment & Plan Note - Emma Nuno MD - 04/08/2025 10:39 AM EDT Associated Problem(s): Type 2 diabetes mellitus without complication, without long-term current useof insulin ([facility]) Current A1c: 8.3, continue Metformin 500mg BID [...] <130 2 hour post prandial goal: <180 documented in this encounter Plan of Treatment Upcoming Encounters Date Type Department Care Team (Late st Contact Info) Description 07/08/2025 11:30 AM EST Office Visit [facility] [address] [place] [address] Xander, Nicki, OD [address] [place] [address] 07/29/2025 9:30 AM EST Medication Management [facility] [address] [place] [address] Jackie Viveros, PharmD [address] [place] [address] Scheduled Referrals Name Type Priority Associated Diagnoses Orde r Schedule Referral to Pharmacy CDTM Outpatient Referral Routine Type 2 diabetes mellitus without complication, without long-term current use of insulin ([facility]) Ordered: 04/08/2025 documented as of this encounter Visit Diagnoses Diagnosis Type 2 diabetes mellitus without complication, without long-term current use of insulin (HCC)- Primary documented in this encounter Additional Health Concerns Assessment Noted Time PHQ-9 Depression Total Score: 1 01/31/20 25 4:35 PM EDT documented as of this encounter Care Teams Piano Stringer Relationship Specialty Start Date End Date Emma Nuno MD [address] [place] [address] PCP - General Family Medicine 09/19/20 Jackie Viveros PharmD [address] [place] [address] Pharmacist Pharmacy 06/05/25 documented as of this encounter
--- OUTSIDE RECORDS SUMMARY | 2025-07-05 13:19 | XMS_ITS | Encounter Summary ---
Author Organization [employer] Address [address] [facility] [address] [place] [address] Care Team Providers Care Blackjack Dealer Name Role Phone Emma Nuno MD Primary Care Provider [phone] Jackie Viveros PharmD Unavailable [phone] Encounter Details Date Type Department Care Team ([facility] Contact Info) Description 02/18/2025 Orders Only [facility] [address] [place] [address] Provider, MD Rubi Social History Tobacco Use [...] Description 07/08/2025 11:30 AM EST Office Visit [facility] [address] [place] [address] Xander, Nicki, OD [address] [place] [address] 07/29/2025 9:30 AM EST Medication Management [facility] [address] [place] [address] Jackie Viveros, PharmD [address] [place] [address] documented as of this encounter Procedures Procedure Name Priority Date/Time Associated Diagnosis Comments CT ABDOMEN PELVIS W CONTRAST Routine 02/14/2025 1:47 PM EDT documented in this encounter Results * CT Abdomen Pelvis w/ Contrast (02/14/2025 1:47 PM EDT) Anatomical Region Laterality Modality Body, Pelvis, Abdomen Computed T omography us Historical Provider MD NGUYEN CT PROCEDURES Final R esult documented in this encounter Visit Diagnoses Not on filedocumented in this encounter Additional Health Concerns Assessment Noted Time PHQ-9 Depression Total Score: 1 01/31/20 25 4:35 PM EDT documented as of this encounter Care Teams Blackjack Dealer Relationship Specialty Start Date End Date Emma Nuno MD [address] [place] [address] PCP - General Family Medicine 09/19/20 Jackie Viveros PharmD [address] [place] [address] Pharmacist Pharmacy 06/05/25 documented as of this encounter
--- OUTSIDE RECORDS SUMMARY | 2025-07-05 13:19 | XMS_ITS | Encounter Summary ---
Author Organization [employer] Address [address] [place] [address] Care Team Providers Care Dramatic Critic Name Role Phone Emma Nuno MD Primary Care Provider [phone] Encounter Details Date Type Department Care Team (Late st Contact Info) Description 04/03/2025 Lab Requisition [facility] [address] [facility] [place] [phone] Markos Negron MD [address] [place] [address] Urinary tract infection, site not specified Social [...] this encounter Results * (ABNORMAL) Culture urine (04/03/2025 9:00 AM EDT) Culture, Urine >=100,000 CFU/mL Staphylococcus epidermidis(A) PITO 04/06/2025 8:45 AM EDT [facility] Comment: The organism value for [...] PITO 1 ug/ml: Susceptible Staphylococcus epidermidis Vancomycin PIOT 1 ug/ml: Susceptible Staphylococcus epidermidis Tetracycline PITO 2 ug/ml: Susceptible Staphylococcus epidermidis Nitrofurantoin PITO <=16 ug/ml: Susceptible Staphylococcus epidermidis Rifampin PITO <=0.5 ug/ml: Susceptible us Markos Negron MD LAB MICROBIOLOGY - GENERAL ORDERABLES Final Result Performing Organization Address City/State/[facility] Co de Phone Number [facility] [address] [place] [address], documented in this encounter Visit Diagnoses Diagnosis Urinary tract infection, site not specified documented in this encounter Additional Health Concerns Infection Onset Date Last Indicated Resolved Time MRSA 02/20/2025 02/20/2025 documented as of this encounter Care Teams Dramatic Critic Relationship Specialty Start Date End Date Emma Nuno MD [address] [place] [phone] PCP - General [employer] Plant Maintainer 02/20/25 documented as of this encounter
[2025-07-05 13:26] LABS: Hematocrit 49.6 % (42.0-52.0); Hemoglobin 15.9 g/dl (14.0-18.0); Imm Gran Abs Auto 0.03 X10*3/uL (0.00-0.03); Imm Gran Pct Auto 0.3 % (0.0-0.4); Lymphocytes Absolute Auto 3.2 X10*3/uL (1.2-4.9); Mean Corpuscular HGB Conc 32.1 g/dl (31.0-36.0); Mean Corpuscular Hemoglobin 28.4 pg (27.0-33.0); Mean Corpuscular Volume 88.6 fL (80.0-98.0); NRBC Abs Auto 0.000 X10*3/uL (0.0-0.012); NRBC Pct Auto 0.0 /100WBC (0.0-0.2); Platelet Count 272 X10*3/uL (160-400); Red Blood Count 5.60 X10*6/uL (4.60-5.80); White Blood Count 10.6 X10*3/uL (4.8-10.8)
[2025-07-05 13:37] LABS: Cholesterol 137 mg/dL (<200); HDL Cholesterol 36 mg/dL (>40); Triglycerides 93 mg/dL (<150)
[2025-07-05 14:17] LABS: Microalbum/Creatinine Ratio Ur 11.7 ug/mg cr (<30)
== END 2025-07-05 11:41 | disposition home or self-care (01) ==
LOC: HO.HHCL 11:40
PROVIDERS: PCP General Practice; Visit Provider General Practice
DX: E11.9 Type 2 diabetes mellitus without complications (principal); R22.0 Localized swelling, mass and lump, head
CPT/HCPCS: 36415; 80061; 82043; 82570; 85025; 85652